=== PATIENT | male | born 1940 | race Caucasian/White ===

== ENCOUNTER 2017-07-12 11:49 | Emergency (ER) | payer MEDICARE, OTHER, MEDICAID ==
[2017-07-12 14:05] VITALS: BP 128/59
--- NOTE | 2017-07-23 09:37 | EDM.PDOC ---
ED HPI GENERAL MEDICAL PROBLEM - General Chief Complaint: Lower Extremity Injury/Pain Stated Complaint: INFECTED TOE Time Seen by Provider: 07/12/17 12:00 Source of Information: Reports: Patient, Prison Records History Limitations: Reports: No Limitations - History of Present Illness INITIAL COMMENTS - FREE TEXT/NARRATIVE: This is a 76yo M with right second toe ischemia and progression up the foot. Patient states he feels increased pain of the foot and toe. Staff have reported a worsening of symptoms since his revascularization in [place]. Onset: Today Duration: Hour(s):, Getting Worse Location: Reports: Lower Extremity, Right Severity: Moderate Improves with: Reports: None Worsens with: Reports: None Associated Symptoms: Reports: No Other Symptoms - Related Data Allergies Allergy/AdvReac Type Severity Reaction Status Date / Time No Known Allergies Allergy Verified 07/22/17 09:42 Home Meds: Home Meds Acetaminophen [Tylenol] 650 mg PO Q6H PRN 09/21/16 [History] Acetaminophen/HYDROcodone [[place] 325-5 MG] 1 - 2 tab PO Q6HR PRN 09/21/16 [ History] Alum Hydrox/Mag Hydrox/Simeth [Maalox Advanced] 1 ml PO BIDMEALS 09/21/16 [ History] Aspirin/Dipyridamole [Aggrenox 200-25 MG] 1 cap PO BID 09/21/16 [History] Ferrous Sulfate 325 mg PO BIDMEALS 09/21/16 [History] Finasteride [Proscar] 5 mg PO QPM 09/21/16 [History] Furosemide [Lasix] 20 mg PO DAILY 09/21/16 [History] Gabapentin [Neurontin] 300 mg PO DAILY 09/21/16 [History] Insulin Glarg,Human.Rec.Analog [Lantus Solostar] 24 unit SUBCUT QPM 09/21/16 [ History] L.acidoph,Paracasei, B.lactis [Probiotic] 1 each PO DAILY 09/21/16 [History] Loperamide HCl [Imodium A-D] 2 mg PO Q2H PRN 09/21/16 [History] Meclizine HCl 25 mg PO DAILY PRN 09/21/16 [History] Multivitamins [Childrens Chewable Vitamin] 1 tab PO DAILY 09/21/16 [History] Pantoprazole [ProTONIX] 40 mg PO ACBREAKFAST 09/21/16 [History] Sertraline [Zoloft] 50 mg PO DAILY 09/21/16 [History] Spironolactone [Aldactone] 12.5 mg PO Q48H 09/21/16 [History] atorvaSTATin [Lipitor] 20 mg PO BEDTIME 09/21/16 [History] diphenhydrAMINE [Benadryl] 50 mg PO Q6H PRN 09/21/16 [History] risperiDONE [RisperiDAL] 0.5 mg PO BID 09/21/16 [History] Acetaminophen/HYDROcodone [[place] 325-5 MG] 1 tab PO DAILY@1100 10/01/16 [History ] Meclizine HCl 25 mg PO DAILY 10/01/16 [History] Sulfamethoxazole/Trimethoprim [Bactrim Ds Tablet] 1 each PO BID #28 tablet 10/01 [Rx] Past Medical History HEENT History: Reports: Hard of Hearing, Sinusitis, Other (See Below) Other HEENT History: Wears glasses Cardiovascular History: Reports: High Cholesterol, Hypertension, Other (See Below) Other Cardiovascular History: CHF Gastrointestinal History: Reports: Other (See Below) Other Gastrointestinal History: Esophagitis Reflux Genitourinary History: Reports: Prostate Disorder Musculoskeletal History: Reports: Other (See Below) Other Musculoskeletal History: Contracture of toe, right foot, and 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 Neurological History: Reports: CVA Psychiatric History: Reports: Depression Endocrine/Metabolic History: Reports: Diabetes, Type II Hematologic History: Reports: Other (See Below) Other Hematologic History: 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 ED EXAM, GENERAL - Physical Exam Exam: See Below Exam Limited By: No Limitations General Appearance: Alert, WD/WN, Mild Distress Ears: Normal External Exam Head: Atraumatic, Normocephalic Neck: Normal Inspection Respiratory/Chest: No Respiratory Distress, Lungs Clear Cardiovascular: Other (decreased pulses of right lower ext, no pulses of right foot) Peripheral Pulses: 0: Dorsalis Pedis (R), 1+: Posterior Tibial (L), Posterior Tibial (R), Dorsalis Pedis (L) GI/Abdominal: Normal Bowel Sounds Neurological: Alert, Oriented, Sensory/Motor Deficit Psychiatric: Normal Affect, Normal Mood Skin Exam: Mottled (right foot) Course - Vital Signs Last Recorded V/S: Last Vital Signs Temp 36.3 C 07/12/17 12:03 Pulse 69 07/12/17 12:03 Resp 18 07/12/17 12:03 BP 128/59 L 07/12/17 12:03 Pulse Ox 99 07/12/17 12:03 Departure - Departure Time of Disposition: 13:00 Disposition: DC/Tfer to Acute Hospital 02 Reason for Transfer *Q: Other Condition: Serious Clinical Impression: Ischemic foot Referrals: PCP,None [Primary Care Provider] - Forms: ED Department Discharge Care Plan Goals: Patient transferred to [place] ER for further evaluation and management by Vascular.
== END 2017-07-12 13:48 ==
LOC: LB.ED 11:49
DX: I99.8 Other disorder of circulatory system (principal); M79.671 Pain in right foot
CPT/HCPCS: 99284; A0425; A0429

== ENCOUNTER 2017-07-22 08:53 | Emergency (ER) | payer MEDICARE, OTHER, MEDICAID ==
--- NOTE | 2017-07-22 09:34 | EDM.PDOC ---
ED HPI GENERAL MEDICAL PROBLEM - General Chief Complaint: Cardiovascular Problem Stated Complaint: RE-VASC R THIGH; ESCAR R TOE Time Seen by Provider: 07/22/17 09:24 Source of Information: Reports: Patient, Family, Correction Records, RN History Limitations: Reports: No Limitations - History of Present Illness INITIAL COMMENTS - FREE TEXT/NARRATIVE: 76 yr male presents with black right 2nd toe with pain to toe. Pt is alert and aware of this and is requesting consult for surgery. and daughters are present and in agreement to plan. Pt had been [facility] Jul 12 through July 17, [address] Gordillo for vascular procedure. Pt's toe changed color 07-19-17 to purple with no capillary refill. Discussed this with SANDIE Ibarra and states pt should be sent to [facility] on Saturday for possible below knee amputation. Pt has been alert and oriented this weekend and had increased amount of pain, controlled with [place]. He has been on Augmentin over the weekend. Pt does take Aggrenox daily. Hx of PAD, CAD, S/P AK, S/P CABG, S/P CVA with right HP, DM2, bipolar disorder and atherectomy of right tibial artery with [employer] 04/[address] Gordillo. [place] is [place] resident in the [facility]. P: CBC, lactic acid and BMP. Discussed pt status with Kevin Marx MD and states to transfer pt there today. - Related Data Allergies Allergy/AdvReac Type Severity Reaction Status Date / Time No Known Allergies Allergy Verified 07/22/17 09:42 Home Meds: Home Meds Acetaminophen [Tylenol] 650 mg PO Q6H PRN 09/21/16 [History] Acetaminophen/HYDROcodone [[place] 325-5 MG] 1 - 2 tab PO Q6HR PRN 09/21/16 [ History] Alum Hydrox/Mag Hydrox/Simeth [Maalox Advanced] 1 ml PO BIDMEALS 09/21/16 [ History] Aspirin/Dipyridamole [Aggrenox 200-25 MG] 1 cap PO BID 09/21/16 [History] Ferrous Sulfate 325 mg PO BIDMEALS 09/21/16 [History] Finasteride [Proscar] 5 mg PO QPM 09/21/16 [History] Furosemide [Lasix] 20 mg PO DAILY 09/21/16 [History] Gabapentin [Neurontin] 300 mg PO DAILY 09/21/16 [History] Insulin Glarg,Human.Rec.Analog [Lantus Solostar] 24 unit SUBCUT QPM 09/21/16 [ History] L.acidoph,Paracasei, B.lactis [Probiotic] 1 each PO DAILY 09/21/16 [History] Loperamide HCl [Imodium A-D] 2 mg PO Q2H PRN 09/21/16 [History] Meclizine HCl 25 mg PO DAILY PRN 09/21/16 [History] Multivitamins [Childrens Chewable Vitamin] 1 tab PO DAILY 09/21/16 [History] Pantoprazole [ProTONIX] 40 mg PO ACBREAKFAST 09/21/16 [History] Sertraline [Zoloft] 50 mg PO DAILY 09/21/16 [History] Spironolactone [Aldactone] 12.5 mg PO Q48H 09/21/16 [History] atorvaSTATin [Lipitor] 20 mg PO BEDTIME 09/21/16 [History] diphenhydrAMINE [Benadryl] 50 mg PO Q6H PRN 09/21/16 [History] risperiDONE [RisperiDAL] 0.5 mg PO BID 09/21/16 [History] Acetaminophen/HYDROcodone [[place] 325-5 MG] 1 tab PO DAILY@1100 10/01/16 [History ] Meclizine HCl 25 mg PO DAILY 10/01/16 [History] Sulfamethoxazole/Trimethoprim [Bactrim Ds Tablet] 1 each PO BID #28 tablet 10/01 [Rx] Past Medical History HEENT History: Reports: Hard of Hearing, Sinusitis, Other (See Below) Other HEENT History: Wears glasses Cardiovascular History: Reports: High Cholesterol, Hypertension, Other (See Below) Other Cardiovascular History: CHF Gastrointestinal History: Reports: Other (See Below) Other Gastrointestinal History: Esophagitis Reflux Genitourinary History: Reports: Prostate Disorder Musculoskeletal History: Reports: Other (See Below) Other Musculoskeletal History: Contracture of toe, right foot, and 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 Neurological History: Reports: CVA Psychiatric History: Reports: Depression Endocrine/Metabolic History: Reports: Diabetes, Type II Hematologic History: Reports: Other (See Below) Other Hematologic History: 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 Dermatologic History: Reports: Cellulitis - Past Surgical History Cardiovascular Surgical History: Reports: Other (See Below) Social & Family History - Family History Family Medical History: Noncontributory - Tobacco Use Smoking Status *Q: Never Smoker - Caffeine Use Caffeine Use: Reports: Soda - Recreational Drug Use Recreational Drug Use: No ED ROS GENERAL - Review of Systems Review Of Systems: See Below Constitutional: Reports: Weakness HEENT: Reports: Glasses Respiratory: Reports: No Symptoms Cardiovascular: Reports: Other (black right 2nd toe.) Endocrine: Reports: Other (diabetic) GI/Abdominal: Reports: No Symptoms Musculoskeletal: Reports: Other (pain right foot) Skin: Reports: Change in Color (right toe) Neurological: Reports: No Symptoms Psychiatric: Reports: No Symptoms ED EXAM, GENERAL - Physical Exam Exam: See Below Exam Limited By: No Limitations General Appearance: Alert, No Apparent Distress Ear Exam: Bilateral Ear: Auricle Normal Throat/Mouth: Normal Inspection, Normal Lips, Normal Teeth Head: Atraumatic, Normocephalic Neck: Supple, Non-Tender Respiratory/Chest: No Respiratory Distress, Lungs Clear, Decreased Breath Sounds Cardiovascular: Regular Rate, Rhythm, No Edema, Other (irregular heart rate noted.) GI/Abdominal: Soft, Non-Tender Extremities: No Pedal Edema, Other (pain right foot, medicated around 8am, wheelchair used for mobility) Neurological: Alert, Oriented Psychiatric: Normal Mood Skin Exam: Warm, Dry, Normal Color Course - Orders/Labs/Meds Orders: Active Orders 24 hr Category Date Time Status BASIC METABOLIC PANEL,BMP [CHEM] Stat Lab 07/22/17 09:24 Ordered LACTIC ACID [CHEM] Stat Lab 07/22/17 09:24 Ordered Labs: Laboratory Tests 07/22/17 Range/Units 09:46 WBC 8.6 (4.0-11.0) K/uL RBC 3.34 L (4.50-6.50) M/uL Hgb 9.9 L (13.0-18.0) g/dL Hct 31.6 L (40.0-54.0) % MCV 95 (76-96) fL MCH 29.6 (27.0-32.0) pg MCHC 31.3 (31.0-35.0) g/dL RDW 14.0 (11.0-16.0) % Plt Count 186 D (150-400) K/uL MPV 9.1 (6.0-10.0) fL Neut % (Auto) 67.4 (45.0-70.0) % Lymph % (Auto) 17.1 L (20.0-40.0) % [place] % (Auto) 12.0 H (3.0-10.0) % Eos % (Auto) 3.0 (1.0-5.0) % Baso % (Auto) 0.5 (0.0-0.5) % Neut # (Auto) 5.82 (2.00-7.50) K/uL Lymph # (Auto) 1.48 L (1.50-4.00) K/uL [place] # (Auto) 1.04 H (0.20-0.80) K/uL Eos # (Auto) 0.26 (0.04-0.40) K/uL Baso # (Auto) 0.04 (0.02-0.10) K/uL - Re-Assessments/Exams Free Text/Narrative Re-Assessment/Exam: 07/22/17 09:48 is Isabell, her daughter is with her and will meet the ambulance in [facility]. Departure - Departure Time of Disposition: 09:48 Disposition: DC/Tfer to Acute Hospital 02 Reason for Transfer *Q: Other (surgical consult, amputation probable) Condition: Good Clinical Impression: Ischemic necrosis of toe Referrals: PCP,None [Primary Care Provider] - Forms: ED Department Discharge - My Orders Last 24 Hours: My Active Orders 07/22/17 09:24 BASIC METABOLIC PANEL,BMP [CHEM] Stat LACTIC ACID [CHEM] Stat - Assessment/Plan Last 24 Hours: My Active Orders 07/22/17 09:24 BASIC METABOLIC PANEL,BMP [CHEM] Stat LACTIC ACID [CHEM] Stat
[2017-07-22 10:07] VITALS: BP 138/71
== END 2017-07-22 10:00 ==
LOC: LB.ED 08:53
DX: E11.52 Type 2 diabetes mellitus with diabetic peripheral angiopathy with gangrene (principal); I96 Gangrene, not elsewhere classified; I11.0 Hypertensive heart disease with heart failure; I25.10 Atherosclerotic heart disease of native coronary artery without angina pectoris; I50.9 Heart failure, unspecified; E78.00 Pure hypercholesterolemia, unspecified; F32.9 Major depressive disorder, single episode, unspecified; Z79.4 Long term (current) use of insulin; Z79.82 Long term (current) use of aspirin; Z79.899 Other long term (current) drug therapy
CPT/HCPCS: 36415; 80048; 83605; 85025; 99284; A0425; A0429

== ENCOUNTER 2017-07-26 09:40 | Inpatient (IN) | payer MEDICARE, OTHER, MEDICAID ==
[2017-07-26] MEDS ORDERED: Acetaminophen/HYDROcodone 325-10 MG Tab PO ONE (16:20)
[2017-07-26] MEDS ORDERED: Tuberculin, PPD 5 Units/0.1 ML 1 ML MDV IDERM ONE (16:39)
[2017-07-26] MEDS ORDERED: diphenhydrAMINE 50 MG Cap PO PRN (16:41)
--- NOTE | 2017-07-26 16:50 | PCM.HP ---
H&P History of Present Illness - General Date of Service: 07/26/17 Admit Problem/Dx: Admission Diagnosis/Problem Admission Diagnosis/Problem Amputation of lower limb Source of Information: Other (Hospital records) History Limitations: Reports: No Limitations - History of Present Illness Initial Comments - Free Text/Narative: Pt is a 76 ryan old male with old CVA with right sided hemiplegia with PVD, who has had right below knee amputation done at [facility]. He is here for rehab. Pt has had uneventful post op period. He has had some urinary retention, but has been passing urine on his own and does need 1-2 times straight catheterizing to empty the bladder. No fever or chills. Apparently during transfer pt did slide of the chair and has been c/o pain over hte righ shoulder and upper back. No skin tear or bruising. no other complaints. Severity: Moderate Improves with: Reports: None Worsens with: Reports: None Associated Symptoms: Denies: Confusion, Chest Pain, Cough, Fever/Chills, Nausea/ Vomiting, Rash, Seizure, Shortness of Breath, Weakness - Related Data Allergies/Adverse Reactions: Allergies Allergy/AdvReac Type Severity Reaction Status Date / Time No Known Allergies Allergy Verified 07/22/17 09:42 Home Medications: Home Meds Acetaminophen [Tylenol] 650 mg PO Q6H PRN 09/21/16 [History] Acetaminophen/HYDROcodone [[place] 325-5 MG] 1 - 2 tab PO Q6HR PRN 09/21/16 [ History] Alum Hydrox/Mag Hydrox/Simeth [Maalox Advanced] 1 ml PO BIDMEALS 09/21/16 [ History] Aspirin/Dipyridamole [Aggrenox 200-25 MG] 1 cap PO BID 09/21/16 [History] Ferrous Sulfate 325 mg PO BIDMEALS 09/21/16 [History] Finasteride [Proscar] 5 mg PO QPM 09/21/16 [History] Furosemide [Lasix] 20 mg PO DAILY 09/21/16 [History] Gabapentin [Neurontin] 300 mg PO DAILY 09/21/16 [History] Insulin Glarg,Human.Rec.Analog [Lantus Solostar] 24 unit SUBCUT QPM 09/21/16 [ History] L.acidoph,Paracasei, B.lactis [Probiotic] 1 each PO DAILY 09/21/16 [History] Loperamide HCl [Imodium A-D] 2 mg PO Q2H PRN 09/21/16 [History] Meclizine HCl 25 mg PO DAILY PRN 09/21/16 [History] Multivitamins [Childrens Chewable Vitamin] 1 tab PO DAILY 09/21/16 [History] Pantoprazole [ProTONIX] 40 mg PO ACBREAKFAST 09/21/16 [History] Sertraline [Zoloft] 50 mg PO DAILY 09/21/16 [History] Spironolactone [Aldactone] 12.5 mg PO Q48H 09/21/16 [History] atorvaSTATin [Lipitor] 20 mg PO BEDTIME 09/21/16 [History] diphenhydrAMINE [Benadryl] 50 mg PO Q6H PRN 09/21/16 [History] risperiDONE [RisperiDAL] 0.5 mg PO BID 09/21/16 [History] Acetaminophen/HYDROcodone [[place] 325-5 MG] 1 tab PO DAILY@1100 10/01/16 [History ] Meclizine HCl 25 mg PO DAILY 10/01/16 [History] Sulfamethoxazole/Trimethoprim [Bactrim Ds Tablet] 1 each PO BID #28 tablet 10/01 [Rx] Past Medical History HEENT History: Reports: Hard of Hearing, Sinusitis, Other (See Below) Other HEENT History: Wears glasses Cardiovascular History: Reports: High Cholesterol, Hypertension, Other (See Below) Other Cardiovascular History: CHF Gastrointestinal History: Reports: Other (See Below) Other Gastrointestinal History: Esophagitis Reflux Genitourinary History: Reports: Prostate Disorder Musculoskeletal History: Reports: Other (See Below) Other Musculoskeletal History: Contracture of toe, right foot, and 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 Neurological History: Reports: CVA Psychiatric History: Reports: Depression Endocrine/Metabolic History: Reports: Diabetes, Type II Hematologic History: Reports: Other (See Below) Other Hematologic History: 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 Dermatologic History: Reports: Cellulitis - Past Surgical History Cardiovascular Surgical History: Reports: Other (See Below) Social & Family History - Family History Family Medical History: Noncontributory - Tobacco Use Smoking Status *Q: Never Smoker - Caffeine Use Caffeine Use: Reports: Soda - Recreational Drug Use Recreational Drug Use: No H&P Review of Systems - Review of Systems: Review Of Systems: See Below General: Denies: Fever, Chills HEENT: Denies: Vertigo, Visual Changes Pulmonary: Denies: Shortness of Breath, Wheezing, Cough, Sputum Cardiovascular: Denies: Chest Pain, Lightheadedness, Syncope Gastrointestinal: Denies: Abdominal Pain, Nausea, Vomiting Musculoskeletal: Reports: Shoulder Pain, Leg Pain (right leg). Denies: Joint Pain, Joint Swelling Skin: Denies: Bruising, Pruritis, Erythema Psychiatric: Denies: Confusion, Depression Exam - Exam Exam: See Below - Vital Signs Weight: 94.488 kg - Exam General: Alert, Oriented, 4 HEENT: PERRLA, Hearing Intact, Mucosa Moist & [place], Nares Patent, Normal Nasal Septum, Posterior Pharynx Clear, Conjunctiva Clear, EOMI, EACs Clear, TMs Clear Neck: Supple, Trachea Midline, 2 Lungs: Clear to Auscultation, Normal Respiratory Effort Cardiovascular: Regular Rate, Regular Rhythm GI/Abdominal Exam: Normal Bowel Sounds, Soft, Non-Tender, No Organomegaly, No Distention, No Abnormal Bruit, No Mass Back Exam: Normal Inspection, Full Range of Motion, Other (pt is tender to pressure over the right suprascapular and scapular blade region. No crepitus felt. No skin bruising or swelling seen.) Extremities: Normal Inspection, Normal Range of Motion, No Pedal Edema, Normal Capillary Refill, Other (Right lower extremity: the BKA stump appear clean and healthy. There is minmal serous dischrge form the wound. [place] in palce. Minimal tenderness to touch. No signs of infection.) *Q Meaningful Use (ADM) - VTE *Q VTE Criteria *Q: - Stroke *Q Stroke Criteria *Q: - AMI *Q AMI Criteria *Q: - Problem List (1) Below knee amputation status SNOMED Code(s): 767371544 ICD Code: Z89.519 - ACQUIRED ABSENCE OF UNSPECIFIED LEG BELOW KNEE Status: Acute Current Visit: Yes Problem List Initiated/Reviewed/Updated: Yes Orders Last 24hrs: Active Orders 24 hr Category Date Time Status Admission Status [Patient Status] [ADT] Routine ADT 07/26/17 16:22 Active Patient Status [ADT] Routine ADT 07/26/17 16:39 Ordered OT Evaluation and Treatment [CONS] Routine Cons 07/26/17 16:39 Ordered PT Evaluation and Treatment [CONS] Routine Cons 07/26/17 16:39 Ordered Acetaminophen [Tylenol] Med 07/26/17 16:41 Ordered 650 mg PO Q6H PRN Acetaminophen/HYDROcodone [[place] 325-5 MG] Med 07/27/17 11:00 Ordered 1 tab PO DAILY@1100 Alum Hydrox/Mag Hydrox/Simeth [Maalox Advanced] Med 07/26/17 17:00 Ordered 1 ml PO BIDMEALS Aspirin/Dipyridamole [Aggrenox 200-25 MG] Med 07/26/17 20:00 Ordered 1 cap PO BID Ferrous Sulfate Med 07/26/17 17:00 Ordered 325 mg PO BIDMEALS Finasteride [Proscar] Med 07/26/17 20:00 Ordered 5 mg PO QPM Furosemide [Lasix] Med 07/27/17 08:00 Ordered 20 mg PO DAILY Gabapentin [Neurontin] Med 07/27/17 08:00 Ordered 300 mg PO DAILY Insulin Glarg,Human.Rec.Analog [LantUS Solostar] Med 07/26/17 20:00 Ordered 24 units SUBCUT QPM L.acidoph,Paracasei, B.lactis [Probiotic] Med 07/27/17 08:00 Ordered 1 each PO DAILY Loperamide HCl [Imodium A-D] Med 07/26/17 16:41 Ordered 2 mg PO Q2H PRN Meclizine HCl [Meclizine HCl] Med 07/27/17 08:00 Ordered 25 mg PO DAILY Meclizine HCl [Meclizine HCl] Med 07/26/17 16:41 Ordered 25 mg PO DAILY PRN Multivitamins [Childrens Chewable Vitamin] Med 07/27/17 08:00 Ordered 1 tab PO DAILY Pantoprazole [ProTONIX] Med 07/27/17 07:00 Ordered 40 mg PO ACBREAKFAST Sertraline [Zoloft] Med 07/27/17 08:00 Ordered 50 mg PO DAILY Spironolactone [Aldactone] Med 07/26/17 16:45 Ordered 12.5 mg PO Q48H Sulfamethoxazole/Trimethoprim [Septra DS] Med 07/26/17 20:00 Ordered 1 each PO BID Tuberculin, PPD [Aplisol] Med 07/26/17 16:39 Once 5 unit IDERM ONETIME ONE atorvaSTATin [Lipitor] Med 07/26/17 20:00 Ordered 20 mg PO BEDTIME diphenhydrAMINE [Benadryl] Med 07/26/17 16:41 Ordered 50 mg PO Q6H PRN risperiDONE [RisperiDAL] Med 07/26/17 20:00 Ordered 0.5 mg PO BID Resuscitation Status Routine Resus Stat 07/26/17 16:39 Ordered Medication Orders Acetaminophen (Tylenol) 650 mg PO Q6H PRN PRN Reason: Pain Hydrocodone Bitart/Acetaminophen ([place] 325-5 Mg) 1 tab PO DAILY@1100 [facility] Al Hydroxide/Mg Hydroxide (Maalox Advanced) 1 ml PO BIDMEALS [facility] Atorvastatin Calcium (Lipitor) 20 mg PO BEDTIME [facility] Diphenhydramine HCl (Benadryl) 50 mg PO Q6H PRN PRN Reason: Itching Dipyridamole/Aspirin (Aggrenox 200-25 Mg) 1 cap PO BID [facility] Ferrous Sulfate (Ferrous Sulfate) 325 mg PO BIDMEALS [facility] Finasteride (Proscar) 5 mg PO QPM [facility] Furosemide (Lasix) 20 mg PO DAILY [facility] Gabapentin (Neurontin) 300 mg PO DAILY [facility] Insulin Glargine (Lantus Solostar) 24 units SUBCUT QPM [facility] Multivitamins/Minerals/Vitamin C (Childrens Chewable Vitamin) 1 tab PO DAILY [facility] Non-Formulary Medication (Meclizine Hcl [Meclizine Hcl]) 25 mg PO DAILY PRN PRN Reason: Dizziness Non-Formulary Medication (Loperamide Hcl [Imodium A-D]) 2 mg PO Q2H PRN PRN Reason: Diarrhea Non-Formulary Medication (Risperidone [Risperidal]) 0.5 mg PO BID [facility] Non-Formulary Medication (Meclizine Hcl [Meclizine Hcl]) 25 mg PO DAILY [facility] Non-Formulary Medication (L.Acidoph,Paracasei, B.Lactis [Probiotic]) 1 each PO DAILY [facility] Pantoprazole Sodium (Protonix) 40 mg PO ACBREAKFAST [facility] Sertraline HCl (Zoloft) 50 mg PO DAILY [facility] Spironolactone (Aldactone) 12.5 mg PO Q48H [facility] Trimethoprim/Sulfamethoxazole (Septra Ds) tab PO BID [facility] Tuberculin PPD (Aplisol) 5 unit IDERM ONETIME ONE Stop: 07/26/17 16:40 Assessment/Plan Comment:: Assessment: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 The wound appears clean and healthy. He has soft tissue injury of the right shoulder. Will continue his present medication regime. Will have OT and pt evaluation and pain control. When patient is stable enough to be at care center will plan on transfer.
[2017-07-26] MEDS ORDERED: Loperamide 2 MG Cap PO PRN (19:15)
[2017-07-26] MEDS: Aspirin/Dipyridamole 200-25 MG Cap.ER PO SCH (21:34)
[2017-07-26] MEDS: risperiDONE 1 MG Tab PO SCH (21:35)
[2017-07-26] MEDS: Finasteride 5 MG Tab PO SCH (21:35)
[2017-07-26] MEDS: Sulfamethoxazole/Trimethoprim 800-160 MG Tab PO SCH (21:35)
[2017-07-26] MEDS: atorvaSTATin 20 MG Tab PO SCH (21:37)
[2017-07-26] MEDS: Insulin Detemir 100 Units/ML 3 ML Pen SUBCUT SCH (22:05)
[2017-07-26] MEDS: Spironolactone 25 MG Tab PO SCH (22:23)
[2017-07-26] MEDS: Ferrous Sulfate 325 MG Tab PO SCH (22:24)
[2017-07-27] MEDS ORDERED: Gabapentin 300 MG Cap PO SCH (08:00)
[2017-07-27] MEDS ORDERED: Acetaminophen/HYDROcodone 325-10 MG Tab ONE ×2 (08:13→13:09)
[2017-07-27] MEDS: risperiDONE 1 MG Tab PO SCH ×2 (08:18→19:37)
[2017-07-27] MEDS: Multivitamin, Childrens Tab.Chew PO SCH (08:18)
[2017-07-27] MEDS: Aluminum Hydroxide/Magnesium Hydroxide/Simethicone Susp 30 ML Cup PO SCH ×2 (08:18→17:44)
[2017-07-27] MEDS: Ferrous Sulfate 325 MG Tab PO SCH ×2 (08:18→17:45)
[2017-07-27] MEDS: Aspirin/Dipyridamole 200-25 MG Cap.ER PO SCH ×2 (08:18→19:35)
[2017-07-27] MEDS: Sulfamethoxazole/Trimethoprim 800-160 MG Tab PO SCH ×2 (08:19→19:36)
[2017-07-27] MEDS: Lactobacillus Acidophilus/Lactobacillus Sporogenes (Probiotic) Tab PO SCH (08:19)
[2017-07-27] MEDS: Sertraline 50 MG Tab PO SCH (08:19)
[2017-07-27] MEDS: Furosemide 20 MG Tab PO SCH (08:19)
[2017-07-27] MEDS: Pantoprazole 40 MG Tab.CR PO SCH (08:19)
[2017-07-27] MEDS: Acetaminophen/HYDROcodone 325-5 MG Tab PO SCH (12:04)
[2017-07-27] MEDS: Gabapentin 300 MG Cap PO SCH ×2 (13:11→19:36)
[2017-07-27] MEDS: Finasteride 5 MG Tab PO SCH (19:36)
[2017-07-27] MEDS: atorvaSTATin 20 MG Tab PO SCH (19:36)
[2017-07-27] MEDS: Insulin Detemir 100 Units/ML 3 ML Pen SUBCUT SCH (19:44)
[2017-07-27] MEDS: Acetaminophen/HYDROcodone 325-10 MG Tab PO PRN (21:59)
[2017-07-28] MEDS: Pantoprazole 40 MG Tab.CR PO SCH (07:40)
[2017-07-28] MEDS: Aluminum Hydroxide/Magnesium Hydroxide/Simethicone Susp 30 ML Cup PO SCH ×2 (07:47→16:29)
[2017-07-28] MEDS: Multivitamin, Childrens Tab.Chew PO SCH (07:47)
[2017-07-28] MEDS: Furosemide 20 MG Tab PO SCH (07:47)
[2017-07-28] MEDS: risperiDONE 1 MG Tab PO SCH ×2 (07:48→19:17)
[2017-07-28] MEDS: Sertraline 50 MG Tab PO SCH (07:48)
[2017-07-28] MEDS: Lactobacillus Acidophilus/Lactobacillus Sporogenes (Probiotic) Tab PO SCH (07:48)
[2017-07-28] MEDS: Sulfamethoxazole/Trimethoprim 800-160 MG Tab PO SCH ×2 (07:48→19:16)
[2017-07-28] MEDS: Gabapentin 300 MG Cap PO SCH ×3 (07:48→19:16)
[2017-07-28] MEDS: Ferrous Sulfate 325 MG Tab PO SCH ×2 (07:48→16:29)
[2017-07-28] MEDS: Aspirin/Dipyridamole 200-25 MG Cap.ER PO SCH ×2 (07:48→19:16)
[2017-07-28] MEDS: Acetaminophen/HYDROcodone 325-10 MG Tab PO PRN ×2 (09:11→19:30)
[2017-07-28] MEDS: Acetaminophen/HYDROcodone 325-5 MG Tab PO SCH (11:10)
[2017-07-28] MEDS ORDERED: Gabapentin 300 MG Cap ONE (16:27)
[2017-07-28] MEDS: Spironolactone 25 MG Tab PO SCH (16:33)
[2017-07-28] MEDS: Finasteride 5 MG Tab PO SCH (19:16)
[2017-07-28] MEDS: atorvaSTATin 20 MG Tab PO SCH (19:16)
[2017-07-28] MEDS: Insulin Detemir 100 Units/ML 3 ML Pen SUBCUT SCH (19:17)
[2017-07-29] MEDS: Acetaminophen 325 MG Tab PO PRN (00:10)
[2017-07-29] MEDS: Pantoprazole 40 MG Tab.CR PO SCH (06:19)
[2017-07-29] MEDS: Lactobacillus Acidophilus/Lactobacillus Sporogenes (Probiotic) Tab PO SCH (08:21)
[2017-07-29] MEDS: Aspirin/Dipyridamole 200-25 MG Cap.ER PO SCH ×2 (08:21→19:45)
[2017-07-29] MEDS: Furosemide 20 MG Tab PO SCH (08:21)
[2017-07-29] MEDS: Sulfamethoxazole/Trimethoprim 800-160 MG Tab PO SCH ×2 (08:21→19:46)
[2017-07-29] MEDS: Multivitamin, Childrens Tab.Chew PO SCH (08:21)
[2017-07-29] MEDS: Gabapentin 300 MG Cap PO SCH ×3 (08:22→19:46)
[2017-07-29] MEDS: Aluminum Hydroxide/Magnesium Hydroxide/Simethicone Susp 30 ML Cup PO SCH ×2 (08:22→17:15)
[2017-07-29] MEDS: risperiDONE 1 MG Tab PO SCH ×2 (08:22→19:46)
[2017-07-29] MEDS: Sertraline 50 MG Tab PO SCH (08:22)
[2017-07-29] MEDS: Ferrous Sulfate 325 MG Tab PO SCH ×2 (08:22→17:15)
[2017-07-29] MEDS: Acetaminophen/HYDROcodone 325-10 MG Tab PO PRN ×2 (09:16→13:59)
[2017-07-29] MEDS: Acetaminophen/HYDROcodone 325-5 MG Tab PO SCH (11:47)
[2017-07-29] MEDS: atorvaSTATin 20 MG Tab PO SCH (19:45)
[2017-07-29] MEDS: Finasteride 5 MG Tab PO SCH (19:45)
[2017-07-29] MEDS: Cyclobenzaprine 10 MG Tab PO PRN (19:46)
[2017-07-29] MEDS: Insulin Detemir 100 Units/ML 3 ML Pen SUBCUT SCH (19:47)
[2017-07-30] MEDS: Acetaminophen/HYDROcodone 325-10 MG Tab PO PRN ×3 (01:30→17:59)
[2017-07-30] MEDS: Gabapentin 300 MG Cap PO SCH ×3 (08:08→20:02)
[2017-07-30] MEDS: risperiDONE 1 MG Tab PO SCH ×2 (08:09→20:02)
[2017-07-30] MEDS: Cyclobenzaprine 10 MG Tab PO PRN ×2 (08:09→22:49)
[2017-07-30] MEDS: Pantoprazole 40 MG Tab.CR PO SCH (08:10)
[2017-07-30] MEDS: Multivitamin, Childrens Tab.Chew PO SCH (08:10)
[2017-07-30] MEDS: Aspirin/Dipyridamole 200-25 MG Cap.ER PO SCH ×2 (08:10→20:02)
[2017-07-30] MEDS: Sertraline 50 MG Tab PO SCH (08:10)
[2017-07-30] MEDS: Ferrous Sulfate 325 MG Tab PO SCH ×2 (08:10→17:59)
[2017-07-30] MEDS: Sulfamethoxazole/Trimethoprim 800-160 MG Tab PO SCH ×2 (08:10→20:02)
[2017-07-30] MEDS: Lactobacillus Acidophilus/Lactobacillus Sporogenes (Probiotic) Tab PO SCH (08:10)
[2017-07-30] MEDS: Furosemide 20 MG Tab PO SCH (08:12)
[2017-07-30] MEDS: Aluminum Hydroxide/Magnesium Hydroxide/Simethicone Susp 30 ML Cup PO SCH ×2 (08:12→17:59)
[2017-07-30] MEDS: Acetaminophen/HYDROcodone 325-5 MG Tab PO SCH (10:50)
--- NOTE | 2017-07-30 11:36 | CR ---
DATE OF SERVICE: 07/30/17 CLINICAL DATA: pain in arm RIGHT SHOULDER: No priors. Portable AP views were obtained. There is a questionable lucency through the distal clavicle suspicious for a fracture. I do not see any other definite abnormalities, however, the views submitted are not adequate to exclude other abnormalities. [id number] MTDD
--- NOTE | 2017-07-30 13:48 | PCM.PN ---
- General Info Date of Service: 07/30/17 Subjective Update: Pt has been doing well. He has been working with OT and PT, getting stronger. Has been feeding well. Apparently he has continued to complain of pain in his right shoulder, but he is hard to localize the pain. HE c/o pain with any movement of his right arm, which has contracture form the previous stroke. Functional Status: Reports: Pain Controlled, Tolerating Diet - Review of Systems General: Denies: Fever, Weakness HEENT: Denies: Headaches, Sinus Congestion Pulmonary: Denies: Sputum, Hemoptysis Cardiovascular: Denies: Chest Pain, Lightheadedness Gastrointestinal: Denies: Abdominal Pain, Nausea, Vomiting Musculoskeletal: Reports: Shoulder Pain. Denies: Joint Pain, Joint Swelling Skin: Reports: Bruising. Denies: Pruritis Neurological: Reports: Pre-Existing Deficit. Denies: Confusion, Dizziness, Headache - Patient Data Vitals - Most Recent: Last Vital Signs Temp 97.8 F 07/29/17 19:41 Pulse 78 07/30/17 08:00 Resp 16 07/30/17 08:00 BP 113/56 L 07/30/17 08:00 Pulse Ox 96 07/30/17 08:00 Weight - Most Recent: 94.347 kg I&O - Last 24 Hours: Intake & Output 07/29/17 07/30/17 07/30/17 22:59 06:59 14:59 Intake Total 600 175 Output Total 700 150 Balance -100 25 Lab Results Last 24 Hours: Laboratory Results - last 24 hr 07/29/17 07/30/17 Range/Units 18:40 06:17 POC Glucose 255 H 157 H (74-110) mg/dL Med Orders - Current: Current Medications Acetaminophen (Tylenol) 650 mg PO Q6H PRN PRN Reason: Pain Last Admin: 07/29/17 00:10 Dose: 650 mg Hydrocodone Bitart/Acetaminophen ([place] 325-5 Mg) 1 tab PO DAILY@1100 [facility] Last Admin: 07/30/17 10:50 Dose: 1 tab Hydrocodone Bitart/Acetaminophen ([place] 325-10 Mg) 1 tab PO Q6H PRN PRN Reason: Pain (moderate 4-6) Last Admin: 07/30/17 08:10 Dose: 1 tab Al Hydroxide/Mg Hydroxide (Mag-Al Plus) 30 ml PO BIDMEALS [facility] Last Admin: 07/30/17 08:12 Dose: 30 ml Atorvastatin Calcium (Lipitor) 20 mg PO BEDTIME [facility] Last Admin: 07/29/17 19:45 Dose: 20 mg Cyclobenzaprine HCl (Flexeril) 10 mg PO DAILY PRN PRN Reason: Muscle Spasm Last Admin: 07/30/17 08:09 Dose: 10 mg Diphenhydramine HCl (Benadryl) 50 mg PO Q6H PRN PRN Reason: Itching Dipyridamole/Aspirin (Aggrenox 200-25 Mg) 1 cap PO BID [facility] Last Admin: 07/30/17 08:10 Dose: 1 cap Ferrous Sulfate (Ferrous Sulfate) 325 mg PO BIDMEALS [facility] Last Admin: 07/30/17 08:10 Dose: 325 mg Finasteride (Proscar) 5 mg PO QPM [facility] Last Admin: 07/29/17 19:45 Dose: 5 mg Furosemide (Lasix) 20 mg PO DAILY [facility] Last Admin: 07/30/17 08:12 Dose: 20 mg Gabapentin (Neurontin) 300 mg PO TID [facility] Last Admin: 07/30/17 08:08 Dose: 300 mg Insulin Detemir (Levemir) 24 unit SUBCUT QPM [facility] Last Admin: 07/29/17 19:47 Dose: 24 units Lactobacillus Acidophilus (Acidolphilus Extra Strength) 1 tab PO DAILY [facility] Last Admin: 07/30/17 08:10 Dose: 1 tab Loperamide HCl (Imodium) 2 mg PO Q2H PRN PRN Reason: Diarrhea Meclizine HCl (Antivert) 25 mg PO DAILY PRN PRN Reason: Dizziness Meclizine HCl (Antivert) 25 mg PO DAILY [facility] Last Admin: 07/30/17 08:09 Dose: 25 mg Multivitamins/Minerals/Vitamin C (Childrens Chewable Vitamin) 1 tab PO DAILY [facility] Last Admin: 07/30/17 08:10 Dose: 1 tab Pantoprazole Sodium (Protonix) 40 mg PO ACBREAKFAST [facility] Last Admin: 07/30/17 08:10 Dose: 40 mg Risperidone (Risperidal) 0.5 mg PO BID [facility] Last Admin: 07/30/17 08:09 Dose: 0.5 mg Sertraline HCl (Zoloft) 50 mg PO DAILY [facility] Last Admin: 07/30/17 08:10 Dose: 50 mg Spironolactone (Aldactone) 12.5 mg PO Q48H [facility] Last Admin: 07/28/17 16:33 Dose: 12.5 mg Trimethoprim/Sulfamethoxazole (Septra Ds) 1 tab PO BID [facility] Stop: 08/02/17 20:30 Last Admin: 07/30/17 08:10 Dose: 1 tab Discontinued Medications Hydrocodone Bitart/Acetaminophen ([place] 325-10 Mg) 1 tab PO ONETIME ONE Stop: 07/26/17 16:21 Last Admin: 07/26/17 16:28 Dose: 1 tab Hydrocodone Bitart/Acetaminophen ([place] 325-10 Mg) Confirm Administered Dose 1 tab .ROUTE .STK-MED ONE Stop: 07/27/17 08:14 Last Admin: 07/27/17 08:17 Dose: 1 tab Hydrocodone Bitart/Acetaminophen ([place] 325-10 Mg) Confirm Administered Dose 1 tab .ROUTE .STK-MED ONE Stop: 07/27/17 13:10 Last Admin: 07/27/17 13:11 Dose: 1 tab Gabapentin (Neurontin) 300 mg PO DAILY [facility] Last Admin: 07/27/17 08:19 Dose: 300 mg Gabapentin (Neurontin) Confirm Administered Dose 300 mg .ROUTE .STK-MED ONE Stop: 07/28/17 16:28 Last Admin: 07/28/17 16:31 Dose: Not Given Tuberculin PPD (Aplisol) 5 unit IDERM ONETIME ONE Stop: 07/26/17 16:40 Last Admin: 07/30/17 09:21 Dose: 5 unit - Exam Quality Assessment: Urine Catheter (He does havecathere to help heal his sacral decubitus ulcer) General: Alert, Oriented HEENT: Pupils Equal, Pupils Reactive, EOMI, Mucous Membr. Moist/[place] Neck: Supple Lungs: Clear to Auscultation, Normal Respiratory Effort Cardiovascular: Regular Rate, Regular Rhythm Extremities: Normal Range of Motion, Other (Right BKA is healing well. Right shoulder: pt has pain with movement of the arm. He is not tender over the distal clavicle to pressure. There is bruise seen in the lower axilla.) Skin: Warm, Intact, Other (does have stage 1 decubitus ulcer over sacrum improving) Neurological: No New Focal Deficit - Problem List & Annotations (1) Below knee amputation status SNOMED Code(s): 430295405 Code(s): Z89.519 - ACQUIRED ABSENCE OF UNSPECIFIED LEG BELOW KNEE Status: Acute Current Visit: Yes (2) Clavicular fracture SNOMED Code(s): 62437711 Code(s): S42.009A - FRACTURE OF UNSP PART OF UNSP CLAVICLE, INIT FOR CLOS FX Status: Acute Current Visit: Yes - Problem List Review Problem List Initiated/Reviewed/Updated: Yes - My Orders Last 24 Hours: My Active Orders 07/30/17 Lunch Consistent Carbohydrate Diet [DIET] Heart Healthy Diet [DIET] - Plan Plan:: Assessment: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 The wound appears clean and healthy. He has soft tissue injury of the right shoulder. Will continue his present medication regime. Will have OT and pt evaluation and pain control. When patient is stable enough to be at care center will plan on transfer. 07/30/17 Pt's Xry does show faint lucency in the distal clavicle of right shoulder. He does have pain with ROM. But does not seem to have point tenderness over the Distal clavicle. I have advised OT not to do ROM involving right arm and shoulder. Will continue present medications. Will wait and let it heal by primary intention. He has contracture and very limited mobility of the right upper extremity any way from his previous stroke.
[2017-07-30] MEDS: Spironolactone 25 MG Tab PO SCH (19:21)
[2017-07-30] MEDS: atorvaSTATin 20 MG Tab PO SCH (19:50)
[2017-07-30] MEDS: Insulin Detemir 100 Units/ML 3 ML Pen SUBCUT SCH (19:57)
[2017-07-30] MEDS: Finasteride 5 MG Tab PO SCH (20:02)
[2017-07-31] MEDS: Acetaminophen/HYDROcodone 325-10 MG Tab PO PRN ×4 (01:43→20:07)
[2017-07-31] MEDS: Acetaminophen 325 MG Tab PO PRN (06:17)
[2017-07-31] MEDS: Ferrous Sulfate 325 MG Tab PO SCH ×2 (08:13→17:22)
[2017-07-31] MEDS: Gabapentin 300 MG Cap PO SCH ×3 (08:13→20:07)
[2017-07-31] MEDS: Multivitamin, Childrens Tab.Chew PO SCH (08:13)
[2017-07-31] MEDS: Lactobacillus Acidophilus/Lactobacillus Sporogenes (Probiotic) Tab PO SCH (08:13)
[2017-07-31] MEDS: Furosemide 20 MG Tab PO SCH (08:13)
[2017-07-31] MEDS: Aluminum Hydroxide/Magnesium Hydroxide/Simethicone Susp 30 ML Cup PO SCH ×2 (08:14→17:22)
[2017-07-31] MEDS: risperiDONE 1 MG Tab PO SCH ×2 (08:14→20:37)
[2017-07-31] MEDS: Sertraline 50 MG Tab PO SCH (08:14)
[2017-07-31] MEDS: Pantoprazole 40 MG Tab.CR PO SCH (08:14)
[2017-07-31] MEDS: Sulfamethoxazole/Trimethoprim 800-160 MG Tab PO SCH ×2 (08:14→20:09)
[2017-07-31] MEDS: Aspirin/Dipyridamole 200-25 MG Cap.ER PO SCH ×2 (08:14→20:09)
[2017-07-31] MEDS: Cyclobenzaprine 10 MG Tab PO PRN (11:41)
[2017-07-31] MEDS: Acetaminophen/HYDROcodone 325-5 MG Tab PO SCH (13:16)
[2017-07-31] MEDS ORDERED: fentaNYL 12 MCG/HR Transdermal Patch TRDERM SCH (13:30)
[2017-07-31] MEDS: atorvaSTATin 20 MG Tab PO SCH (20:07)
[2017-07-31] MEDS: Finasteride 5 MG Tab PO SCH (20:09)
[2017-07-31] MEDS: Insulin Detemir 100 Units/ML 3 ML Pen SUBCUT SCH (20:39)
[2017-08-01] MEDS: Pantoprazole 40 MG Tab.CR PO SCH (06:47)
[2017-08-01] MEDS: Lactobacillus Acidophilus/Lactobacillus Sporogenes (Probiotic) Tab PO SCH (08:04)
[2017-08-01] MEDS: Gabapentin 300 MG Cap PO SCH (08:04)
[2017-08-01] MEDS: Aluminum Hydroxide/Magnesium Hydroxide/Simethicone Susp 30 ML Cup PO SCH (08:04)
[2017-08-01] MEDS: Furosemide 20 MG Tab PO SCH (08:04)
[2017-08-01] MEDS: Aspirin/Dipyridamole 200-25 MG Cap.ER PO SCH (08:04)
[2017-08-01] MEDS: Ferrous Sulfate 325 MG Tab PO SCH (08:04)
[2017-08-01] MEDS: Multivitamin, Childrens Tab.Chew PO SCH (08:04)
[2017-08-01] MEDS: Sertraline 50 MG Tab PO SCH (08:05)
[2017-08-01] MEDS: Sulfamethoxazole/Trimethoprim 800-160 MG Tab PO SCH (08:05)
[2017-08-01] MEDS: risperiDONE 1 MG Tab PO SCH (08:05)
[2017-08-01] MEDS: Acetaminophen 325 MG Tab PO PRN (08:50)
[2017-08-01] MEDS: Acetaminophen/HYDROcodone 325-10 MG Tab PO PRN (08:53)
[2017-08-01] MEDS: Acetaminophen/HYDROcodone 325-5 MG Tab PO SCH (11:16)
[2017-08-01] MEDS: Cyclobenzaprine 10 MG Tab PO PRN (11:16)
[2017-08-01 13:09] VITALS: BP 123/57
--- NOTE | 2017-08-01 14:06 | PN ---
DATE OF VISIT: He was switched from swing bed status today to acute care because of becoming anemic. Hemoglobin today is 6.1. Arrangements are being made to transfuse 2 units of RBCs, and we will do a followup CBC tomorrow morning. I did consult with Dr. Hinson, hospitalist at [facility], who assisted with the details for the blood transfusion. The patient currently has no signs of infection. Intake of both food and liquids has been good today. He states that he feels tired, otherwise feels fine. He is not coughing. No problems with shortness of breath or wheezing. CRS/MODL /[id number]
[2017-08-01] MEDS ORDERED: Cyclobenzaprine 10 MG Tab PO SCH (17:00)
== END 2017-08-01 13:25 | disposition critical access hospital (66) | DRG 948 ==
LOC: UNDOADMIN 14:48 → LB.MS 14:48 → UNDOADMIN 16:22 → LB.MS 16:22
PROVIDERS: ADMIT Family Medicine; ATTEND Family Medicine
DX: R53.1 Weakness (principal); I69.951 Hemiplegia and hemiparesis following unspecified cerebrovascular disease affecting right dominant side; Z98.890 Other specified postprocedural states; Z89.519 Acquired absence of unspecified leg below knee; E11.51 Type 2 diabetes mellitus with diabetic peripheral angiopathy without gangrene; Z79.4 Long term (current) use of insulin; L89.151 Pressure ulcer of sacral region, stage 1; I69.998 Other sequelae following unspecified cerebrovascular disease; F32.9 Major depressive disorder, single episode, unspecified; S42.009A Fracture of unspecified part of unspecified clavicle, initial encounter for closed fracture; E78.00 Pure hypercholesterolemia, unspecified; H91.90 Unspecified hearing loss, unspecified ear; Z79.82 Long term (current) use of aspirin; D64.9 Anemia, unspecified
CPT/HCPCS: 36415; 51702; 73030-RT; 80048; 81001; 82962; 85025; 86580; 97110-GP; 97140-GO; 97140-GP; 97161-GP; 97162-GP; 97165-GO; 97530-GP; A9270-GY

== ENCOUNTER 2017-08-01 13:25 | Inpatient (IN) | payer MEDICARE, OTHER, MEDICAID ==
--- NOTE | 2017-08-01 14:29 | PN ---
DATE OF VISIT: 08/01/2017 HISTORY OF PRESENT ILLNESS: This patient has been feeling more weak and has been jumpy or having twitches that are sometimes quite strong. His expressed concern about these symptoms today. The patient is status post [id number] amputation of the right lower leg which I believe was about 9 days ago. The patient was running a low-grade temperature earlier today which seems to have resolved. Appetite and fluid intake have been good per Nursing statement. The patient is on pain medications. Upon entering the room today, he denies any significant pain, but the patient tells me he does not feel real well, he feels tired. Vital signs today most recently show a blood pressure of 123/57, O2 saturations are 99%, pulse is 90. PHYSICAL EXAMINATION: Examining the patient's right leg reveals a dressing is in place. It is dry. The skin above the dressing is intact without any redness or swelling. There is no tenderness with palpation of the distal end of the leg. I did not palpate his amputation site. LAB AND X-RAY: CBC today shows a hemoglobin of 6.1. Most recent hemoglobin was 7 on July 26, 2017. NEW DIAGNOSIS: Anemia, slowly worsening. TREATMENT PLAN: 1. At this point, I consulted with Dr. Dm Hinson, hospitalist at [facility]. 2. The patient will be transferred to inpatient status. 3. He will be given 2 units of RBCs, and we will recheck a CBC tomorrow morning. CRS/MODL /[id number]
[2017-08-01] MEDS ORDERED: Acetaminophen 325 MG Tab PO PRN (15:57)
[2017-08-01] MEDS ORDERED: fentaNYL 12 MCG/HR Transdermal Patch TRDERM SCH (16:00)
[2017-08-01] MEDS ORDERED: Acetaminophen/HYDROcodone 325-10 MG Tab PO PRN (16:05)
[2017-08-01] MEDS ORDERED: Sodium Chloride 0.9% 10 ML Syringe FLUSH PRN (16:18)
[2017-08-01] MEDS ORDERED: Sodium Chloride 0.9% 1,000 ML IV SCH (16:30)
[2017-08-01] MEDS: Cyclobenzaprine 10 MG Tab PO SCH (19:58)
[2017-08-01] MEDS: Sulfamethoxazole/Trimethoprim 800-160 MG Tab PO SCH (19:59)
[2017-08-01] MEDS: Aspirin/Dipyridamole 200-25 MG Cap.ER PO SCH (19:59)
[2017-08-01] MEDS ORDERED: Furosemide 20 MG/2 ML VIAL IVPUSH ONE (20:00)
[2017-08-01] MEDS ORDERED: atorvaSTATin 20 MG Tab PO SCH (20:00)
[2017-08-01] MEDS: Aluminum Hydroxide/Magnesium Hydroxide/Simethicone Susp 30 ML Cup PO SCH (20:02)
[2017-08-01] MEDS: diphenhydrAMINE 50 MG Cap PO PRN (20:02)
[2017-08-01] MEDS ORDERED: Furosemide 20 MG/2 ML VIAL ONE (20:04)
[2017-08-01] MEDS: Insulin Detemir 100 Units/ML 3 ML Pen SUBCUT SCH (20:42)
[2017-08-02] MEDS: diphenhydrAMINE 50 MG Cap PO PRN (02:13)
[2017-08-02] MEDS ORDERED: Lidocaine 2% Jelly 5 ML Urojet ONE (04:22)
[2017-08-02] MEDS ORDERED: Lidocaine 2% Jelly 10 ML Urojet MUCMEM ONE (04:23)
[2017-08-02] MEDS: Cyclobenzaprine 10 MG Tab PO SCH (07:44)
[2017-08-02] MEDS: Aspirin/Dipyridamole 200-25 MG Cap.ER PO SCH (07:44)
[2017-08-02] MEDS: Sulfamethoxazole/Trimethoprim 800-160 MG Tab PO SCH (07:45)
[2017-08-02] MEDS: Aluminum Hydroxide/Magnesium Hydroxide/Simethicone Susp 30 ML Cup PO SCH (07:45)
[2017-08-02] MEDS ORDERED: Furosemide 20 MG Tab PO SCH (08:00)
[2017-08-02] MEDS: Insulin Detemir 100 Units/ML 3 ML Pen SUBCUT SCH (08:14)
--- NOTE | 2017-08-02 09:05 | PN ---
DATE OF VISIT: SUBJECTIVE: The patient was switched from swing bed to acute care yesterday because he became anemic with a hemoglobin of 6, 2 units of RBCs were transfused yesterday afternoon and evening, we did give 20 mg of Lasix between units of blood. The patient tolerated this well. He is resting quietly this morning. Nursing staff reports that the twitching that he has been having and jerking movements have improved, but still seemed to be present part of the time. OBJECTIVE: VITAL SIGNS: Vital signs this morning are normal. He is afebrile, blood pressure 127/65, respirations 18, O2 sats 94%. GENERAL: Upon entering the room, the patient was sleeping quietly, he awoke easily with verbal stimuli. The patient has better color in his face today, he states that he feels good today. LUNGS: Clear. I examined the amputation site just above the dressing and skin is not swollen or red. There is no tenderness with palpation of this area. I did not notice any twitching or jerking movements while visiting the patient this morning. He will be monitored today. Hemoglobin has jumped nicely to 10.2 this morning. The patient remained stable. I will expect that he would return to swing bed status tomorrow. HAYDE/MODL /[id number]
[2017-08-02] MEDS ORDERED: Nystatin Topical Powder 15 GM Bottle ONE (10:50)
[2017-08-02] MEDS ORDERED: Acetaminophen/HYDROcodone 325-5 MG Tab PO SCH (11:00)
[2017-08-02 13:04] VITALS: BP 135/69
[2017-08-02] MEDS ORDERED: Nystatin Topical Powder 15 GM Bottle TOP SCH (14:00)
[2017-08-03] MEDS ORDERED: fentaNYL 12 MCG/HR Transdermal Patch TRDERM SCH ×2 (12:00→16:00)
--- NOTE | 2017-08-16 10:29 | DISCH ---
This gentleman receive 2 units of packed RBCs yesterday for hemoglobin just over 6, and it brought his hemoglobin up to just over 10. The patient is feeling fine today, not as fatigued, and vital signs were stable this morning. At this point, the patient will be discharged from acute care transferring back to swing bed status. HAYDE/ESTRELLA /[id number]
== END 2017-08-02 13:00 | disposition swing bed (61) | DRG 812 ==
LOC: LB.MS 13:25
PROVIDERS: ADMIT Physician Assistant; ATTEND Physician Assistant
PROC: 30233N1 Transfusion of Nonautologous Red Blood Cells into Peripheral Vein, Percutaneous Approach (ICD-10-PCS; principal; 2017-08-01)
DX: D64.9 Anemia, unspecified (principal); Z89.519 Acquired absence of unspecified leg below knee; Z98.890 Other specified postprocedural states
CPT/HCPCS: 36415; 36430; 82962; 85025; 86850; 86900; 86901; 86920; 86922; 87070; 87186; 87205; A9270-GY; J1940; P9016

== ENCOUNTER 2017-08-02 11:37 | Inpatient (IN) | payer MEDICARE, OTHER, MEDICAID ==
[2017-08-02] MEDS ORDERED: Tuberculin, PPD 5 Units/0.1 ML 1 ML MDV IDERM ONE (11:51)
[2017-08-02] MEDS ORDERED: Non-Formulary Medication 1 Each (Loperamide Hcl [Imodium A-D] 2 MG) PO PRN (11:51)
[2017-08-02] MEDS ORDERED: Non-Formulary Medication 1 Each (Meclizine Hcl [Meclizine Hcl] 25 MG) PO PRN (11:51)
[2017-08-02] MEDS: Cyclobenzaprine 10 MG Tab PO SCH ×2 (13:39→20:32)
[2017-08-02] MEDS: Acetaminophen 325 MG Tab PO PRN (13:39)
[2017-08-02] MEDS ORDERED: Loperamide 2 MG Cap PO PRN (14:00)
[2017-08-02] MEDS: fentaNYL 12 MCG/HR Transdermal Patch TRDERM SCH ×2 (14:25→14:26)
[2017-08-02] MEDS: Gabapentin 300 MG Cap PO SCH ×2 (14:42→20:32)
--- NOTE | 2017-08-02 15:58 | PCM.HP ---
H&P History of Present Illness - General Date of Service: 08/02/17 Admit Problem/Dx: Admission Diagnosis/Problem Admission Diagnosis/Problem Weakness Source of Information: Alf Records, Old Records History Limitations: Reports: No Limitations - History of Present Illness Initial Comments - Free Text/Narative: This is a 76yo M with history of prior CVA and hemiparesis admitted to swing bed for post right below knee amputation. Patient had a necrotic right second toe with non-healing ulceration and diagnosed peripheral arterial disease and Diabetic neuropathy. This has been an on going issue for the past year which resulted the amputation. He is here for post-op care and monitoring. Onset of Symptoms: Reports: Gradual Duration of Symptoms: Reports: Chronic Location: Reports: Lower Extremity, Right Right Clavicle Pain Score (Numeric/FACES): 5 Sacral Pain Score (Numeric/FACES): 10 - Related Data Allergies/Adverse Reactions: Allergies Allergy/AdvReac Type Severity Reaction Status Date / Time No Known Allergies Allergy Verified 08/02/17 19:15 Home Medications: Home Meds Acetaminophen [Tylenol] 650 mg PO Q6H PRN 09/21/16 [History] Acetaminophen/HYDROcodone [[place] 325-5 MG] 1 - 2 tab PO Q6HR PRN 09/21/16 [ History] Alum Hydrox/Mag Hydrox/Simeth [Maalox Advanced] 30 ml PO BIDMEALS 09/21/16 [ History] Aspirin/Dipyridamole [Aggrenox 200-25 MG] 1 cap PO BID 09/21/16 [History] Ferrous Sulfate 325 mg PO BIDMEALS 09/21/16 [History] Finasteride [Proscar] 5 mg PO QPM 09/21/16 [History] Furosemide [Lasix] 20 mg PO DAILY 09/21/16 [History] Gabapentin [Neurontin] 300 mg PO TID 09/21/16 [History] Insulin Glarg,Human.Rec.Analog [Lantus Solostar] 24 unit SUBCUT QPM 09/21/16 [ History] L.acidoph,Paracasei, B.lactis [Probiotic] 1 each PO DAILY 09/21/16 [History] Loperamide HCl [Imodium A-D] 2 mg PO Q2H PRN 09/21/16 [History] Meclizine HCl 25 mg PO DAILY PRN 09/21/16 [History] Multivitamins [Childrens Chewable Vitamin] 1 tab PO DAILY 09/21/16 [History] Pantoprazole [ProTONIX] 40 mg PO ACBREAKFAST 09/21/16 [History] Sertraline [Zoloft] 50 mg PO DAILY 09/21/16 [History] Spironolactone [Aldactone] 12.5 mg PO Q48H 09/21/16 [History] atorvaSTATin [Lipitor] 20 mg PO BEDTIME 09/21/16 [History] diphenhydrAMINE [Benadryl] 50 mg PO Q6H PRN 09/21/16 [History] risperiDONE [RisperiDAL] 0.5 mg PO BID 09/21/16 [History] Acetaminophen/HYDROcodone [[place] 325-5 MG] 1 tab PO DAILY@1100 10/01/16 [History ] Meclizine HCl 25 mg PO DAILY 10/01/16 [History] Cyclobenzaprine [Flexeril] 10 mg PO TID 08/01/17 [History] Sulfamethoxazole/Trimethoprim [Bactrim Ds Tablet] 1 each PO BID 08/01/17 [ History] fentaNYL [Duragesic] 12 mcg TD Q72H 08/01/17 [History] Past Medical History HEENT History: Reports: Hard of Hearing, Sinusitis, Other (See Below) Other HEENT History: Wears glasses Cardiovascular History: Reports: CAD, High Cholesterol, Hypertension, Other ( See Below) Other Cardiovascular History: CHF Gastrointestinal History: Reports: Fecal Incontinence, Other (See Below) Other Gastrointestinal History: Esophagitis Reflux Genitourinary History: Reports: Prostate Disorder Musculoskeletal History: Reports: Amputation, Back Pain, Chronic, Gout Other Musculoskeletal History: R BKA Neurological History: Reports: CVA Psychiatric History: Reports: Depression Endocrine/Metabolic History: Reports: Diabetes, Type II Hematologic History: Reports: Other (See Below) Other Hematologic History: 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 Dermatologic History: Reports: Cellulitis - Past Surgical History Cardiovascular Surgical History: Reports: Other (See Below) Other Cardiovascular Surgeries/Procedures: CABG Endocrine Surgical History: Reports: None Neurological Surgical History: Reports: None Musculoskeletal Surgical History: Reports: Amputation Social & Family History - Family History Family Medical History: Noncontributory - Tobacco Use Smoking Status *Q: Never Smoker - Caffeine Use Caffeine Use: Reports: Soda - Recreational Drug Use Recreational Drug Use: No H&P Review of Systems - Review of Systems: Review Of Systems: ROS reveals no pertinent complaints other than HPI. Exam - Exam Exam: See Below - Vital Signs Vital Signs: Last Vital Signs Temp 36.6 C 08/02/17 13:09 Pulse 81 08/02/17 13:09 Resp 18 08/02/17 13:09 BP 135/69 08/02/17 13:09 Pulse Ox 97 08/02/17 13:09 - Exam Quality Assessment: Supplemental Oxygen General: Alert, Oriented, Cooperative HEENT: PERRLA, Conjunctiva Clear Neck: Supple, Trachea Midline Lungs: Clear to Auscultation, Normal Respiratory Effort Cardiovascular: Regular Rate, Regular Rhythm GI/Abdominal Exam: Normal Bowel Sounds - Patient Data Result Diagrams: 08/11/17 09:00 08/11/17 09:00 *Q Meaningful Use (ADM) - VTE *Q VTE Criteria *Q: - Stroke *Q Stroke Criteria *Q: - AMI *Q AMI Criteria *Q: - Problem List (1) Below knee amputation status SNOMED Code(s): 740759271 ICD Code: Z89.519 - ACQUIRED ABSENCE OF UNSPECIFIED LEG BELOW KNEE Status: Acute Current Visit: No (2) Cellulitis of toe of right foot SNOMED Code(s): 10131534 ICD Code: L03.031 - CELLULITIS OF RIGHT TOE Status: Acute Priority: High Current Visit: No (3) Diabetes SNOMED Code(s): 83749450 ICD Code: E11.9 - TYPE 2 DIABETES MELLITUS WITHOUT COMPLICATIONS Status: Chronic Priority: High Current Visit: No (4) 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 SNOMED Code(s): 06282407 ICD Code: I69.359 - HEMIPLGA FOLLOWING CEREBRAL INFARCTION AFFECTING UNSP SIDE Status: Chronic Priority: Medium Current Visit: No (5) History of CVA (cerebrovascular accident) SNOMED Code(s): 537939328 ICD Code: Z86.73 - PRSNL HX OF TIA (TIA), AND CEREB INFRC W/O RESID DEFICITS Status: Chronic Priority: Medium Current Visit: No Problem List Initiated/Reviewed/Updated: Yes Orders Last 24hrs: Active Orders 24 hr Category Date Time Status Patient Status [ADT] Routine ADT 08/02/17 11:51 Active Consult to Lan/Wan Engineer [CONS] Routine Cons 08/02/17 11:51 Active Consult to Home Health [CONS] Routine Cons 08/02/17 11:51 Active Consult to Cloth Winder Machine Operator [CONS] Routine Cons 08/02/17 11:51 Active Consult to Wound Care Services [CONS] Routine Cons 08/02/17 11:51 Active OT Evaluation and Treatment [CONS] Routine Cons 08/02/17 11:51 Active PT Evaluation and Treatment [CONS] Routine Cons 08/02/17 11:51 Active Acetaminophen [Tylenol] Med 08/02/17 11:51 Active 650 mg PO Q6H PRN Acetaminophen/HYDROcodone [[place] 325-5 MG] Med 08/02/17 11:51 Active 1 - 2 tab PO Q6HR PRN Acetaminophen/HYDROcodone [[place] 325-5 MG] Med 08/03/17 11:00 Active 1 tab PO DAILY@1100 Acidophilus/Lactobac Spor [Acidolphilus Extra Strength] Med 08/03/17 12:00 Active 1 tab PO DAILY@1200 Alum Hydrox/Mag Hydrox/Simeth [Mag-Al Plus] Med 08/02/17 17:00 Active 30 ml PO BIDMEALS Aspirin/Dipyridamole [Aggrenox 200-25 MG] Med 08/02/17 20:00 Active 1 cap PO BID Cyclobenzaprine [Flexeril] Med 08/02/17 14:00 Active 10 mg PO TID Ferrous Sulfate Med 08/02/17 17:00 Active 325 mg PO BIDMEALS Finasteride [Proscar] Med 08/02/17 20:00 Active 5 mg PO QPM Furosemide [Lasix] Med 08/03/17 08:00 Active 20 mg PO DAILY Gabapentin [Neurontin] Med 08/02/17 14:00 Active 300 mg PO TID Insulin Detemir [Levemir] Med 08/02/17 20:00 Active 24 unit SUBCUT BEDTIME Loperamide [Imodium] Med 08/02/17 14:00 Active 2 mg PO Q2H PRN Meclizine [Antivert] Med 08/02/17 14:03 Active 25 mg PO DAILY PRN Meclizine [Antivert] Med 08/03/17 11:00 Active 25 mg PO DAILY@1100 Multivitamins [Childrens Chewable Vitamin] Med 08/03/17 08:00 Active 1 tab PO DAILY Pantoprazole [ProTONIX] Med 08/03/17 07:00 Active 40 mg PO ACBREAKFAST Sertraline [Zoloft] Med 08/03/17 08:00 Active 50 mg PO DAILY Spironolactone [Aldactone] Med 08/02/17 12:00 Active 12.5 mg PO Q48H Sulfamethoxazole/Trimethoprim [Septra DS] Med 08/02/17 20:00 Active 1 tab PO BID atorvaSTATin [Lipitor] Med 08/02/17 20:00 Active 20 mg PO BEDTIME diphenhydrAMINE [Benadryl] Med 08/02/17 11:51 Active 50 mg PO Q6H PRN fentaNYL [Duragesic] Med 08/02/17 12:00 Active 12 mcg TRDERM Q72H risperiDONE [RisperiDAL] Med 08/02/17 20:00 Active 0.5 mg PO BID Resuscitation Status Routine Resus Stat 08/02/17 11:51 Ordered Medication Orders Acetaminophen (Tylenol) 650 mg PO Q6H PRN PRN Reason: Pain Last Admin: 08/02/17 13:39 Dose: 650 mg Hydrocodone Bitart/Acetaminophen ([place] 325-5 Mg) 1 tab PO DAILY@1100 [facility] Hydrocodone Bitart/Acetaminophen ([place] 325-5 Mg) 1 - 2 tab PO Q6HR PRN PRN Reason: Pain Al Hydroxide/Mg Hydroxide (Mag-Al Plus) 30 ml PO BIDMEALS [facility] Atorvastatin Calcium (Lipitor) 20 mg PO BEDTIME [facility] Cyclobenzaprine HCl (Flexeril) 10 mg PO TID [facility] Last Admin: 08/02/17 13:39 Dose: 10 mg Diphenhydramine HCl (Benadryl) 50 mg PO Q6H PRN PRN Reason: Itching Dipyridamole/Aspirin (Aggrenox 200-25 Mg) 1 cap PO BID [facility] Fentanyl (Duragesic) 12 mcg TRDERM Q72H [facility] Last Admin: 08/02/17 14:26 Dose: Ferrous Sulfate (Ferrous Sulfate) 325 mg PO BIDMEALS [facility] Finasteride (Proscar) 5 mg PO QPM [facility] Furosemide (Lasix) 20 mg PO DAILY [facility] Gabapentin (Neurontin) 300 mg PO TID [facility] Last Admin: 08/02/17 14:42 Dose: 300 mg Insulin Detemir (Levemir) 24 unit SUBCUT BEDTIME [facility] Lactobacillus Acidophilus (Acidolphilus Extra Strength) 1 tab PO DAILY@1200 [facility] Stop: 08/03/17 18:00 Loperamide HCl (Imodium) 2 mg PO Q2H PRN PRN Reason: LOOSE STOOLS Meclizine HCl (Antivert) 25 mg PO DAILY@1100 [facility]RO Meclizine HCl (Antivert) 25 mg PO DAILY PRN PRN Reason: DIZZINESS Multivitamins/Minerals/Vitamin C (Childrens Chewable Vitamin) 1 tab PO DAILY [facility] Pantoprazole Sodium (Protonix) 40 mg PO ACBREAKFAST [facility] Risperidone (Risperidal) 0.5 mg PO BID [facility] Sertraline HCl (Zoloft) 50 mg PO DAILY [facility] Spironolactone (Aldactone) 12.5 mg PO Q48H [facility] Trimethoprim/Sulfamethoxazole (Septra Ds) 1 tab PO BID [facility] Stop: 08/02/17 23:59 Assessment/Plan Comment:: Patient to be admitted in Swing bed for psot-op care, and rehabilitation and wound management.
[2017-08-02] MEDS ORDERED: Aluminum Hydroxide/Magnesium Hydroxide/Simethicone 355 ML Bottle PO SCH (17:00)
[2017-08-02] MEDS: Spironolactone 25 MG Tab PO SCH (17:07)
[2017-08-02] MEDS: Aluminum Hydroxide/Magnesium Hydroxide/Simethicone Susp 30 ML Cup PO SCH (17:08)
[2017-08-02] MEDS: Ferrous Sulfate 325 MG Tab PO SCH (17:08)
[2017-08-02] MEDS ORDERED: Sulfamethoxazole/Trimethoprim 800-160 MG Tab PO SCH (20:00)
[2017-08-02] MEDS ORDERED: RISPERIDONE 0.5 MG PO SCH (20:00)
[2017-08-02] MEDS ORDERED: Insulin Glargine,Human Rec. Analog 100 Units/ML 3 ML Pen SUBCUT SCH (20:00)
[2017-08-02] MEDS: atorvaSTATin 20 MG Tab PO SCH (20:32)
[2017-08-02] MEDS: Finasteride 5 MG Tab PO SCH (20:32)
[2017-08-02] MEDS: Aspirin/Dipyridamole 200-25 MG Cap.ER PO SCH (20:32)
[2017-08-02] MEDS: risperiDONE 1 MG Tab PO SCH (20:33)
[2017-08-02] MEDS: Acetaminophen/HYDROcodone 325-5 MG Tab PO PRN (20:33)
[2017-08-02] MEDS: Nystatin Topical Powder 15 GM Bottle TOP SCH (20:34)
[2017-08-02] MEDS: Insulin Detemir 100 Units/ML 3 ML Pen SUBCUT SCH (20:38)
--- NOTE | 2017-08-03 02:37 | ADMIT ---
HISTORY OF PRESENT ILLNESS: A 76-year-old male who is being discharged from acute care back to swing bed status. The patient became severely anemic yesterday and was admitted to acute care for blood transfusions. He received 2 units of RBCs and his hemoglobin responded nicely. He started out at a hemoglobin of 6 and it ended up with a hemoglobin of 10 this morning. The patient tolerated the transfusions well. He has no complaints today when entering the room, the patient tells me that he feels fine. He is being admitted to swing bed status per Dr. Sandoval who will assume care for the patient at that time. HAYDE/ESTRELLA /[id number]
[2017-08-03] MEDS: Pantoprazole 40 MG Tab.CR PO SCH (06:58)
[2017-08-03] MEDS: Gabapentin 300 MG Cap PO SCH ×3 (07:50→20:41)
[2017-08-03] MEDS: Aspirin/Dipyridamole 200-25 MG Cap.ER PO SCH ×2 (07:50→20:41)
[2017-08-03] MEDS: Aluminum Hydroxide/Magnesium Hydroxide/Simethicone Susp 30 ML Cup PO SCH ×2 (07:51→16:46)
[2017-08-03] MEDS: Ferrous Sulfate 325 MG Tab PO SCH ×2 (07:51→16:46)
[2017-08-03] MEDS: Sertraline 50 MG Tab PO SCH (07:51)
[2017-08-03] MEDS: Cyclobenzaprine 10 MG Tab PO SCH ×3 (07:51→20:41)
[2017-08-03] MEDS: Furosemide 20 MG Tab PO SCH (07:51)
[2017-08-03] MEDS: Multivitamin, Childrens Tab.Chew PO SCH (07:51)
[2017-08-03] MEDS: risperiDONE 1 MG Tab PO SCH ×2 (07:51→20:30)
[2017-08-03] MEDS ORDERED: Non-Formulary Medication 1 Each (Meclizine Hcl [Meclizine Hcl] 25 MG) PO SCH (08:00)
[2017-08-03] MEDS ORDERED: Sertraline 50 MG Tab PO SCH (08:00)
[2017-08-03] MEDS ORDERED: Non-Formulary Medication 1 Each (L.Acidoph,Paracasei, B.Lactis [Probiotic] 1 EACH) PO SCH (08:00)
[2017-08-03] MEDS: Nystatin Topical Powder 15 GM Bottle TOP SCH ×3 (08:04→20:42)
[2017-08-03] MEDS ORDERED: Lactobacillus Acidophilus/Lactobacillus Sporogenes (Probiotic) Tab PO SCH (12:00)
[2017-08-03] MEDS: Acetaminophen/HYDROcodone 325-5 MG Tab PO SCH (12:35)
[2017-08-03] MEDS: Acetaminophen 325 MG Tab PO PRN (16:45)
[2017-08-03] MEDS: Insulin Detemir 100 Units/ML 3 ML Pen SUBCUT SCH (20:37)
[2017-08-03] MEDS: Acetaminophen/HYDROcodone 325-5 MG Tab PO PRN (20:41)
[2017-08-03] MEDS: atorvaSTATin 20 MG Tab PO SCH (20:42)
[2017-08-03] MEDS: Finasteride 5 MG Tab PO SCH (20:42)
[2017-08-04] MEDS: Acetaminophen/HYDROcodone 325-5 MG Tab PO PRN ×3 (06:06→19:38)
[2017-08-04] MEDS: Pantoprazole 40 MG Tab.CR PO SCH (06:06)
[2017-08-04] MEDS: Aluminum Hydroxide/Magnesium Hydroxide/Simethicone Susp 30 ML Cup PO SCH ×2 (08:32→17:46)
[2017-08-04] MEDS: Furosemide 20 MG Tab PO SCH (08:32)
[2017-08-04] MEDS: risperiDONE 1 MG Tab PO SCH ×2 (08:33→19:36)
[2017-08-04] MEDS: Gabapentin 300 MG Cap PO SCH ×3 (08:33→19:37)
[2017-08-04] MEDS: Sertraline 50 MG Tab PO SCH (08:34)
[2017-08-04] MEDS: Ferrous Sulfate 325 MG Tab PO SCH ×2 (08:34→17:46)
[2017-08-04] MEDS: Cyclobenzaprine 10 MG Tab PO SCH ×3 (08:34→19:37)
[2017-08-04] MEDS: Multivitamin, Childrens Tab.Chew PO SCH (08:35)
[2017-08-04] MEDS: Nystatin Topical Powder 15 GM Bottle TOP SCH ×3 (08:35→19:40)
[2017-08-04] MEDS: Aspirin/Dipyridamole 200-25 MG Cap.ER PO SCH ×2 (08:35→19:37)
[2017-08-04] MEDS: Acetaminophen/HYDROcodone 325-5 MG Tab PO SCH (10:53)
[2017-08-04] MEDS: Spironolactone 25 MG Tab PO SCH (14:41)
[2017-08-04] MEDS: atorvaSTATin 20 MG Tab PO SCH (19:37)
[2017-08-04] MEDS: Finasteride 5 MG Tab PO SCH (19:37)
[2017-08-04] MEDS: Insulin Detemir 100 Units/ML 3 ML Pen SUBCUT SCH (19:44)
[2017-08-05] MEDS: Acetaminophen/HYDROcodone 325-5 MG Tab PO PRN ×3 (05:02→19:33)
[2017-08-05] MEDS: Pantoprazole 40 MG Tab.CR PO SCH (06:39)
[2017-08-05] MEDS: risperiDONE 1 MG Tab PO SCH ×2 (07:29→19:34)
[2017-08-05] MEDS: Ferrous Sulfate 325 MG Tab PO SCH ×2 (07:29→18:32)
[2017-08-05] MEDS: Multivitamin, Childrens Tab.Chew PO SCH (07:29)
[2017-08-05] MEDS: Gabapentin 300 MG Cap PO SCH ×3 (07:29→19:32)
[2017-08-05] MEDS: Cyclobenzaprine 10 MG Tab PO SCH ×3 (07:29→19:32)
[2017-08-05] MEDS: Aluminum Hydroxide/Magnesium Hydroxide/Simethicone Susp 30 ML Cup PO SCH ×2 (07:30→18:32)
[2017-08-05] MEDS: Sertraline 50 MG Tab PO SCH (07:30)
[2017-08-05] MEDS: Aspirin/Dipyridamole 200-25 MG Cap.ER PO SCH ×2 (07:30→19:35)
[2017-08-05] MEDS: Furosemide 20 MG Tab PO SCH (07:30)
[2017-08-05] MEDS: Nystatin Topical Powder 15 GM Bottle TOP SCH ×3 (07:33→19:45)
[2017-08-05] MEDS: Acetaminophen/HYDROcodone 325-5 MG Tab PO SCH (10:28)
[2017-08-05] MEDS: fentaNYL 12 MCG/HR Transdermal Patch TRDERM SCH ×2 (10:29→18:27)
[2017-08-05] MEDS: Amoxicillin/Clavulanate K 875-125 MG Tab PO SCH ×2 (19:33→19:53)
[2017-08-05] MEDS: atorvaSTATin 20 MG Tab PO SCH (19:34)
[2017-08-05] MEDS: Finasteride 5 MG Tab PO SCH (19:34)
[2017-08-05] MEDS: Insulin Detemir 100 Units/ML 3 ML Pen SUBCUT SCH (19:37)
[2017-08-05] MEDS: diphenhydrAMINE 50 MG Cap PO PRN (21:55)
[2017-08-06] MEDS: Aluminum Hydroxide/Magnesium Hydroxide/Simethicone Susp 30 ML Cup PO SCH ×2 (07:56→17:12)
[2017-08-06] MEDS: risperiDONE 1 MG Tab PO SCH ×2 (07:57→19:45)
[2017-08-06] MEDS: Pantoprazole 40 MG Tab.CR PO SCH (07:58)
[2017-08-06] MEDS: Sertraline 50 MG Tab PO SCH (07:58)
[2017-08-06] MEDS: Gabapentin 300 MG Cap PO SCH ×3 (07:58→19:45)
[2017-08-06] MEDS: Cyclobenzaprine 10 MG Tab PO SCH ×3 (07:59→19:46)
[2017-08-06] MEDS: Multivitamin, Childrens Tab.Chew PO SCH (07:59)
[2017-08-06] MEDS: Aspirin/Dipyridamole 200-25 MG Cap.ER PO SCH ×2 (07:59→19:45)
[2017-08-06] MEDS: Amoxicillin/Clavulanate K 875-125 MG Tab PO SCH ×2 (08:00→19:45)
[2017-08-06] MEDS: Ferrous Sulfate 325 MG Tab PO SCH ×2 (08:00→17:12)
[2017-08-06] MEDS: Furosemide 20 MG Tab PO SCH (08:00)
[2017-08-06] MEDS: Bacitracin Oint 1 GM U/D Packet TOP SCH (08:02)
--- NOTE | 2017-08-06 10:02 | PCM.PN ---
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 He is resting comfortably with no pain or concerns. PT wound care has concerns of wound site concern. Functional Status: Reports: Pain Controlled - Review of Systems General: Reports: Weakness HEENT: Reports: No Symptoms Pulmonary: Reports: No Symptoms Cardiovascular: Reports: No Symptoms Genitourinary: Reports: Frequency Musculoskeletal: Reports: No Symptoms Skin: Reports: Other (wound healing right stump) Neurological: Reports: Pre-Existing Deficit - Patient Data Vitals - Most Recent: Last Vital Signs Temp 36.2 C 08/06/17 08:00 Pulse 86 08/06/17 08:00 Resp 16 08/06/17 08:00 BP 147/86 H 08/06/17 08:00 Pulse Ox 96 08/06/17 08:00 Weight - Most Recent: 96.417 kg I&O - Last 24 Hours: Intake & Output 08/05/17 08/06/17 08/06/17 22:59 06:59 14:59 Intake Total 800 Output Total 1200 1175 Balance -400 -1175 Lab Results Last 24 Hours: Laboratory Results - last 24 hr 08/05/17 08/05/17 08/06/17 Range/Units 10:16 18:30 06:48 POC Glucose 91 149 H 86 (74-110) mg/dL Med Orders - Current: Current Medications Acetaminophen (Tylenol) 650 mg PO Q6H PRN PRN Reason: Pain Last Admin: 08/03/17 16:45 Dose: 650 mg Hydrocodone Bitart/Acetaminophen ([place] 325-5 Mg) 1 tab PO DAILY@1100 [facility] Last Admin: 08/05/17 10:28 Dose: 1 tab Hydrocodone Bitart/Acetaminophen ([place] 325-5 Mg) 1 - 2 tab PO Q6HR PRN PRN Reason: Pain Last Admin: 08/05/17 19:33 Dose: 2 tab Al Hydroxide/Mg Hydroxide (Mag-Al Plus) 30 ml PO BIDMEALS [facility] Last Admin: 08/06/17 07:56 Dose: 30 ml Amoxicillin/Clavulanate Potassium (Augmentin 875 Mg/125 Mg) 1 tab PO Q12HR [facility] Last Admin: 08/06/17 08:00 Dose: 1 tab Atorvastatin Calcium (Lipitor) 20 mg PO BEDTIME [facility] Last Admin: 08/05/17 19:34 Dose: 20 mg Bacitracin (Bacitracin Oint 1 Gm) 1 dose TOP DAILY [facility] Last Admin: 08/06/17 08:02 Dose: 1 dose Cyclobenzaprine HCl (Flexeril) 10 mg PO TID [facility] Last Admin: 08/06/17 07:59 Dose: 10 mg Diphenhydramine HCl (Benadryl) 50 mg PO Q6H PRN PRN Reason: Itching Last Admin: 08/05/17 21:55 Dose: 50 mg Dipyridamole/Aspirin (Aggrenox 200-25 Mg) 1 cap PO BID [facility] Last Admin: 08/06/17 07:59 Dose: 1 cap Fentanyl (Duragesic) 12 mcg TRDERM Q72H [facility] Last Admin: 08/05/17 18:27 Dose: Not Given Ferrous Sulfate (Ferrous Sulfate) 325 mg PO BIDMEALS [facility] Last Admin: 08/06/17 08:00 Dose: 325 mg Finasteride (Proscar) 5 mg PO QPM [facility] Last Admin: 08/05/17 19:34 Dose: 5 mg Furosemide (Lasix) 20 mg PO DAILY [facility] Last Admin: 08/06/17 08:00 Dose: 20 mg Gabapentin (Neurontin) 300 mg PO TID [facility] Last Admin: 08/06/17 07:58 Dose: 300 mg Insulin Detemir (Levemir) 24 unit SUBCUT BEDTIME [facility] Last Admin: 08/05/17 19:37 Dose: 24 units Loperamide HCl (Imodium) 2 mg PO Q2H PRN PRN Reason: LOOSE STOOLS Meclizine HCl (Antivert) 25 mg PO DAILY@1100 [facility] Last Admin: 08/05/17 10:28 Dose: 25 mg Meclizine HCl (Antivert) 25 mg PO DAILY PRN PRN Reason: DIZZINESS Multivitamins/Minerals/Vitamin C (Childrens Chewable Vitamin) 1 tab PO DAILY [facility] Last Admin: 08/06/17 07:59 Dose: 1 tab Nystatin (Nystop) 0 gm TOP TID [facility] Last Admin: 08/06/17 08:01 Dose: 1 applic Pantoprazole Sodium (Protonix) 40 mg PO ACBREAKFAST [facility] Last Admin: 08/06/17 07:58 Dose: 40 mg Risperidone (Risperidal) 0.5 mg PO BID [facility] Last Admin: 08/06/17 07:57 Dose: 0.5 mg Sertraline HCl (Zoloft) 50 mg PO DAILY [facility] Last Admin: 08/06/17 07:58 Dose: 50 mg Spironolactone (Aldactone) 12.5 mg PO Q48H [facility] Last Admin: 08/04/17 14:41 Dose: 12.5 mg Tuberculin PPD (Aplisol) 5 unit IDERM ONETIME ONE Stop: 08/13/17 10:01 Discontinued Medications Lactobacillus Acidophilus (Acidolphilus Extra Strength) 1 tab PO DAILY@1200 [facility] Stop: 08/03/17 18:00 Last Admin: 08/03/17 12:35 Dose: 1 tab Trimethoprim/Sulfamethoxazole (Septra Ds) 1 tab PO BID [facility] Stop: 08/02/17 23:59 Last Admin: 08/02/17 20:32 Dose: 1 tab Tuberculin PPD (Aplisol) 5 unit IDERM ONETIME ONE Stop: 08/02/17 11:52 Last Admin: 08/02/17 14:36 Dose: Not Given - Exam General: Alert, Oriented, Cooperative HEENT: Pupils Equal, Pupils Reactive Neck: Supple Lungs: Clear to Auscultation, Normal Respiratory Effort Cardiovascular: Regular Rate, Regular Rhythm Extremities: Other (wound site slightly erythematous with central area minimal dehiscence at middle sergo x2 (but intact sergo), minimal serosanguinous discharge, redness of this area and erythema of 4x3cm and along suture line. 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 Daily dressing changes. Bacitracin on wound daily for 10 days. Oral antibiotics for 10 days. The wound has worsened from last Saturday with new erythema along staple line and central area close to midline minor dehiscence and spreading erythema and serosanguinous discharge.
[2017-08-06] MEDS: Acetaminophen/HYDROcodone 325-5 MG Tab PO SCH (10:04)
[2017-08-06] MEDS: Nystatin Topical Powder 15 GM Bottle TOP SCH ×3 (10:10→19:46)
[2017-08-06] MEDS: Spironolactone 25 MG Tab PO SCH (12:12)
[2017-08-06] MEDS: Acetaminophen 325 MG Tab PO PRN (12:12)
[2017-08-06] MEDS: Acetaminophen/HYDROcodone 325-5 MG Tab PO PRN (17:12)
[2017-08-06] MEDS: Finasteride 5 MG Tab PO SCH (19:46)
[2017-08-06] MEDS: diphenhydrAMINE 50 MG Cap PO PRN (19:46)
[2017-08-06] MEDS: atorvaSTATin 20 MG Tab PO SCH (19:46)
[2017-08-06] MEDS: Insulin Detemir 100 Units/ML 3 ML Pen SUBCUT SCH (19:47)
[2017-08-07] MEDS: Acetaminophen/HYDROcodone 325-5 MG Tab PO PRN ×3 (01:18→20:11)
[2017-08-07] MEDS: Pantoprazole 40 MG Tab.CR PO SCH (06:52)
[2017-08-07] MEDS ORDERED: Bisacodyl 10 MG Supp RECTAL PRN (08:00)
[2017-08-07] MEDS: Aluminum Hydroxide/Magnesium Hydroxide/Simethicone Susp 30 ML Cup PO SCH ×2 (08:02→17:11)
[2017-08-07] MEDS: Ferrous Sulfate 325 MG Tab PO SCH ×2 (08:03→17:11)
[2017-08-07] MEDS: Amoxicillin/Clavulanate K 875-125 MG Tab PO SCH ×2 (08:03→20:13)
[2017-08-07] MEDS: Cyclobenzaprine 10 MG Tab PO SCH ×3 (08:03→20:13)
[2017-08-07] MEDS: Sertraline 50 MG Tab PO SCH (08:03)
[2017-08-07] MEDS: Furosemide 20 MG Tab PO SCH (08:03)
[2017-08-07] MEDS: Aspirin/Dipyridamole 200-25 MG Cap.ER PO SCH ×2 (08:04→20:12)
[2017-08-07] MEDS: Docusate Sodium 100 MG Cap PO SCH ×2 (08:04→20:13)
[2017-08-07] MEDS: Multivitamin, Childrens Tab.Chew PO SCH (08:04)
[2017-08-07] MEDS: Gabapentin 300 MG Cap PO SCH ×3 (08:04→20:13)
[2017-08-07] MEDS: risperiDONE 1 MG Tab PO SCH ×2 (08:04→20:12)
[2017-08-07] MEDS: Nystatin Topical Powder 15 GM Bottle TOP SCH ×3 (09:56→20:13)
[2017-08-07] MEDS: Acetaminophen/HYDROcodone 325-5 MG Tab PO SCH (11:38)
[2017-08-07] MEDS: Bacitracin Oint 1 GM U/D Packet TOP SCH (11:39)
[2017-08-07] MEDS: atorvaSTATin 20 MG Tab PO SCH (20:12)
[2017-08-07] MEDS: Finasteride 5 MG Tab PO SCH (20:12)
[2017-08-07] MEDS: Insulin Detemir 100 Units/ML 3 ML Pen SUBCUT SCH (20:13)
[2017-08-08] MEDS: Pantoprazole 40 MG Tab.CR PO SCH (06:49)
[2017-08-08] MEDS: Sertraline 50 MG Tab PO SCH (08:14)
[2017-08-08] MEDS: Ferrous Sulfate 325 MG Tab PO SCH ×2 (08:14→17:05)
[2017-08-08] MEDS: Docusate Sodium 100 MG Cap PO SCH ×2 (08:14→20:43)
[2017-08-08] MEDS: Aluminum Hydroxide/Magnesium Hydroxide/Simethicone Susp 30 ML Cup PO SCH ×2 (08:14→17:05)
[2017-08-08] MEDS: Furosemide 20 MG Tab PO SCH (08:14)
[2017-08-08] MEDS: Aspirin/Dipyridamole 200-25 MG Cap.ER PO SCH ×2 (08:14→20:39)
[2017-08-08] MEDS: Amoxicillin/Clavulanate K 875-125 MG Tab PO SCH ×2 (08:14→20:41)
[2017-08-08] MEDS: Gabapentin 300 MG Cap PO SCH ×3 (08:14→20:31)
[2017-08-08] MEDS: Multivitamin, Childrens Tab.Chew PO SCH (08:14)
[2017-08-08] MEDS: risperiDONE 1 MG Tab PO SCH ×2 (08:14→20:32)
[2017-08-08] MEDS: Bacitracin Oint 1 GM U/D Packet TOP SCH (08:15)
[2017-08-08] MEDS: Nystatin Topical Powder 15 GM Bottle TOP SCH ×2 (08:15→15:01)
[2017-08-08] MEDS: Cyclobenzaprine 10 MG Tab PO SCH ×3 (08:15→20:38)
[2017-08-08] MEDS: Acetaminophen/HYDROcodone 325-5 MG Tab PO SCH ×2 (12:01→20:40)
[2017-08-08] MEDS: fentaNYL 12 MCG/HR Transdermal Patch TRDERM SCH (12:02)
[2017-08-08] MEDS: Spironolactone 25 MG Tab PO SCH (12:06)
[2017-08-08] MEDS: atorvaSTATin 20 MG Tab PO SCH (20:38)
[2017-08-08] MEDS: Finasteride 5 MG Tab PO SCH (20:39)
[2017-08-08] MEDS: Sennosides 8.6 MG Tab PO SCH (20:39)
[2017-08-08] MEDS: diphenhydrAMINE 50 MG Cap PO PRN (20:39)
[2017-08-08] MEDS: Insulin Detemir 100 Units/ML 3 ML Pen SUBCUT SCH (20:53)
[2017-08-09] MEDS: Acetaminophen/HYDROcodone 325-5 MG Tab PO SCH ×2 (02:00→11:48)
[2017-08-09] MEDS: Pantoprazole 40 MG Tab.CR PO SCH (06:49)
[2017-08-09] MEDS: Aluminum Hydroxide/Magnesium Hydroxide/Simethicone Susp 30 ML Cup PO SCH ×2 (08:16→17:11)
[2017-08-09] MEDS: Aspirin/Dipyridamole 200-25 MG Cap.ER PO SCH ×2 (08:23→19:49)
[2017-08-09] MEDS: risperiDONE 1 MG Tab PO SCH ×2 (08:23→19:48)
[2017-08-09] MEDS: Docusate Sodium 100 MG Cap PO SCH ×2 (08:23→19:49)
[2017-08-09] MEDS: Bacitracin Oint 1 GM U/D Packet TOP SCH (08:23)
[2017-08-09] MEDS: Cyclobenzaprine 10 MG Tab PO SCH ×3 (08:23→19:48)
[2017-08-09] MEDS: Sertraline 50 MG Tab PO SCH (08:23)
[2017-08-09] MEDS: Amoxicillin/Clavulanate K 875-125 MG Tab PO SCH ×2 (08:23→19:49)
[2017-08-09] MEDS: Furosemide 20 MG Tab PO SCH (08:23)
[2017-08-09] MEDS: Gabapentin 300 MG Cap PO SCH ×3 (08:23→19:49)
[2017-08-09] MEDS: Ferrous Sulfate 325 MG Tab PO SCH ×2 (08:23→17:12)
[2017-08-09] MEDS: Multivitamin, Childrens Tab.Chew PO SCH (08:23)
[2017-08-09] MEDS: Nystatin Topical Powder 15 GM Bottle TOP SCH ×4 (08:31→19:49)
[2017-08-09] MEDS ORDERED: Magnesium Hydroxide 400 MG/5 ML Susp 30 ML Cup PO PRN (11:57)
[2017-08-09] MEDS: Acetaminophen/HYDROcodone 325-5 MG Tab PO PRN (17:12)
[2017-08-09] MEDS: atorvaSTATin 20 MG Tab PO SCH (19:48)
[2017-08-09] MEDS: Sennosides 8.6 MG Tab PO SCH (19:51)
[2017-08-09] MEDS: diphenhydrAMINE 50 MG Cap PO PRN (19:54)
[2017-08-09] MEDS: Finasteride 5 MG Tab PO SCH (19:54)
[2017-08-09] MEDS: Insulin Detemir 100 Units/ML 3 ML Pen SUBCUT SCH (20:10)
[2017-08-10] MEDS: Pantoprazole 40 MG Tab.CR PO SCH (06:13)
[2017-08-10] MEDS: Docusate Sodium 100 MG Cap PO SCH ×2 (08:17→19:27)
[2017-08-10] MEDS: Aspirin/Dipyridamole 200-25 MG Cap.ER PO SCH ×2 (08:17→19:27)
[2017-08-10] MEDS: risperiDONE 1 MG Tab PO SCH ×2 (08:17→19:26)
[2017-08-10] MEDS: Ferrous Sulfate 325 MG Tab PO SCH ×2 (08:17→17:51)
[2017-08-10] MEDS: Amoxicillin/Clavulanate K 875-125 MG Tab PO SCH (08:17)
[2017-08-10] MEDS: Multivitamin, Childrens Tab.Chew PO SCH (08:17)
[2017-08-10] MEDS: Furosemide 20 MG Tab PO SCH (08:17)
[2017-08-10] MEDS: Gabapentin 300 MG Cap PO SCH ×3 (08:17→19:25)
[2017-08-10] MEDS: Cyclobenzaprine 10 MG Tab PO SCH ×3 (08:17→19:26)
[2017-08-10] MEDS: Sertraline 50 MG Tab PO SCH (08:17)
[2017-08-10] MEDS: Bacitracin Oint 1 GM U/D Packet TOP SCH (08:18)
[2017-08-10] MEDS: Nystatin Topical Powder 15 GM Bottle TOP SCH ×3 (08:18→19:27)
[2017-08-10] MEDS: Aluminum Hydroxide/Magnesium Hydroxide/Simethicone Susp 30 ML Cup PO SCH ×2 (08:18→17:51)
[2017-08-10] MEDS ORDERED: Levofloxacin 750 MG Tab PO SCH (09:00)
[2017-08-10] MEDS ORDERED: Levofloxacin/Dextrose 5%-Water 750 MG in Premix Bag 1 BAG IV SCH (09:30)
[2017-08-10] MEDS ORDERED: Levofloxacin/Dextrose 5%-Water 150 ML IV ONE (09:53)
[2017-08-10] MEDS ORDERED: Sodium Chloride 0.9% 1,000 ML IV ONE (10:28)
[2017-08-10] MEDS ORDERED: Sodium Chloride 0.9% 1,000 ML IV SCH (11:30)
[2017-08-10] MEDS: Acetaminophen/HYDROcodone 325-5 MG Tab PO SCH (13:23)
[2017-08-10] MEDS: Spironolactone 25 MG Tab PO SCH (13:23)
[2017-08-10] MEDS: Piperacillin/Tazobactam 3.375 GM in Sodium Chloride 0.9% 100 ML IV SCH ×2 (13:56→19:23)
[2017-08-10] MEDS: Acetaminophen/HYDROcodone 325-5 MG Tab PO PRN (18:46)
[2017-08-10] MEDS: Sennosides 8.6 MG Tab PO SCH (19:25)
[2017-08-10] MEDS: Finasteride 5 MG Tab PO SCH (19:25)
[2017-08-10] MEDS: atorvaSTATin 20 MG Tab PO SCH (19:26)
[2017-08-10] MEDS: diphenhydrAMINE 50 MG Cap PO PRN (19:27)
[2017-08-10] MEDS: Insulin Detemir 100 Units/ML 3 ML Pen SUBCUT SCH (19:53)
[2017-08-11] MEDS: Piperacillin/Tazobactam 3.375 GM in Sodium Chloride 0.9% 100 ML IV SCH ×2 (01:25→07:25)
[2017-08-11] MEDS: Pantoprazole 40 MG Tab.CR PO SCH (06:56)
[2017-08-11] MEDS: Gabapentin 300 MG Cap PO SCH ×3 (08:16→20:53)
[2017-08-11] MEDS: Cyclobenzaprine 10 MG Tab PO SCH ×3 (08:16→20:30)
[2017-08-11] MEDS: Docusate Sodium 100 MG Cap PO SCH ×2 (08:16→20:54)
[2017-08-11] MEDS: Furosemide 20 MG Tab PO SCH (08:16)
[2017-08-11] MEDS: Aspirin/Dipyridamole 200-25 MG Cap.ER PO SCH ×2 (08:16→20:53)
[2017-08-11] MEDS: Ferrous Sulfate 325 MG Tab PO SCH ×2 (08:16→17:23)
[2017-08-11] MEDS: Multivitamin, Childrens Tab.Chew PO SCH (08:16)
[2017-08-11] MEDS: Nystatin Topical Powder 15 GM Bottle TOP SCH ×3 (08:17→20:30)
[2017-08-11] MEDS: risperiDONE 1 MG Tab PO SCH ×2 (08:17→20:53)
[2017-08-11] MEDS: Sertraline 50 MG Tab PO SCH (08:17)
[2017-08-11] MEDS: Bacitracin Oint 1 GM U/D Packet TOP SCH (08:17)
[2017-08-11] MEDS: Aluminum Hydroxide/Magnesium Hydroxide/Simethicone Susp 30 ML Cup PO SCH ×2 (08:21→16:18)
[2017-08-11] MEDS: Acetaminophen/HYDROcodone 325-5 MG Tab PO PRN (09:59)
[2017-08-11] MEDS: Acetaminophen/HYDROcodone 325-5 MG Tab PO SCH ×2 (11:30→20:54)
[2017-08-11] MEDS: fentaNYL 12 MCG/HR Transdermal Patch TRDERM SCH (11:36)
--- NOTE | 2017-08-11 13:15 | PN ---
DATE OF VISIT: 08/11/2017 The patient was diagnosed with pneumonia yesterday afternoon. Prior to this, while the CT results were pending, I did consult with the hospitalist in [place] and it was determined that per family's request we would try the patient on aggressive antibiotics for 24 hours to see how he does. He had been given Levaquin 750 mg IV yesterday. We then started Zosyn as well as vancomycin. The patient's does not want to have anything more than antibiotics given to him. She is his guardian. I spoke with her yesterday afternoon. Today, the patient is doing much better. He is awake. He is eating and drinking good. He is taking his pills. He was not able to do this yesterday due to intermittent bouts of confusion and sleepiness. The patient tells me he feels much better today. Vital signs are reviewed. He is normotensive and afebrile today. At this point, we will stop the vancomycin and Zosyn and revert back to the Levaquin, giving him 750 mg p.o. daily for seven days. This will cover both pneumonia and Pseudomonas, which grew out on a recent culture from a decubitus ulcer on the coccyx area. Later today, the patient will be reverted to Dr. Gilbert who will be taking over. CRS/MODL /[id number]
[2017-08-11] MEDS: Levofloxacin 750 MG Tab PO SCH (16:17)
--- NOTE | 2017-08-11 19:05 | CT ---
DATE OF SERVICE: 08/10/2017 CLINICAL DATA: Abdomen distention. UNENHANCED ABDOMEN AND PELVIC CT: Multislice acquisition through the abdomen and pelvis without IV or oral contrast was performed. Comparison is made to a prior exam dated 03/29/2015. Breathing motion artifact degrades image quality. There is a moderately large left pleural effusion and there is atelectasis and consolidation of the left lower lung. Pneumonia cannot be excluded. The heart size is normal. There are extensive coronary artery calcifications. No pericardial effusion. The unenhanced liver appears normal. The gallbladder contains multiple gallstones. No pericholecystic fluid. The spleen appears normal. The pancreas is atrophic. Otherwise unremarkable. The right and left adrenals appear normal. There is atrophy at both kidneys. No nephrocalcinosis or nephrolithiasis. No hydronephrosis or hydroureter. There is a large amount of stool present throughout the colon and rectum. The stomach is gas and debris filled and moderately distended. No definite evidence for obstruction or ileus. No free air. No free fluid. There is a Gilmore catheter within the bladder. No adenopathy. No aortic aneurysm. No other significant findings. IMPRESSION: Multiple findings as discussed above. [id number] MTDD
[2017-08-11] MEDS: Finasteride 5 MG Tab PO SCH (20:53)
[2017-08-11] MEDS: Sennosides 8.6 MG Tab PO SCH (20:53)
[2017-08-11] MEDS: atorvaSTATin 20 MG Tab PO SCH (20:53)
[2017-08-11] MEDS: diphenhydrAMINE 50 MG Cap PO PRN (20:54)
[2017-08-11] MEDS: Insulin Detemir 100 Units/ML 3 ML Pen SUBCUT SCH (20:56)
[2017-08-12] MEDS: Pantoprazole 40 MG Tab.CR PO SCH (06:18)
[2017-08-12] MEDS: Aspirin/Dipyridamole 200-25 MG Cap.ER PO SCH ×2 (08:36→19:56)
[2017-08-12] MEDS: Multivitamin, Childrens Tab.Chew PO SCH (08:37)
[2017-08-12] MEDS: Docusate Sodium 100 MG Cap PO SCH ×2 (08:38→19:56)
[2017-08-12] MEDS: Ferrous Sulfate 325 MG Tab PO SCH ×2 (08:38→16:20)
[2017-08-12] MEDS: Cyclobenzaprine 10 MG Tab PO SCH ×3 (08:39→19:57)
[2017-08-12] MEDS: Gabapentin 300 MG Cap PO SCH ×3 (08:40→19:57)
[2017-08-12] MEDS: Aluminum Hydroxide/Magnesium Hydroxide/Simethicone Susp 30 ML Cup PO SCH ×2 (08:40→16:19)
[2017-08-12] MEDS: Furosemide 20 MG Tab PO SCH (08:40)
[2017-08-12] MEDS: risperiDONE 1 MG Tab PO SCH ×2 (08:41→19:58)
[2017-08-12] MEDS: Sertraline 50 MG Tab PO SCH (08:42)
--- NOTE | 2017-08-12 08:48 | PN ---
DATE OF VISIT: 08/10/2017 HISTORY OF PRESENT ILLNESS: A swing bed patient who nursing staff contacted me about because of changes in the patient's status. He is having some mild episodes of confusion that are intermittent. He has started to run a low-grade temp this morning. Initial pulse this morning taken by nursing staff was 113, blood pressure 119/59. The patient has been taking Augmentin for decubitus ulcer in the coccyx area, which has improved significantly I am told. He is also status post BKA right leg, date of surgery 07/23/2017. He has been in, but on swing bed status. Labs yesterday included a CBC, which had a slightly elevated white count of 11.7, neutrophils 74.2, otherwise unremarkable. Lactic acid was 0.99. I was asked to review this patient's vitals and evaluate him today. OBJECTIVE: Upon entering the room, the patient is sleeping quietly. He does respond to verbal stimuli. He tells us that he is not feeling well. LUNGS: Exam reveals reduced air exchange. I do not hear any rales, wheezes, or rhonchi today, the patient is not taking deep breaths. ABDOMEN: Soft, protuberant, it appears distended. Bowel sounds are decreased. SKIN: Warm and dry. EXTREMITIES: Examining the patient's stump on the right leg reveals it is unchanged, it is dry, there is some duskiness along both sides of it. The wound edges are intact, held in place by sergo. I did not examine the coccyx area, but I did review the pictures that nursing staff had, and this condition has significantly improved. LABORATORY DATA: Labs today include a CBC, which is 23,700 now, neutrophils have also increased to 91.9. Lactic acid increased to 1.65, which is still normal. TREATMENT PLAN: Levaquin 750 mg was given IV. A CT of the abdomen was also ordered, which is suspicious for pneumonia and possible empyema. Moderate amount of stool within the bowel. No sign of ileus or obstruction. At this point, I did consult with the hospitalist in [place], Dr. Villagran, who informed me to have a discussion with family members if the patient wants to be treated aggressively or not. He would be happy to see the patient, if needed. This was followed by a discussion with the patient's , who informed me that they do not want aggressive measures taken. They want more conservative measures taken, which, after further discussion, she agrees to trying the patient on Zosyn and vancomycin for 24 hours to see how he responds. Therefore, this will be started. Zosyn 3.375 mg IV q.6 hours and vancomycin 1 g b.i.d. Vital signs were taken more recently with improved results. The patient's pulse drop down to 102, he is afebrile. Blood pressure remained about the same at 118/61. CRS/MODL /[id number]
[2017-08-12] MEDS: Nystatin Topical Powder 15 GM Bottle TOP SCH ×3 (09:30→20:00)
[2017-08-12] MEDS: Acetaminophen/HYDROcodone 325-5 MG Tab PO SCH (13:18)
[2017-08-12] MEDS: Spironolactone 25 MG Tab PO SCH (13:25)
[2017-08-12] MEDS: Bacitracin Oint 1 GM U/D Packet TOP SCH (16:16)
[2017-08-12] MEDS: Levofloxacin 750 MG Tab PO SCH (16:20)
[2017-08-12] MEDS: atorvaSTATin 20 MG Tab PO SCH (19:57)
[2017-08-12] MEDS: Finasteride 5 MG Tab PO SCH (19:58)
[2017-08-12] MEDS: Sennosides 8.6 MG Tab PO SCH (19:59)
[2017-08-12] MEDS: Acetaminophen/HYDROcodone 325-5 MG Tab PO PRN (20:04)
[2017-08-12] MEDS: Insulin Detemir 100 Units/ML 3 ML Pen SUBCUT SCH (20:06)
[2017-08-13] MEDS: Multivitamin, Childrens Tab.Chew PO SCH (07:51)
[2017-08-13] MEDS: Sertraline 50 MG Tab PO SCH (07:51)
[2017-08-13] MEDS: Gabapentin 300 MG Cap PO SCH ×2 (07:51→14:10)
[2017-08-13] MEDS: Ferrous Sulfate 325 MG Tab PO SCH (07:51)
[2017-08-13] MEDS: Furosemide 20 MG Tab PO SCH (07:51)
[2017-08-13] MEDS: risperiDONE 1 MG Tab PO SCH (07:51)
[2017-08-13] MEDS: Docusate Sodium 100 MG Cap PO SCH (07:51)
[2017-08-13] MEDS: Pantoprazole 40 MG Tab.CR PO SCH (07:51)
[2017-08-13] MEDS: Aspirin/Dipyridamole 200-25 MG Cap.ER PO SCH (07:51)
[2017-08-13] MEDS: Cyclobenzaprine 10 MG Tab PO SCH ×2 (07:51→14:10)
[2017-08-13] MEDS: Nystatin Topical Powder 15 GM Bottle TOP SCH ×2 (07:52→14:10)
[2017-08-13] MEDS: Bacitracin Oint 1 GM U/D Packet TOP SCH (07:56)
[2017-08-13] MEDS: Aluminum Hydroxide/Magnesium Hydroxide/Simethicone Susp 30 ML Cup PO SCH (08:17)
[2017-08-13] MEDS ORDERED: Insulin Detemir 100 Units/ML 3 ML Pen SUBCUT SCH (09:31)
--- NOTE | 2017-08-13 09:50 | PCM.DCSUM1 ---
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 SNOMED Code(s): 57497661 ICD Code: I69.359 - HEMIPLGA FOLLOWING CEREBRAL INFARCTION AFFECTING UNSP SIDE Status: Chronic Priority: Medium Current Visit: No (4) Wound infection after surgery SNOMED Code(s): 01237986 ICD Code: T81.4XXA - INFECTION FOLLOWING A PROCEDURE, INITIAL ENCOUNTER Status: Acute Priority: High Current Visit: Yes (5) Pneumonia SNOMED Code(s): 902519981 ICD Code: J18.9 - PNEUMONIA, UNSPECIFIED ORGANISM Status: Acute Current Visit: Yes - Patient Summary/Data Consults: Consultations 08/02/17 11:51 Consult to Office Services Clerk [CONS] Routine Comment: Physician Instructions: Quantity: Consult to Home Health [CONS] Routine Comment: Physician Instructions: Consult to Pattern Cutter [CONS] Routine Comment: Physician Instructions: Consult to Wound Care Services [CONS] Routine Comment: Physician Instructions: OT Evaluation and Treatment [CONS] Routine Please Evaluate and Treat. OT Reason for Consult: ADL's This query below is only for informational purposes and is not editable. Admission Diagnosis/Problem: Weakness PT Evaluation and Treatment [CONS] Routine Please Evaluate and Treat. PT Reason for Consult: Strengthening This query below is only for informational purposes and is not editable. Admission Diagnosis/Problem: Weakness - Discharge Plan Home Medications: Home Meds Acetaminophen [Tylenol] 650 mg PO Q6H PRN 09/21/16 [History] Acetaminophen/HYDROcodone [[place] 325-5 MG] 1 - 2 tab PO Q6HR PRN 09/21/16 [ History] Alum Hydrox/Mag Hydrox/Simeth [Maalox Advanced] 30 ml PO BIDMEALS 09/21/16 [ History] Aspirin/Dipyridamole [Aggrenox 200-25 MG] 1 cap PO BID 09/21/16 [History] Ferrous Sulfate 325 mg PO BIDMEALS 09/21/16 [History] Finasteride [Proscar] 5 mg PO QPM 09/21/16 [History] Furosemide [Lasix] 20 mg PO DAILY 09/21/16 [History] Gabapentin [Neurontin] 300 mg PO TID 09/21/16 [History] Insulin Glarg,Human.Rec.Analog [Lantus Solostar] 24 unit SUBCUT QPM 09/21/16 [ History] L.acidoph,Paracasei, B.lactis [Probiotic] 1 each PO DAILY 09/21/16 [History] Loperamide HCl [Imodium A-D] 2 mg PO Q2H PRN 09/21/16 [History] Meclizine HCl 25 mg PO DAILY PRN 09/21/16 [History] Multivitamins [Childrens Chewable Vitamin] 1 tab PO DAILY 09/21/16 [History] Pantoprazole [ProTONIX] 40 mg PO ACBREAKFAST 09/21/16 [History] Sertraline [Zoloft] 50 mg PO DAILY 09/21/16 [History] Spironolactone [Aldactone] 12.5 mg PO Q48H 09/21/16 [History] atorvaSTATin [Lipitor] 20 mg PO BEDTIME 09/21/16 [History] diphenhydrAMINE [Benadryl] 50 mg PO Q6H PRN 09/21/16 [History] risperiDONE [RisperiDAL] 0.5 mg PO BID 09/21/16 [History] Acetaminophen/HYDROcodone [[place] 325-5 MG] 1 tab PO DAILY@1100 10/01/16 [History ] Meclizine HCl 25 mg PO DAILY 10/01/16 [History] Cyclobenzaprine [Flexeril] 10 mg PO TID 08/01/17 [History] Sulfamethoxazole/Trimethoprim [Bactrim Ds Tablet] 1 each PO BID 08/01/17 [ History] fentaNYL [Duragesic] 12 mcg TD Q72H 08/01/17 [History] - Discharge Summary/Plan Comment Discharge Summary/Plan Comment: Admitted to [facility] for management of pneumonia and wound infection of the right lower leg amputation. - Patient Data Vitals - Most Recent: Last Vital Signs Temp 37.2 C 08/12/17 08:44 Pulse 113 H 08/12/17 08:44 Resp 15 08/12/17 08:44 BP 123/63 08/12/17 08:44 Pulse Ox 98 08/12/17 08:44 Weight - Most Recent: 96.6 kg I&O - Last 24 hours: Intake & Output 08/12/17 08/13/17 08/13/17 22:59 06:59 14:59 Intake Total 600 240 Output Total 550 450 Balance 50 -210 Lab Results - Last 24 hrs: Laboratory Results - last 24 hr 08/12/17 08/12/17 08/13/17 Range/Units 07:15 18:53 06:44 POC Glucose 57 L 139 H 49 L* (74-110) mg/dL 08/13/17 08/13/17 Range/Units 07:16 07:43 POC Glucose 56 L 64 L (74-110) mg/dL Med Orders - Current: Current Medications Acetaminophen (Tylenol) 650 mg PO Q6H PRN PRN Reason: Pain Last Admin: 08/06/17 12:12 Dose: 650 mg Hydrocodone Bitart/Acetaminophen ([place] 325-5 Mg) 1 tab PO DAILY@1100 [facility] Last Admin: 08/12/17 13:18 Dose: 1 tab Hydrocodone Bitart/Acetaminophen ([place] 325-5 Mg) 1 - 2 tab PO Q6HR PRN PRN Reason: Pain Last Admin: 08/12/17 20:04 Dose: 2 tab Al Hydroxide/Mg Hydroxide (Mag-Al Plus) 30 ml PO BIDMEALS [facility] Last Admin: 08/13/17 08:17 Dose: 30 ml Atorvastatin Calcium (Lipitor) 20 mg PO BEDTIME [facility] Last Admin: 08/12/17 19:57 Dose: 20 mg Bacitracin (Bacitracin Oint 1 Gm) 1 dose TOP DAILY [facility] Last Admin: 08/13/17 07:56 Dose: Not Given Bisacodyl (Dulcolax) 10 mg RECTAL DAILY PRN PRN Reason: Constipation Cyclobenzaprine HCl (Flexeril) 10 mg PO TID [facility] Last Admin: 08/13/17 07:51 Dose: 10 mg Diphenhydramine HCl (Benadryl) 50 mg PO Q6H PRN PRN Reason: Itching Last Admin: 08/11/17 20:54 Dose: 50 mg Dipyridamole/Aspirin (Aggrenox 200-25 Mg) 1 cap PO BID [facility] Last Admin: 08/13/17 07:51 Dose: 1 cap Docusate Sodium (Colace) 100 mg PO BID [facility] Last Admin: 08/13/17 07:51 Dose: 100 mg Fentanyl (Duragesic) 12 mcg TRDERM Q72H [facility] Last Admin: 08/11/17 11:36 Dose: 12 mcg Ferrous Sulfate (Ferrous Sulfate) 325 mg PO BIDMEALS [facility] Last Admin: 08/13/17 07:51 Dose: 325 mg Finasteride (Proscar) 5 mg PO QPM [facility] Last Admin: 08/12/17 19:58 Dose: 5 mg Furosemide (Lasix) 20 mg PO DAILY [facility] Last Admin: 08/13/17 07:51 Dose: 20 mg Gabapentin (Neurontin) 300 mg PO TID [facility] Last Admin: 08/13/17 07:51 Dose: 300 mg Insulin Detemir (Levemir) 20 unit SUBCUT BEDTIME [facility] Levofloxacin (Levaquin) 750 mg PO Q24H [facility] Stop: 08/18/17 16:01 Last Admin: 08/12/17 16:20 Dose: 750 mg Loperamide HCl (Imodium) 2 mg PO Q2H PRN PRN Reason: LOOSE STOOLS Magnesium Hydroxide (Milk Of Magnesia) 30 ml PO DAILY PRN PRN Reason: Constipation Meclizine HCl (Antivert) 25 mg PO DAILY@1100 [facility] Last Admin: 08/12/17 13:19 Dose: 25 mg Meclizine HCl (Antivert) 25 mg PO DAILY PRN PRN Reason: DIZZINESS Multivitamins/Minerals/Vitamin C (Childrens Chewable Vitamin) 1 tab PO DAILY [facility] Last Admin: 08/13/17 07:51 Dose: 1 tab Nystatin (Nystop) 0 gm TOP TID [facility] Last Admin: 08/13/17 07:52 Dose: 1 applic Pantoprazole Sodium (Protonix) 40 mg PO ACBREAKFAST [facility] Last Admin: 08/13/17 07:51 Dose: 40 mg Risperidone (Risperidal) 0.5 mg PO BID [facility] Last Admin: 08/13/17 07:51 Dose: 0.5 mg Senna (Senna) 17.2 mg PO BEDTIME [facility] Last Admin: 08/12/17 19:59 Dose: 17.2 mg Sertraline HCl (Zoloft) 50 mg PO DAILY [facility] Last Admin: 08/13/17 07:51 Dose: 50 mg Spironolactone (Aldactone) 12.5 mg PO Q48H [facility] Last Admin: 08/12/17 13:25 Dose: 12.5 mg Tuberculin PPD (Aplisol) 5 unit IDERM ONETIME ONE Stop: 08/13/17 10:01 Discontinued Medications Amoxicillin/Clavulanate Potassium (Augmentin 875 Mg/125 Mg) 1 tab PO Q12HR [facility] Last Admin: 08/10/17 08:17 Dose: 1 tab Levofloxacin/Dextrose 750 mg/ (Premix) 150 mls @ 100 mls/hr IV Q24H [facility] Last Admin: 08/10/17 09:59 Dose: 100 mls/hr Levofloxacin/Dextrose (Levaquin In D5w 750 Mg/150 Ml) Confirm Administered Dose 150 mls @ as directed IV .STK-MED ONE Stop: 08/10/17 09:54 Last Admin: 08/10/17 10:04 Dose: Not Given Sodium Chloride (Normal Saline) 1,000 mls @ 999 mls/hr IV .BOLUS ONE Stop: 08/10/17 11:28 Last Admin: 08/10/17 10:34 Dose: 999 mls/hr Vancomycin HCl 1 gm/ Sodium (Chloride) 250 mls @ 167 mls/hr IV Q12H [facility] Last Admin: 08/11/17 02:58 Dose: 167 mls/hr Piperacillin Sod/Tazobactam (Sod 3.375 gm/ Sodium Chloride) 100 mls @ 100 mls/ hr IV Q6H [facility] Last Admin: 08/11/17 07:25 Dose: 100 mls/hr Sodium Chloride (Normal Saline) 1,000 mls @ 50 mls/hr IV ASDIRECTED [facility] Last Admin: 08/10/17 11:35 Dose: 50 mls/hr Insulin Detemir (Levemir) 24 unit SUBCUT BEDTIME [facility] Last Admin: 08/12/17 20:06 Dose: 24 units Lactobacillus Acidophilus (Acidolphilus Extra Strength) 1 tab PO DAILY@1200 [facility] Stop: 08/03/17 18:00 Last Admin: 08/03/17 12:35 Dose: 1 tab Levofloxacin (Levaquin) 750 mg PO Q24H [facility] Last Admin: 08/10/17 10:33 Dose: Not Given Trimethoprim/Sulfamethoxazole (Septra Ds) 1 tab PO BID [facility] Stop: 08/02/17 23:59 Last Admin: 08/02/17 20:32 Dose: 1 tab Tuberculin PPD (Aplisol) 5 unit IDERM ONETIME ONE Stop: 08/02/17 11:52 Last Admin: 08/02/17 14:36 Dose: Not Given *Q Meaningful Use (DIS) - VTE *Q VTE Criteria *Q: - Stroke *Q Stroke Criteria *Q: - AMI *Q AMI Criteria *Q:
[2017-08-13] MEDS ORDERED: Tuberculin, PPD 5 Units/0.1 ML 1 ML MDV IDERM ONE (10:00)
[2017-08-13 11:16] VITALS: BP 129/63
[2017-08-13] MEDS: Acetaminophen/HYDROcodone 325-5 MG Tab PO SCH (11:22)
== END 2017-08-13 14:20 | disposition critical access hospital (66) | DRG 947 ==
LOC: UNDOADMIN 11:51 → LB.MS 11:51
PROVIDERS: ADMIT Family Medicine; ATTEND Family Medicine
DX: R53.1 Weakness (principal); J18.9 Pneumonia, unspecified organism; I69.359 Hemiplegia and hemiparesis following cerebral infarction affecting unspecified side; T87.81 Dehiscence of amputation stump; Z98.890 Other specified postprocedural states; Z89.511 Acquired absence of right leg below knee; L03.031 Cellulitis of right toe; E11.40 Type 2 diabetes mellitus with diabetic neuropathy, unspecified; Z79.4 Long term (current) use of insulin; E11.51 Type 2 diabetes mellitus with diabetic peripheral angiopathy without gangrene; I11.0 Hypertensive heart disease with heart failure; E78.00 Pure hypercholesterolemia, unspecified; I50.9 Heart failure, unspecified; I25.10 Atherosclerotic heart disease of native coronary artery without angina pectoris; K21.9 Gastro-esophageal reflux disease without esophagitis; M54.9 Dorsalgia, unspecified; G89.29 Other chronic pain; E61.1 Iron deficiency; Z66 Do not resuscitate; Z95.1 Presence of aortocoronary bypass graft; H91.90 Unspecified hearing loss, unspecified ear; Z79.82 Long term (current) use of aspirin; L89.159 Pressure ulcer of sacral region, unspecified stage
CPT/HCPCS: 36415; 74150; 74176; 80048; 80053; 82962; 83605; 85025; 97110-GP; 97140-GO; 97597-GP; A9270-GY; J1956; J2543; J3370; J7030; J7040; J7050

== ENCOUNTER 2017-08-13 09:48 | Inpatient (IN) | payer MEDICARE, OTHER, MEDICAID ==
--- NOTE | 2017-08-13 09:55 | PCM.HP ---
H&P History of Present Illness - General Date of Service: 08/13/17 Admit Problem/Dx: Cellulitis, Pneumonia with empyema Source of Information: Patient, Old Records History Limitations: Reports: No Limitations - History of Present Illness Initial Comments - Free Text/Narative: This is a 76yo M admitted for cellulitis of his right amputation wound and pneumonia with Empyema. He was initially placed in swing bed for rehabilitation and management of his pain and wound. He gradually developed discharge and redness of the wound with some increasing necrotic tissue of the right dogear. Patient states he does not feel sob and no right leg pain at this time. Denies any fever or chills. No chest pain. Onset of Symptoms: Reports: Gradual Duration of Symptoms: Reports: Day(s): Location: Reports: Chest, Lower Extremity, Right Generalized Pain Score (Numeric/FACES): 0 - Related Data Allergies/Adverse Reactions: Allergies Allergy/AdvReac Type Severity Reaction Status Date / Time No Known Allergies Allergy Verified 08/13/17 13:02 Home Medications: Home Meds Acetaminophen [Tylenol] 650 mg PO Q6H PRN 09/21/16 [History] Acetaminophen/HYDROcodone [[place] 325-5 MG] 1 - 2 tab PO Q6HR PRN 09/21/16 [ History] Alum Hydrox/Mag Hydrox/Simeth [Maalox Advanced] 30 ml PO BIDMEALS 09/21/16 [ History] Aspirin/Dipyridamole [Aggrenox 200-25 MG] 1 cap PO BID 09/21/16 [History] Ferrous Sulfate 325 mg PO BIDMEALS 09/21/16 [History] Finasteride [Proscar] 5 mg PO QPM 09/21/16 [History] Furosemide [Lasix] 20 mg PO DAILY 09/21/16 [History] Gabapentin [Neurontin] 300 mg PO TID 09/21/16 [History] L.acidoph,Paracasei, B.lactis [Probiotic] 1 each PO DAILY 09/21/16 [History] Loperamide HCl [Imodium A-D] 2 mg PO Q2H PRN 09/21/16 [History] Meclizine HCl 25 mg PO DAILY PRN 09/21/16 [History] Multivitamins [Childrens Chewable Vitamin] 1 tab PO DAILY 09/21/16 [History] Pantoprazole [ProTONIX] 40 mg PO ACBREAKFAST 09/21/16 [History] Sertraline [Zoloft] 50 mg PO DAILY 09/21/16 [History] Spironolactone [Aldactone] 12.5 mg PO Q48H 09/21/16 [History] atorvaSTATin [Lipitor] 20 mg PO BEDTIME 09/21/16 [History] diphenhydrAMINE [Benadryl] 50 mg PO Q6H PRN 09/21/16 [History] risperiDONE [RisperiDAL] 0.5 mg PO BID 09/21/16 [History] Acetaminophen/HYDROcodone [[place] 325-5 MG] 1 tab PO DAILY@1100 10/01/16 [History ] Meclizine HCl 25 mg PO DAILY 10/01/16 [History] Cyclobenzaprine [Flexeril] 10 mg PO TID 08/01/17 [History] fentaNYL [Duragesic] 12 mcg TD Q72H 08/01/17 [History] Docusate Sodium [Colace] 100 mg PO BID 08/13/17 [History] Insulin Detemir [Levemir] 20 unit SUBCUT BEDTIME 08/13/17 [History] Magnesium Hydroxide [Milk of Magnesia] 30 ml PO DAILY PRN 08/13/17 [History] Nystatin [Nystop] 15 gm TOP TID 08/13/17 [History] Past Medical History HEENT History: Reports: Hard of Hearing, Sinusitis, Other (See Below) Other HEENT History: Wears glasses Cardiovascular History: Reports: CAD, High Cholesterol, Hypertension, Other ( See Below) Other Cardiovascular History: CHF Gastrointestinal History: Reports: Fecal Incontinence, Other (See Below) Other Gastrointestinal History: Esophagitis Reflux Genitourinary History: Reports: Prostate Disorder Musculoskeletal History: Reports: Amputation, Back Pain, Chronic, Gout Other Musculoskeletal History: R BKA Neurological History: Reports: CVA Psychiatric History: Reports: Depression Endocrine/Metabolic History: Reports: Diabetes, Type II Hematologic History: Reports: Other (See Below) Other Hematologic History: 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 Dermatologic History: Reports: Cellulitis - Past Surgical History Cardiovascular Surgical History: Reports: Other (See Below) Other Cardiovascular Surgeries/Procedures: CABG Endocrine Surgical History: Reports: None Neurological Surgical History: Reports: None Musculoskeletal Surgical History: Reports: Amputation Social & Family History - Family History Family Medical History: Noncontributory - Tobacco Use Smoking Status *Q: Never Smoker Second Hand Smoke Exposure: No - Caffeine Use Caffeine Use: Reports: Soda - Recreational Drug Use Recreational Drug Use: No H&P Review of Systems - Review of Systems: Review Of Systems: ROS reveals no pertinent complaints other than HPI. Exam - Exam Exam: See Below - Exam General: Alert, Oriented, Cooperative HEENT: PERRLA, Conjunctiva Clear Neck: Supple, Trachea Midline Lungs: Normal Respiratory Effort, Rales, Rhonchi Cardiovascular: Regular Rate, Regular Rhythm GI/Abdominal Exam: Normal Bowel Sounds Extremities: Redness, Other (Right lower below knee amputation) Skin: Wound, Incision, Other (irritation around incision site) - Patient Data Result Diagrams: 08/15/17 07:25 08/15/17 07:25 *Q Meaningful Use (ADM) - VTE *Q VTE Criteria *Q: - Stroke *Q Stroke Criteria *Q: - AMI *Q AMI Criteria *Q: Problem List Initiated/Reviewed/Updated: Yes Assessment/Plan Comment:: Discussion with and patient and we will admit for IV antibiotics and wound care. Discussed pneumonia and the possibility of transfer as needed. At this time patient and would like to try IV antibiotics and measure here at the hospital and monitor for further eval prior to consideration of transfer. We will start Zosyn and continue oral levaquin and wound care daily. F/u labs and CXR in AM.
[2017-08-13] MEDS ORDERED: Magnesium Hydroxide 400 MG/5 ML Susp 30 ML Cup PO PRN (14:35)
[2017-08-13] MEDS ORDERED: Non-Formulary Medication 1 Each (Loperamide Hcl [Imodium A-D] 2 MG) PO PRN (14:35)
[2017-08-13] MEDS ORDERED: diphenhydrAMINE 50 MG Cap PO PRN (14:35)
[2017-08-13] MEDS ORDERED: Acetaminophen 325 MG Tab PO PRN (14:35)
[2017-08-13] MEDS ORDERED: Non-Formulary Medication 1 Each (Meclizine Hcl [Meclizine Hcl] 25 MG) PO PRN (14:35)
[2017-08-13] MEDS ORDERED: Sodium Chloride 0.9% 10 ML Syringe FLUSH PRN (14:38)
[2017-08-13] MEDS ORDERED: Piperacillin/Tazobactam 4.5 GM Vial IV SCH (14:45)
[2017-08-13] MEDS ORDERED: Levofloxacin 250 MG/10 ML Soln ML PO SCH (15:00)
[2017-08-13] MEDS ORDERED: Loperamide 2 MG Cap PO PRN (15:11)
[2017-08-13] MEDS: Piperacillin/Tazobactam 4.5 GM in Sodium Chloride 0.9% 100 ML IV SCH ×2 (15:48→21:57)
[2017-08-13] MEDS: Levofloxacin 750 MG Tab PO SCH (15:49)
[2017-08-13] MEDS ORDERED: Aluminum Hydroxide/Magnesium Hydroxide/Simethicone 355 ML Bottle PO SCH (17:00)
[2017-08-13] MEDS: Ferrous Sulfate 325 MG Tab PO SCH (17:23)
[2017-08-13] MEDS: Aluminum Hydroxide/Magnesium Hydroxide/Simethicone Susp 30 ML Cup PO SCH (17:23)
[2017-08-13] MEDS: Docusate Sodium 100 MG Cap PO SCH (19:53)
[2017-08-13] MEDS: atorvaSTATin 20 MG Tab PO SCH (19:54)
[2017-08-13] MEDS: Gabapentin 300 MG Cap PO SCH (19:54)
[2017-08-13] MEDS: risperiDONE 1 MG Tab PO SCH (19:54)
[2017-08-13] MEDS: Sennosides 8.6 MG Tab PO SCH (19:54)
[2017-08-13] MEDS: Cyclobenzaprine 10 MG Tab PO SCH (19:54)
[2017-08-13] MEDS: Finasteride 5 MG Tab PO SCH (19:54)
[2017-08-13] MEDS: Aspirin/Dipyridamole 200-25 MG Cap.ER PO SCH (19:54)
[2017-08-13] MEDS: Nystatin Topical Powder 15 GM Bottle TOP SCH (19:55)
[2017-08-13] MEDS: Insulin Detemir 100 Units/ML 3 ML Pen SUBCUT SCH (20:00)
[2017-08-13] MEDS ORDERED: RISPERIDONE 0.5 MG PO SCH (20:00)
[2017-08-13] MEDS: Sodium Chloride 0.9% 500 ML IV SCH (22:00)
[2017-08-14] MEDS: Piperacillin/Tazobactam 4.5 GM in Sodium Chloride 0.9% 100 ML IV SCH ×4 (05:11→21:53)
[2017-08-14] MEDS: Pantoprazole 40 MG Tab.CR PO SCH (08:00)
[2017-08-14] MEDS ORDERED: Non-Formulary Medication 1 Each (Meclizine Hcl [Meclizine Hcl] 25 MG) PO SCH (08:00)
[2017-08-14] MEDS ORDERED: Non-Formulary Medication 1 Each (L.Acidoph,Paracasei, B.Lactis [Probiotic] 1 EACH) PO SCH (08:00)
[2017-08-14] MEDS: Aluminum Hydroxide/Magnesium Hydroxide/Simethicone Susp 30 ML Cup PO SCH ×2 (08:31→16:52)
[2017-08-14] MEDS: Acetaminophen/HYDROcodone 325-5 MG Tab PO PRN ×3 (08:32→21:55)
[2017-08-14] MEDS: Multivitamin, Childrens Tab.Chew PO SCH (08:34)
[2017-08-14] MEDS: Gabapentin 300 MG Cap PO SCH ×3 (08:34→19:19)
[2017-08-14] MEDS: Aspirin/Dipyridamole 200-25 MG Cap.ER PO SCH ×2 (08:34→19:19)
[2017-08-14] MEDS: Furosemide 20 MG Tab PO SCH (08:34)
[2017-08-14] MEDS: Sertraline 50 MG Tab PO SCH (08:35)
[2017-08-14] MEDS: Cyclobenzaprine 10 MG Tab PO SCH ×3 (08:35→19:19)
[2017-08-14] MEDS: risperiDONE 1 MG Tab PO SCH ×2 (08:35→19:20)
[2017-08-14] MEDS: Ferrous Sulfate 325 MG Tab PO SCH ×2 (08:35→16:52)
[2017-08-14] MEDS: Nystatin Topical Powder 15 GM Bottle TOP SCH ×3 (08:37→19:19)
[2017-08-14] MEDS: Docusate Sodium 100 MG Cap PO SCH ×2 (08:39→19:19)
[2017-08-14] MEDS: Acetaminophen/HYDROcodone 325-5 MG Tab PO SCH (11:06)
[2017-08-14] MEDS: Lactobacillus Acidophilus/Lactobacillus Sporogenes (Probiotic) Tab PO SCH (11:08)
[2017-08-14] MEDS: Spironolactone 25 MG Tab PO SCH (12:29)
[2017-08-14] MEDS: fentaNYL 12 MCG/HR Transdermal Patch TRDERM SCH (12:30)
[2017-08-14] MEDS: Levofloxacin 750 MG Tab PO SCH (15:33)
--- NOTE | 2017-08-14 16:46 | PCM.PN ---
- General Info Date of Service: 08/14/17 Subjective Update: Patient states he does feel a little short of breath today with some chest discomfort or pressure. Patient states the pressure is constant and he has had this feeling all morning. Denies any leg pain. No further concerns today. Functional Status: Reports: Pain Controlled, Tolerating Diet - Review of Systems HEENT: Reports: No Symptoms Pulmonary: Reports: No Symptoms Cardiovascular: Reports: No Symptoms Gastrointestinal: Reports: No Symptoms Musculoskeletal: Reports: No Symptoms Skin: Reports: Other (redness and irritation of wound of right stump improved from yesterday. ) Neurological: Reports: Pre-Existing Deficit - Patient Data Vitals - Most Recent: Last Vital Signs Temp 36.6 C 08/14/17 12:00 Pulse 89 08/14/17 12:00 Resp 16 08/14/17 12:00 BP 152/69 H 08/14/17 12:00 Pulse Ox 85 L 08/14/17 08:00 Weight - Most Recent: 96.6 kg I&O - Last 24 Hours: Intake & Output 08/14/17 08/14/17 08/14/17 06:59 14:59 22:59 Intake Total 411 Output Total 1050 Balance -639 Lab Results Last 24 Hours: Laboratory Results - last 24 hr 08/13/17 08/14/17 08/14/17 Range/Units 19:02 08:20 10:35 Sodium (136-145) mmol/L Potassium (3.5-5.1) mmol/L Chloride (98-107) mmol/L Carbon Dioxide (21.0-32.0) mmol/L Anion Gap (5.0-15.0) mmol/L BUN (8-26) mg/dL Creatinine (0.70-1.30) mg/dL Est Cr Clr Drug Dosing mL/min Estimated GFR (MDRD) (>60) MLS/MIN BUN/Creatinine Ratio (6-25) Glucose (74-100) mg/dL POC Glucose 150 H 95 (74-110) mg/dL Lactic Acid 1.33 (0.90-1.70) mmol/L Calcium (8.5-10.1) mg/dL Total Bilirubin (0.0-1.0) mg/dL AST (15-37) U/L ALT (12-78) U/L Alkaline Phosphatase (46-116) U/L Troponin I (0.000-0.060) ng/mL Total Protein (6.4-8.2) g/dL Albumin (3.4-5.0) g/dL Globulin (2.2-4.2) g/dL Albumin/Globulin Ratio (0.8-2.0) 08/14/17 08/14/17 Range/Units 11:35 11:35 Sodium 136 (136-145) mmol/L Potassium 4.5 (3.5-5.1) mmol/L Chloride 100 (98-107) mmol/L Carbon Dioxide 23.0 D (21.0-32.0) mmol/L Anion Gap 17.5 H (5.0-15.0) mmol/L BUN 9 D (8-26) mg/dL Creatinine 0.33 L D (0.70-1.30) mg/dL Est Cr Clr Drug Dosing 209.02 mL/min Estimated GFR (MDRD) > 60 (>60) MLS/MIN BUN/Creatinine Ratio 27.3 H (6-25) Glucose 106 H (74-100) mg/dL POC Glucose (74-110) mg/dL Lactic Acid (0.90-1.70) mmol/L Calcium 8.2 L (8.5-10.1) mg/dL Total Bilirubin 0.3 D (0.0-1.0) mg/dL AST 15 (15-37) U/L ALT 22 (12-78) U/L Alkaline Phosphatase 101 (46-116) U/L Troponin I < 0.017 (0.000-0.060) ng/mL Total Protein 6.0 L (6.4-8.2) g/dL Albumin 2.0 L (3.4-5.0) g/dL Globulin 4.0 (2.2-4.2) g/dL Albumin/Globulin Ratio 0.5 L (0.8-2.0) Nicolas Results Last 24 Hours: Microbiology 08/13/17 15:58 Aerobic Blood Culture - Preliminary Blood - Arm, Right NO GROWTH AFTER 1 DAY Anaerobic Blood Culture - Preliminary NO GROWTH AFTER 1 DAY 08/13/17 15:30 Aerobic Blood Culture - Preliminary Blood - Arm, Left NO GROWTH AFTER 1 DAY Anaerobic Blood Culture - Preliminary NO GROWTH AFTER 1 DAY Med Orders - Current: Current Medications Acetaminophen (Tylenol) 650 mg PO Q6H PRN PRN Reason: Pain Hydrocodone Bitart/Acetaminophen ([place] 325-5 Mg) 1 tab PO DAILY@1100 [facility] Last Admin: 08/14/17 11:06 Dose: Not Given Hydrocodone Bitart/Acetaminophen ([place] 325-5 Mg) 1 - 2 tab PO Q6HR PRN PRN Reason: Pain Last Admin: 08/14/17 15:33 Dose: 1 tab Al Hydroxide/Mg Hydroxide (Mag-Al Plus) 30 ml PO BIDMEALS [facility] Last Admin: 08/14/17 08:31 Dose: 30 ml Atorvastatin Calcium (Lipitor) 20 mg PO BEDTIME [facility] Last Admin: 08/13/17 19:54 Dose: 20 mg Cyclobenzaprine HCl (Flexeril) 10 mg PO TID [facility] Last Admin: 08/14/17 15:34 Dose: 10 mg Diphenhydramine HCl (Benadryl) 50 mg PO Q6H PRN PRN Reason: Itching Dipyridamole/Aspirin (Aggrenox 200-25 Mg) 1 cap PO BID [facility] Last Admin: 08/14/17 08:34 Dose: 1 cap Docusate Sodium (Colace) 100 mg PO BID [facility] Last Admin: 08/14/17 08:39 Dose: Not Given Fentanyl (Duragesic) 12 mcg TRDERM Q72H [facility] Last Admin: 08/14/17 12:30 Dose: 12 mcg Ferrous Sulfate (Ferrous Sulfate) 325 mg PO BIDMEALS [facility] Last Admin: 08/14/17 08:35 Dose: 325 mg Finasteride (Proscar) 5 mg PO QPM [facility] Last Admin: 08/13/17 19:54 Dose: 5 mg Furosemide (Lasix) 20 mg PO DAILY [facility] Last Admin: 08/14/17 08:34 Dose: 20 mg Gabapentin (Neurontin) 300 mg PO TID [facility] Last Admin: 08/14/17 15:34 Dose: 300 mg Piperacillin Sod/Tazobactam (Sod 4.5 gm/ Sodium Chloride) 100 mls @ 200 mls/hr IV Q6H [facility] Last Admin: 08/14/17 11:05 Dose: 200 mls/hr Sodium Chloride (Normal Saline) 500 mls @ 30 mls/hr IV ASDIRECTED [facility] Last Admin: 08/13/17 22:00 Dose: 30 mls/hr Insulin Detemir (Levemir) 20 unit SUBCUT BEDTIME [facility] Last Admin: 08/13/17 20:00 Dose: 20 unit Lactobacillus Acidophilus (Acidolphilus Extra Strength) 1 tab PO DAILY@1200 [facility] Last Admin: 08/14/17 11:08 Dose: 1 tab Levofloxacin (Levaquin) 750 mg PO DAILY@1600 [facility] Last Admin: 08/14/17 15:33 Dose: 750 mg Loperamide HCl (Imodium) 2 mg PO Q2H PRN PRN Reason: DIARRHEA Magnesium Hydroxide (Milk Of Magnesia) 30 ml PO DAILY PRN PRN Reason: Constipation Meclizine HCl (Antivert) 25 mg PO DAILY@1100 [facility] Last Admin: 08/14/17 11:08 Dose: 25 mg Meclizine HCl (Antivert) 25 mg PO DAILY PRN PRN Reason: DIZZINESS Miscellaneous Information (Remove Patch) 1 ea TRDERM Q72H [facility] Last Admin: 08/14/17 12:33 Dose: 1 ea Multivitamins/Minerals/Vitamin C (Childrens Chewable Vitamin) 1 tab PO DAILY [facility] Last Admin: 08/14/17 08:34 Dose: 1 tab Nystatin (Nystop) 15 gm TOP TID [facility] Last Admin: 08/14/17 15:34 Dose: 1 applic Pantoprazole Sodium (Protonix) 40 mg PO ACBREAKFAST [facility] Last Admin: 08/14/17 08:00 Dose: 40 mg Risperidone (Risperidal) 0.5 mg PO BID [facility] Last Admin: 08/14/17 08:35 Dose: 0.5 mg Senna (Senna) 17.2 mg PO BEDTIME [facility] Last Admin: 08/13/17 19:54 Dose: 8.6 mg Sertraline HCl (Zoloft) 50 mg PO DAILY [facility] Last Admin: 08/14/17 08:35 Dose: 50 mg Sodium Chloride (Saline Flush) 10 ml FLUSH ASDIRECTED PRN PRN Reason: Keep Vein Open Spironolactone (Aldactone) 12.5 mg PO Q48H [facility] Last Admin: 08/14/17 12:29 Dose: 12.5 mg - Exam General: Alert, Oriented, Cooperative HEENT: Pupils Equal, Pupils Reactive, EOMI Neck: Supple Lungs: Normal Respiratory Effort, Rales, Rhonchi Cardiovascular: Regular Rate, Regular Rhythm Extremities: Redness (of stump wound line but improved) Skin: Other (redness at staple line but improved) Psy/Mental Status: Alert, Normal Affect, Normal Mood - Problem List & Annotations (1) Empyema lung SNOMED Code(s): 605951892 Code(s): J86.9 - PYOTHORAX WITHOUT FISTULA Status: Acute Priority: High Current Visit: Yes (2) Below knee amputation status SNOMED Code(s): 958047726 Code(s): Z89.519 - ACQUIRED ABSENCE OF UNSPECIFIED LEG BELOW KNEE Status: Acute Priority: High Current Visit: Yes Qualifiers: Laterality: right Qualified Code(s): Z89.511 - Acquired absence of right leg below knee (3) Pneumonia SNOMED Code(s): 328792167 Code(s): J18.9 - PNEUMONIA, UNSPECIFIED ORGANISM Status: Acute Priority: High Current Visit: Yes Qualifiers: Pneumonia type: due to unspecified organism (4) Diabetes SNOMED Code(s): 40473977 Code(s): E11.9 - TYPE 2 DIABETES MELLITUS WITHOUT COMPLICATIONS Status: Chronic Priority: High Current Visit: Yes (5) 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 SNOMED Code(s): 24100916 Code(s): I69.359 - HEMIPLGA FOLLOWING CEREBRAL INFARCTION AFFECTING UNSP SIDE Status: Chronic Priority: Medium Current Visit: Yes (6) History of CVA (cerebrovascular accident) SNOMED Code(s): 317104959 Code(s): Z86.73 - PRSNL HX OF TIA (TIA), AND CEREB INFRC W/O RESID DEFICITS Status: Chronic Priority: Medium Current Visit: Yes - Problem List Review Problem List Initiated/Reviewed/Updated: Yes - My Orders Last 24 Hours: My Active Orders 08/13/17 15:58 CULTURE BLOOD [BC] Routine 08/13/17 16:00 Levofloxacin [Levaquin] 750 mg PO DAILY@1600 Piperacillin/Tazobactam [Zosyn] 4.5 gm Sodium Chloride 0.9% [Normal Saline] 100 ml IV Q6H 08/13/17 17:00 Alum Hydrox/Mag Hydrox/Simeth [Mag-Al Plus] 30 ml PO BIDMEALS Ferrous Sulfate 325 mg PO BIDMEALS 08/13/17 20:00 Aspirin/Dipyridamole [Aggrenox 200-25 MG] 1 cap PO BID Cyclobenzaprine [Flexeril] 10 mg PO TID Docusate Sodium [Colace] 100 mg PO BID Finasteride [Proscar] 5 mg PO QPM Gabapentin [Neurontin] 300 mg PO TID Insulin Detemir [Levemir] 20 unit SUBCUT BEDTIME Nystatin [Nystop] 15 gm TOP TID Sennosides [Senna] 17.2 mg PO BEDTIME atorvaSTATin [Lipitor] 20 mg PO BEDTIME risperiDONE [RisperiDAL] 0.5 mg PO BID 08/13/17 22:00 Sodium Chloride 0.9% [Normal Saline] 500 ml IV ASDIRECTED 08/13/17 Dinner Regular Diet [DIET] 08/14/17 07:00 Pantoprazole [ProTONIX] 40 mg PO ACBREAKFAST 08/14/17 08:00 Furosemide [Lasix] 20 mg PO DAILY Multivitamins [Childrens Chewable Vitamin] 1 tab PO DAILY Sertraline [Zoloft] 50 mg PO DAILY 08/14/17 11:00 Acetaminophen/HYDROcodone [[place] 325-5 MG] 1 tab PO DAILY@1100 Meclizine [Antivert] 25 mg PO DAILY@1100 08/14/17 11:13 CBC WITH AUTO DIFF [HEME] Routine 08/14/17 11:29 Chest 1V Frontal [CR] Routine 08/14/17 12:00 Acidophilus/Lactobac Spor [Acidolphilus Extra Strength] 1 tab PO DAILY@1200 Remove Patch 1 ea TRDERM Q72H Spironolactone [Aldactone] 12.5 mg PO Q48H fentaNYL [Duragesic] 12 mcg TRDERM Q72H 08/14/17 14:09 OT Evaluation and Treatment [CONS] Routine PT Evaluation and Treatment [CONS] Routine 08/15/17 05:11 CBC WITH AUTO DIFF [HEME] AM COMPREHENSIVE METABOLIC PN,CMP [CHEM] AM - Plan Plan:: Patient to continue on Zosyn for wound infection, as well as pneumonia with empyema. Discussed plan of care and transfer options but patient and would like to remain on conservative care with IV antibiotics for the next few days for improvement and if any worsening changes then they will agree to transfer. Discussed risk of empyema and management and patient and would like conservative management here and if worsening changes or status then for transfer. PT for wound care to continue. OT for ADLs. We will continue with current medications and IV Zosyn and oral Levofloxacin. Recheck wound in AM and labs in AM. Consider follow up CXR in a few days. CXR to be done today.
[2017-08-14] MEDS: Sodium Chloride 0.9% 500 ML IV SCH (16:50)
[2017-08-14] MEDS ORDERED: Furosemide 40 MG/4 ML VIAL IVPUSH ONE (18:57)
[2017-08-14] MEDS ORDERED: Albuterol/Ipratropium 3.0-0.5 MG/3 ML Neb Soln NEB SCH (19:00)
[2017-08-14] MEDS: atorvaSTATin 20 MG Tab PO SCH (19:19)
[2017-08-14] MEDS: Finasteride 5 MG Tab PO SCH (19:19)
[2017-08-14] MEDS: Sennosides 8.6 MG Tab PO SCH (19:20)
[2017-08-14] MEDS: Insulin Detemir 100 Units/ML 3 ML Pen SUBCUT SCH (19:37)
--- NOTE | 2017-08-14 19:47 | CR ---
DATE OF SERVICE: 08/14/2017 CLINICAL DATA: Pneumonia, empyema. AP PORTABLE CHEST: Left costophrenic angle is cut off. Comparison is made to a prior exam dated 02/19/2013. The patient is status post median sternotomy. The heart appears enlarged, but the left heart border is obscured. The patient has taken a very poor inspiration. The pulmonary vasculature does appear prominent suggesting pulmonary venous congestion. There is a large left pleural effusion. There is atelectasis and dense consolidation in the left mid and lower lung. Pneumonia should be considered. There is also a patchy infiltrate in the left upper lobe adjacent to the aortic arch. The exam is otherwise unchanged from the prior. Followup imaging is recommended. [id number] [facility]
[2017-08-14] MEDS ORDERED: Albuterol/Ipratropium 3.0-0.5 MG/3 ML Neb Soln NEB PRN (20:39)
[2017-08-15] MEDS: Piperacillin/Tazobactam 4.5 GM in Sodium Chloride 0.9% 100 ML IV SCH ×4 (04:06→20:45)
[2017-08-15] MEDS: Pantoprazole 40 MG Tab.CR PO SCH (06:56)
[2017-08-15] MEDS: Aluminum Hydroxide/Magnesium Hydroxide/Simethicone Susp 30 ML Cup PO SCH ×2 (07:57→18:00)
[2017-08-15] MEDS: Sertraline 50 MG Tab PO SCH (07:59)
[2017-08-15] MEDS: Gabapentin 300 MG Cap PO SCH ×3 (07:59→19:38)
[2017-08-15] MEDS: risperiDONE 1 MG Tab PO SCH ×2 (08:00→19:38)
[2017-08-15] MEDS: Aspirin/Dipyridamole 200-25 MG Cap.ER PO SCH ×2 (08:00→19:39)
[2017-08-15] MEDS: Docusate Sodium 100 MG Cap PO SCH ×2 (08:01→19:38)
[2017-08-15] MEDS: Cyclobenzaprine 10 MG Tab PO SCH ×3 (08:01→19:39)
[2017-08-15] MEDS: Acetaminophen/HYDROcodone 325-5 MG Tab PO PRN (08:01)
[2017-08-15] MEDS: Furosemide 20 MG Tab PO SCH (08:01)
[2017-08-15] MEDS: Ferrous Sulfate 325 MG Tab PO SCH ×2 (08:02→18:00)
[2017-08-15] MEDS: Multivitamin, Childrens Tab.Chew PO SCH (08:03)
[2017-08-15] MEDS: Nystatin Topical Powder 15 GM Bottle TOP SCH ×3 (09:00→20:15)
[2017-08-15] MEDS: Acetaminophen/HYDROcodone 325-5 MG Tab PO SCH ×2 (10:37→19:41)
[2017-08-15] MEDS: Lactobacillus Acidophilus/Lactobacillus Sporogenes (Probiotic) Tab PO SCH (12:00)
--- NOTE | 2017-08-15 12:55 | PCM.PN ---
- General Info Date of Service: 08/15/17 Subjective Update: Patient states he feels fine, not much better and not worse. Denies any chest pain or sob. No stump pain. - Review of Systems General: Reports: Weakness HEENT: Reports: No Symptoms Pulmonary: Reports: No Symptoms Cardiovascular: Reports: No Symptoms Gastrointestinal: Reports: No Symptoms Musculoskeletal: Reports: No Symptoms Skin: Reports: Other (irritation at wound improving. ) - Patient Data Vitals - Most Recent: Last Vital Signs Temp 36.5 C 08/15/17 10:43 Pulse 87 08/15/17 10:43 Resp 15 08/15/17 10:43 BP 136/59 L 08/15/17 10:43 Pulse Ox 95 08/15/17 07:04 Weight - Most Recent: 96.6 kg I&O - Last 24 Hours: Intake & Output 08/14/17 08/15/17 08/15/17 22:59 06:59 14:59 Intake Total 1040 530 Output Total 3650 525 Balance -2610 5 Lab Results Last 24 Hours: Laboratory Results - last 24 hr 08/14/17 08/15/17 08/15/17 Range/Units 18:25 07:25 07:25 WBC 8.1 (4.0-11.0) K/uL RBC 2.91 L (4.50-6.50) M/uL Hgb 8.6 L (13.0-18.0) g/dL Hct 27.1 L (40.0-54.0) % MCV 93 (76-96) fL MCH 29.6 (27.0-32.0) pg MCHC 31.7 (31.0-35.0) g/dL RDW 13.8 (11.0-16.0) % Plt Count 191 (150-400) K/uL MPV 9.1 (6.0-10.0) fL Neut % (Auto) 69.8 (45.0-70.0) % Lymph % (Auto) 13.4 L (20.0-40.0) % [place] % (Auto) 12.4 H (3.0-10.0) % Eos % (Auto) 4.2 (1.0-5.0) % Baso % (Auto) 0.2 (0.0-0.5) % Neut # (Auto) 5.61 (2.00-7.50) K/uL Lymph # (Auto) 1.08 L (1.50-4.00) K/uL [place] # (Auto) 1.00 H (0.20-0.80) K/uL Eos # (Auto) 0.34 (0.04-0.40) K/uL Baso # (Auto) 0.02 (0.02-0.10) K/uL Sodium 137 (136-145) mmol/L Potassium 3.7 (3.5-5.1) mmol/L Chloride 100 (98-107) mmol/L Carbon Dioxide 34.0 H D (21.0-32.0) mmol/L Anion Gap 6.7 (5.0-15.0) mmol/L BUN 8 (8-26) mg/dL Creatinine 0.80 D (0.70-1.30) mg/dL Est Cr Clr Drug Dosing 86.22 mL/min Estimated GFR (MDRD) > 60 (>60) MLS/MIN BUN/Creatinine Ratio 10.0 (6-25) Glucose 67 L D (74-100) mg/dL POC Glucose 176 H (74-110) mg/dL Calcium 7.9 L (8.5-10.1) mg/dL Total Bilirubin 0.3 (0.0-1.0) mg/dL AST 17 (15-37) U/L ALT 18 (12-78) U/L Alkaline Phosphatase 93 (46-116) U/L B-Natriuretic Peptide (0-450) pg/mL Total Protein 5.6 L (6.4-8.2) g/dL Albumin 1.9 L (3.4-5.0) g/dL Globulin 3.7 (2.2-4.2) g/dL Albumin/Globulin Ratio 0.5 L (0.8-2.0) 08/15/17 Range/Units 07:25 WBC (4.0-11.0) K/uL RBC (4.50-6.50) M/uL Hgb (13.0-18.0) g/dL Hct (40.0-54.0) % MCV (76-96) fL MCH (27.0-32.0) pg MCHC (31.0-35.0) g/dL RDW (11.0-16.0) % Plt Count (150-400) K/uL MPV (6.0-10.0) fL Neut % (Auto) (45.0-70.0) % Lymph % (Auto) (20.0-40.0) % [place] % (Auto) (3.0-10.0) % Eos % (Auto) (1.0-5.0) % Baso % (Auto) (0.0-0.5) % Neut # (Auto) (2.00-7.50) K/uL Lymph # (Auto) (1.50-4.00) K/uL [place] # (Auto) (0.20-0.80) K/uL Eos # (Auto) (0.04-0.40) K/uL Baso # (Auto) (0.02-0.10) K/uL Sodium (136-145) mmol/L Potassium (3.5-5.1) mmol/L Chloride (98-107) mmol/L Carbon Dioxide (21.0-32.0) mmol/L Anion Gap (5.0-15.0) mmol/L BUN (8-26) mg/dL Creatinine (0.70-1.30) mg/dL Est Cr Clr Drug Dosing mL/min Estimated GFR (MDRD) (>60) MLS/MIN BUN/Creatinine Ratio (6-25) Glucose (74-100) mg/dL POC Glucose (74-110) mg/dL Calcium (8.5-10.1) mg/dL Total Bilirubin (0.0-1.0) mg/dL AST (15-37) U/L ALT (12-78) U/L Alkaline Phosphatase (46-116) U/L B-Natriuretic Peptide 2911 H (0-450) pg/mL Total Protein (6.4-8.2) g/dL Albumin (3.4-5.0) g/dL Globulin (2.2-4.2) g/dL Albumin/Globulin Ratio (0.8-2.0) Nicolas Results Last 24 Hours: Microbiology 08/13/17 15:58 Aerobic Blood Culture - Preliminary Blood - Arm, Right NO GROWTH AFTER 1 DAY Anaerobic Blood Culture - Preliminary NO GROWTH AFTER 1 DAY 08/13/17 15:30 Aerobic Blood Culture - Preliminary Blood - Arm, Left NO GROWTH AFTER 1 DAY Anaerobic Blood Culture - Preliminary NO GROWTH AFTER 1 DAY Med Orders - Current: Current Medications Acetaminophen (Tylenol) 650 mg PO Q6H PRN PRN Reason: Pain Hydrocodone Bitart/Acetaminophen ([place] 325-5 Mg) 1 tab PO DAILY@1100 [facility] Last Admin: 08/15/17 10:37 Dose: 1 tab Hydrocodone Bitart/Acetaminophen ([place] 325-5 Mg) 1 - 2 tab PO Q6HR PRN PRN Reason: Pain Last Admin: 08/15/17 08:01 Dose: 1 tab Al Hydroxide/Mg Hydroxide (Mag-Al Plus) 30 ml PO BIDMEALS [facility] Last Admin: 08/15/17 07:57 Dose: 30 ml Albuterol/Ipratropium (Duoneb 3.0-0.5 Mg/3 Ml) 3 ml NEB Q4H PRN PRN Reason: Wheezing Atorvastatin Calcium (Lipitor) 20 mg PO BEDTIME [facility] Last Admin: 08/14/17 19:19 Dose: 20 mg Cyclobenzaprine HCl (Flexeril) 10 mg PO TID [facility] Last Admin: 08/15/17 08:01 Dose: 10 mg Diphenhydramine HCl (Benadryl) 50 mg PO Q6H PRN PRN Reason: Itching Dipyridamole/Aspirin (Aggrenox 200-25 Mg) 1 cap PO BID [facility] Last Admin: 08/15/17 08:00 Dose: 1 cap Docusate Sodium (Colace) 100 mg PO BID [facility] Last Admin: 08/15/17 08:01 Dose: 100 mg Fentanyl (Duragesic) 12 mcg TRDERM Q72H [facility] Last Admin: 08/14/17 12:30 Dose: 12 mcg Ferrous Sulfate (Ferrous Sulfate) 325 mg PO BIDMEALS [facility] Last Admin: 08/15/17 08:02 Dose: 325 mg Finasteride (Proscar) 5 mg PO QPM [facility] Last Admin: 08/14/17 19:19 Dose: 5 mg Furosemide (Lasix) 20 mg PO DAILY [facility] Last Admin: 08/15/17 08:01 Dose: 20 mg Gabapentin (Neurontin) 300 mg PO TID [facility] Last Admin: 08/15/17 07:59 Dose: 300 mg Piperacillin Sod/Tazobactam (Sod 4.5 gm/ Sodium Chloride) 100 mls @ 200 mls/hr IV Q6H [facility] Last Admin: 08/15/17 10:40 Dose: 200 mls/hr Sodium Chloride (Normal Saline) 500 mls @ 30 mls/hr IV ASDIRECTED [facility] Last Admin: 08/14/17 16:50 Dose: 30 mls/hr Insulin Detemir (Levemir) 20 unit SUBCUT BEDTIME [facility] Last Admin: 08/14/17 19:37 Dose: 20 unit Lactobacillus Acidophilus (Acidolphilus Extra Strength) 1 tab PO DAILY@1200 [facility] Last Admin: 08/15/17 12:00 Dose: 1 tab Levofloxacin (Levaquin) 750 mg PO DAILY@1600 [facility] Last Admin: 08/14/17 15:33 Dose: 750 mg Loperamide HCl (Imodium) 2 mg PO Q2H PRN PRN Reason: DIARRHEA Magnesium Hydroxide (Milk Of Magnesia) 30 ml PO DAILY PRN PRN Reason: Constipation Meclizine HCl (Antivert) 25 mg PO DAILY@1100 [facility] Last Admin: 08/15/17 10:37 Dose: 25 mg Meclizine HCl (Antivert) 25 mg PO DAILY PRN PRN Reason: DIZZINESS Miscellaneous Information (Remove Patch) 1 ea TRDERM Q72H [facility] Last Admin: 08/14/17 12:33 Dose: 1 ea Multivitamins/Minerals/Vitamin C (Childrens Chewable Vitamin) 1 tab PO DAILY [facility] Last Admin: 08/15/17 08:03 Dose: 1 tab Nystatin (Nystop) 15 gm TOP TID [facility] Last Admin: 08/14/17 19:19 Dose: 1 applic Pantoprazole Sodium (Protonix) 40 mg PO ACBREAKFAST [facility] Last Admin: 08/15/17 06:56 Dose: 40 mg Risperidone (Risperidal) 0.5 mg PO BID [facility] Last Admin: 08/15/17 08:00 Dose: 0.5 mg Senna (Senna) 17.2 mg PO BEDTIME [facility] Last Admin: 08/14/17 19:20 Dose: Not Given Sertraline HCl (Zoloft) 50 mg PO DAILY [facility] Last Admin: 08/15/17 07:59 Dose: 50 mg Sodium Chloride (Saline Flush) 10 ml FLUSH ASDIRECTED PRN PRN Reason: Keep Vein Open Spironolactone (Aldactone) 12.5 mg PO Q48H [facility] Last Admin: 08/14/17 12:29 Dose: 12.5 mg Discontinued Medications Albuterol/Ipratropium (Duoneb 3.0-0.5 Mg/3 Ml) 3 ml NEB Q4H [facility] Last Admin: 08/14/17 19:18 Dose: 3 ml Furosemide (Lasix) 40 mg IVPUSH NOW ONE Stop: 08/14/17 18:58 Last Admin: 08/14/17 19:19 Dose: 40 mg - Exam General: Alert, Oriented, Cooperative HEENT: Pupils Equal, Pupils Reactive Neck: Supple Lungs: Clear to Auscultation, Normal Respiratory Effort Cardiovascular: Regular Rate, Regular Rhythm GI/Abdominal Exam: Normal Bowel Sounds Extremities: Other (improved wound site and improving erythema) - Problem List & Annotations (1) Empyema lung SNOMED Code(s): 586243819 Code(s): J86.9 - PYOTHORAX WITHOUT FISTULA Status: Acute Priority: High Current Visit: Yes (2) Below knee amputation status SNOMED Code(s): 887562677 Code(s): Z89.519 - ACQUIRED ABSENCE OF UNSPECIFIED LEG BELOW KNEE Status: Acute Priority: High Current Visit: Yes Qualifiers: Laterality: right Qualified Code(s): Z89.511 - Acquired absence of right leg below knee (3) Pneumonia SNOMED Code(s): 439984014 Code(s): J18.9 - PNEUMONIA, UNSPECIFIED ORGANISM Status: Acute Priority: High Current Visit: Yes Qualifiers: Pneumonia type: due to unspecified organism (4) Diabetes SNOMED Code(s): 80748715 Code(s): E11.9 - TYPE 2 DIABETES MELLITUS WITHOUT COMPLICATIONS Status: Chronic Priority: High Current Visit: Yes (5) 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 SNOMED Code(s): 38504783 Code(s): I69.359 - HEMIPLGA FOLLOWING CEREBRAL INFARCTION AFFECTING UNSP SIDE Status: Chronic Priority: Medium Current Visit: Yes (6) History of CVA (cerebrovascular accident) SNOMED Code(s): 870029684 Code(s): Z86.73 - PRSNL HX OF TIA (TIA), AND CEREB INFRC W/O RESID DEFICITS Status: Chronic Priority: Medium Current Visit: Yes - Problem List Review Problem List Initiated/Reviewed/Updated: Yes - My Orders Last 24 Hours: My Active Orders 08/14/17 12:00 Acidophilus/Lactobac Spor [Acidolphilus Extra Strength] 1 tab PO DAILY@1200 Remove Patch 1 ea TRDERM Q72H Spironolactone [Aldactone] 12.5 mg PO Q48H fentaNYL [Duragesic] 12 mcg TRDERM Q72H 08/14/17 14:09 OT Evaluation and Treatment [CONS] Routine PT Evaluation and Treatment [CONS] Routine 08/14/17 18:21 CLOSTRIDIUM DIFFICILE BY PCR [RM] Routine 08/14/17 20:39 Albuterol/Ipratropium [DuoNeb 3.0-0.5 MG/3 ML] 3 ml NEB Q4H PRN 08/16/17 08:00 Chest 1V Frontal [CR] DAILY - Plan Plan:: Patient to continue on Zosyn for wound infection, as well as pneumonia with empyema. Discussed plan of care and transfer options but patient and would like to remain on conservative care with IV antibiotics for the next few days for improvement and if any worsening changes then they will agree to transfer. Discussed risk of empyema and management and patient and would like conservative management here and if worsening changes or status then for transfer. PT for wound care to continue. OT for ADLs. We will continue with current medications and IV Zosyn and oral Levofloxacin. Recheck wound in AM and labs in AM. Consider follow up CXR in a few days. CXR to be done today. 08/15/17 Patient to continue on IV antibiotics and oral levaquin. Discussed improved signs of infection and resolving erythema and drainage. Continue current management and repeat CXR in am with labs.
[2017-08-15] MEDS: Levofloxacin 750 MG Tab PO SCH (18:00)
[2017-08-15] MEDS: Finasteride 5 MG Tab PO SCH (19:39)
[2017-08-15] MEDS: Sennosides 8.6 MG Tab PO SCH (19:39)
[2017-08-15] MEDS: atorvaSTATin 20 MG Tab PO SCH (19:39)
[2017-08-15] MEDS: Insulin Detemir 100 Units/ML 3 ML Pen SUBCUT SCH (19:59)
[2017-08-16] MEDS: Piperacillin/Tazobactam 4.5 GM in Sodium Chloride 0.9% 100 ML IV SCH ×3 (04:00→19:07)
[2017-08-16] MEDS: risperiDONE 1 MG Tab PO SCH ×2 (08:02→20:05)
[2017-08-16] MEDS: Docusate Sodium 100 MG Cap PO SCH ×2 (08:02→20:06)
[2017-08-16] MEDS: Multivitamin, Childrens Tab.Chew PO SCH (08:05)
[2017-08-16] MEDS: Furosemide 20 MG Tab PO SCH (08:06)
[2017-08-16] MEDS: Aspirin/Dipyridamole 200-25 MG Cap.ER PO SCH ×2 (08:06→20:06)
[2017-08-16] MEDS: Ferrous Sulfate 325 MG Tab PO SCH ×2 (08:07→18:15)
[2017-08-16] MEDS: Sertraline 50 MG Tab PO SCH (08:07)
[2017-08-16] MEDS: Cyclobenzaprine 10 MG Tab PO SCH ×3 (08:07→20:07)
[2017-08-16] MEDS: Gabapentin 300 MG Cap PO SCH ×3 (08:07→20:07)
[2017-08-16] MEDS: Aluminum Hydroxide/Magnesium Hydroxide/Simethicone Susp 30 ML Cup PO SCH ×2 (08:08→18:15)
[2017-08-16] MEDS: Pantoprazole 40 MG Tab.CR PO SCH (08:08)
[2017-08-16] MEDS: Nystatin Topical Powder 15 GM Bottle TOP SCH ×3 (08:09→20:09)
--- NOTE | 2017-08-16 08:26 | PCM.PN ---
- General Info Date of Service: 08/16/17 Subjective Update: Patient eating well and denies any concerns today. Per nurse Matt states he had some right foot pain but states it was momentary. It should be noted that his amputation is right below knee. Patient denies any fever or chills or sob or chest pain. Functional Status: Reports: Pain Controlled, Tolerating Diet - Review of Systems General: Reports: Weakness HEENT: Reports: No Symptoms Pulmonary: Reports: No Symptoms Cardiovascular: Reports: No Symptoms Gastrointestinal: Reports: No Symptoms Genitourinary: Reports: Incontinence Skin: Reports: Other (wound of right stump ) Neurological: Reports: Pre-Existing Deficit - Patient Data Vitals - Most Recent: Last Vital Signs Temp 36.6 C 08/15/17 20:00 Pulse 89 08/15/17 20:00 Resp 16 08/16/17 04:00 BP 142/84 H 08/15/17 20:00 Pulse Ox 95 08/15/17 07:04 Weight - Most Recent: 96.6 kg I&O - Last 24 Hours: Intake & Output 08/15/17 08/16/17 08/16/17 22:59 06:59 14:59 Intake Total 1180 350 Output Total 1200 700 Balance -20 -350 Lab Results Last 24 Hours: Laboratory Results - last 24 hr 08/15/17 08/15/17 08/15/17 Range/Units 05:52 07:25 07:25 Sodium 137 (136-145) mmol/L Potassium 3.7 (3.5-5.1) mmol/L Chloride 100 (98-107) mmol/L Carbon Dioxide 34.0 H D (21.0-32.0) mmol/L Anion Gap 6.7 (5.0-15.0) mmol/L BUN 8 (8-26) mg/dL Creatinine 0.80 D (0.70-1.30) mg/dL Est Cr Clr Drug Dosing 86.22 mL/min Estimated GFR (MDRD) > 60 (>60) MLS/MIN BUN/Creatinine Ratio 10.0 (6-25) Glucose 67 L D (74-100) mg/dL POC Glucose 61 L (74-110) mg/dL Calcium 7.9 L (8.5-10.1) mg/dL Total Bilirubin 0.3 (0.0-1.0) mg/dL AST 17 (15-37) U/L ALT 18 (12-78) U/L Alkaline Phosphatase 93 (46-116) U/L B-Natriuretic Peptide 2911 H (0-450) pg/mL Total Protein 5.6 L (6.4-8.2) g/dL Albumin 1.9 L (3.4-5.0) g/dL Globulin 3.7 (2.2-4.2) g/dL Albumin/Globulin Ratio 0.5 L (0.8-2.0) 08/15/17 Range/Units 18:56 Sodium (136-145) mmol/L Potassium (3.5-5.1) mmol/L Chloride (98-107) mmol/L Carbon Dioxide (21.0-32.0) mmol/L Anion Gap (5.0-15.0) mmol/L BUN (8-26) mg/dL Creatinine (0.70-1.30) mg/dL Est Cr Clr Drug Dosing mL/min Estimated GFR (MDRD) (>60) MLS/MIN BUN/Creatinine Ratio (6-25) Glucose (74-100) mg/dL POC Glucose 161 H (74-110) mg/dL Calcium (8.5-10.1) mg/dL Total Bilirubin (0.0-1.0) mg/dL AST (15-37) U/L ALT (12-78) U/L Alkaline Phosphatase (46-116) U/L B-Natriuretic Peptide (0-450) pg/mL Total Protein (6.4-8.2) g/dL Albumin (3.4-5.0) g/dL Globulin (2.2-4.2) g/dL Albumin/Globulin Ratio (0.8-2.0) Nicolas Results Last 24 Hours: Microbiology 08/13/17 15:58 Aerobic Blood Culture - Preliminary Blood - Arm, Right NO GROWTH AFTER 2 DAYS Anaerobic Blood Culture - Preliminary NO GROWTH AFTER 2 DAYS 08/13/17 15:30 Aerobic Blood Culture - Preliminary Blood - Arm, Left NO GROWTH AFTER 2 DAYS Anaerobic Blood Culture - Preliminary NO GROWTH AFTER 2 DAYS Med Orders - Current: Current Medications Acetaminophen (Tylenol) 650 mg PO Q6H PRN PRN Reason: Pain Hydrocodone Bitart/Acetaminophen ([place] 325-5 Mg) 1 tab PO DAILY@1100 [facility] Last Admin: 08/15/17 19:41 Dose: 1 tab Hydrocodone Bitart/Acetaminophen ([place] 325-5 Mg) 1 - 2 tab PO Q6HR PRN PRN Reason: Pain Last Admin: 08/15/17 08:01 Dose: 1 tab Al Hydroxide/Mg Hydroxide (Mag-Al Plus) 30 ml PO BIDMEALS [facility] Last Admin: 08/16/17 08:08 Dose: 30 ml Albuterol/Ipratropium (Duoneb 3.0-0.5 Mg/3 Ml) 3 ml NEB Q4H PRN PRN Reason: Wheezing Atorvastatin Calcium (Lipitor) 20 mg PO BEDTIME [facility] Last Admin: 08/15/17 19:39 Dose: 20 mg Cyclobenzaprine HCl (Flexeril) 10 mg PO TID [facility] Last Admin: 08/16/17 08:07 Dose: 10 mg Diphenhydramine HCl (Benadryl) 50 mg PO Q6H PRN PRN Reason: Itching Dipyridamole/Aspirin (Aggrenox 200-25 Mg) 1 cap PO BID [facility] Last Admin: 08/16/17 08:06 Dose: 1 cap Docusate Sodium (Colace) 100 mg PO BID [facility] Last Admin: 08/16/17 08:02 Dose: 100 mg Fentanyl (Duragesic) 12 mcg TRDERM Q72H [facility] Last Admin: 08/14/17 12:30 Dose: 12 mcg Ferrous Sulfate (Ferrous Sulfate) 325 mg PO BIDMEALS [facility] Last Admin: 08/16/17 08:07 Dose: 325 mg Finasteride (Proscar) 5 mg PO QPM [facility] Last Admin: 08/15/17 19:39 Dose: 5 mg Furosemide (Lasix) 20 mg PO DAILY [facility] Last Admin: 08/16/17 08:06 Dose: 20 mg Gabapentin (Neurontin) 300 mg PO TID [facility] Last Admin: 08/16/17 08:07 Dose: 300 mg Piperacillin Sod/Tazobactam (Sod 4.5 gm/ Sodium Chloride) 100 mls @ 200 mls/hr IV Q6H [facility] Last Admin: 08/16/17 04:00 Dose: 200 mls/hr Sodium Chloride (Normal Saline) 500 mls @ 30 mls/hr IV ASDIRECTED [facility] Last Admin: 08/14/17 16:50 Dose: 30 mls/hr Insulin Detemir (Levemir) 20 unit SUBCUT BEDTIME [facility] Last Admin: 08/15/17 19:59 Dose: 20 unit Lactobacillus Acidophilus (Acidolphilus Extra Strength) 1 tab PO DAILY@1200 [facility] Last Admin: 08/15/17 12:00 Dose: 1 tab Levofloxacin (Levaquin) 750 mg PO DAILY@1600 [facility] Last Admin: 08/15/17 18:00 Dose: 750 mg Loperamide HCl (Imodium) 2 mg PO Q2H PRN PRN Reason: DIARRHEA Magnesium Hydroxide (Milk Of Magnesia) 30 ml PO DAILY PRN PRN Reason: Constipation Meclizine HCl (Antivert) 25 mg PO DAILY@1100 [facility] Last Admin: 08/15/17 10:37 Dose: 25 mg Meclizine HCl (Antivert) 25 mg PO DAILY PRN PRN Reason: DIZZINESS Miscellaneous Information (Remove Patch) 1 ea TRDERM Q72H [facility] Last Admin: 08/14/17 12:33 Dose: 1 ea Multivitamins/Minerals/Vitamin C (Childrens Chewable Vitamin) 1 tab PO DAILY [facility] Last Admin: 08/16/17 08:05 Dose: 1 tab Nystatin (Nystop) 15 gm TOP TID [facility] Last Admin: 08/16/17 08:09 Dose: Not Given Pantoprazole Sodium (Protonix) 40 mg PO ACBREAKFAST [facility] Last Admin: 08/16/17 08:08 Dose: 40 mg Risperidone (Risperidal) 0.5 mg PO BID [facility] Last Admin: 08/16/17 08:02 Dose: 0.5 mg Senna (Senna) 17.2 mg PO BEDTIME [facility] Last Admin: 08/15/17 19:39 Dose: 17.2 mg Sertraline HCl (Zoloft) 50 mg PO DAILY [facility] Last Admin: 08/16/17 08:07 Dose: 50 mg Sodium Chloride (Saline Flush) 10 ml FLUSH ASDIRECTED PRN PRN Reason: Keep Vein Open Spironolactone (Aldactone) 12.5 mg PO Q48H [facility] Last Admin: 08/14/17 12:29 Dose: 12.5 mg Discontinued Medications Albuterol/Ipratropium (Duoneb 3.0-0.5 Mg/3 Ml) 3 ml NEB Q4H [facility] Last Admin: 08/14/17 19:18 Dose: 3 ml Furosemide (Lasix) 40 mg IVPUSH NOW ONE Stop: 08/14/17 18:58 Last Admin: 08/14/17 19:19 Dose: 40 mg - Exam General: Alert, Oriented, Cooperative HEENT: Pupils Equal, Pupils Reactive Neck: Supple Lungs: Normal Respiratory Effort, Rales, Rhonchi (left lower) Cardiovascular: Regular Rate, Regular Rhythm GI/Abdominal Exam: Normal Bowel Sounds Extremities: Other (slight erythema of right leg wound, but stable and improving , 1.2cm escar of the right dog ear of necrotic tissue, stable today) - Problem List & Annotations (1) Empyema lung SNOMED Code(s): 216725777 Code(s): J86.9 - PYOTHORAX WITHOUT FISTULA Status: Acute Priority: High Current Visit: Yes (2) Below knee amputation status SNOMED Code(s): 003539043 Code(s): Z89.519 - ACQUIRED ABSENCE OF UNSPECIFIED LEG BELOW KNEE Status: Acute Priority: High Current Visit: Yes Qualifiers: Laterality: right Qualified Code(s): Z89.511 - Acquired absence of right leg below knee (3) Pneumonia SNOMED Code(s): 492192470 Code(s): J18.9 - PNEUMONIA, UNSPECIFIED ORGANISM Status: Acute Priority: High Current Visit: Yes Qualifiers: Pneumonia type: due to unspecified organism (4) Diabetes SNOMED Code(s): 76437642 Code(s): E11.9 - TYPE 2 DIABETES MELLITUS WITHOUT COMPLICATIONS Status: Chronic Priority: High Current Visit: Yes (5) 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 SNOMED Code(s): 66497832 Code(s): I69.359 - HEMIPLGA FOLLOWING CEREBRAL INFARCTION AFFECTING UNSP SIDE Status: Chronic Priority: Medium Current Visit: Yes (6) History of CVA (cerebrovascular accident) SNOMED Code(s): 870063413 Code(s): Z86.73 - PRSNL HX OF TIA (TIA), AND CEREB INFRC W/O RESID DEFICITS Status: Chronic Priority: Medium Current Visit: Yes - Problem List Review Problem List Initiated/Reviewed/Updated: Yes - My Orders Last 24 Hours: My Active Orders 08/16/17 07:30 BASIC METABOLIC PANEL,BMP [CHEM] AM CBC WITH AUTO DIFF [HEME] AM 08/16/17 08:00 Chest 1V Frontal [CR] DAILY - Plan Plan:: Patient to continue on Zosyn for wound infection, as well as pneumonia with empyema. Discussed plan of care and transfer options but patient and would like to remain on conservative care with IV antibiotics for the next few days for improvement and if any worsening changes then they will agree to transfer. Discussed risk of empyema and management and patient and would like conservative management here and if worsening changes or status then for transfer. PT for wound care to continue. OT for ADLs. We will continue with current medications and IV Zosyn and oral Levofloxacin. Recheck wound in AM and labs in AM. Consider follow up CXR in a few days. CXR to be done today. 08/15/17 Patient to continue on IV antibiotics and oral levaquin. Discussed improved signs of infection and resolving erythema and drainage. Continue current management and repeat CXR in am with labs. 08/16/17 We will continue antibiotics throughout the weekend. Continue wound care and dressing changes. We will change to swing bed today pending labs and CXR but clinically patient has improved.
--- NOTE | 2017-08-16 10:13 | CR ---
DATE OF SERVICE: 08/16/17 CLINICAL DATA: Empyema AP CHEST: Comparison is made to a prior exam dated 08/14/17. The heart remains enlarged, unchanged. The patient has taken a better inspiration on today's exam. The pulmonary venous congestion on the prior exam has improved. There is a persistent large left pleural effusion, unchanged. The atelectasis and consolidation in the left mid and lower lung has not changed. The left upper lobe infiltrate on the prior exam has partially resolved. The right lung appears clear on today's study. No other interval changes. Continued followup is recommended. [id number] [facility]
[2017-08-16] MEDS: Lactobacillus Acidophilus/Lactobacillus Sporogenes (Probiotic) Tab PO SCH (12:32)
[2017-08-16] MEDS: Acetaminophen/HYDROcodone 325-5 MG Tab PO SCH (12:32)
[2017-08-16] MEDS: Spironolactone 25 MG Tab PO SCH (15:08)
[2017-08-16] MEDS: Sodium Chloride 0.9% 10 ML Syringe FLUSH PRN (15:12)
[2017-08-16] MEDS: Insulin Detemir 100 Units/ML 3 ML Pen SUBCUT SCH (20:03)
[2017-08-16] MEDS: Finasteride 5 MG Tab PO SCH (20:07)
[2017-08-16] MEDS: atorvaSTATin 20 MG Tab PO SCH (20:07)
[2017-08-16] MEDS: Sennosides 8.6 MG Tab PO SCH (20:08)
[2017-08-16] MEDS: Sodium Chloride 0.9% 500 ML IV SCH (23:03)
[2017-08-16] MEDS: Sodium Chloride 0.9% 250 ML IV SCH (23:04)
[2017-08-17] MEDS: Piperacillin/Tazobactam 4.5 GM in Sodium Chloride 0.9% 100 ML IV SCH ×4 (00:13→17:59)
[2017-08-17] MEDS: Acetaminophen/HYDROcodone 325-5 MG Tab PO PRN (00:22)
[2017-08-17] MEDS ORDERED: Vancomycin 1 GM SDV ONE (00:31)
[2017-08-17] MEDS: Pantoprazole 40 MG Tab.CR PO SCH (06:23)
[2017-08-17] MEDS: Aluminum Hydroxide/Magnesium Hydroxide/Simethicone Susp 30 ML Cup PO SCH ×2 (08:11→16:28)
[2017-08-17] MEDS: risperiDONE 1 MG Tab PO SCH ×2 (08:14→19:46)
[2017-08-17] MEDS: Docusate Sodium 100 MG Cap PO SCH ×2 (08:15→19:47)
[2017-08-17] MEDS: Ferrous Sulfate 325 MG Tab PO SCH ×2 (08:15→16:28)
[2017-08-17] MEDS: Furosemide 20 MG Tab PO SCH (08:15)
[2017-08-17] MEDS: Gabapentin 300 MG Cap PO SCH ×3 (08:15→19:46)
[2017-08-17] MEDS: Cyclobenzaprine 10 MG Tab PO SCH ×3 (08:16→19:47)
[2017-08-17] MEDS: Multivitamin, Childrens Tab.Chew PO SCH (08:16)
[2017-08-17] MEDS: Sertraline 50 MG Tab PO SCH (08:16)
[2017-08-17] MEDS: Aspirin/Dipyridamole 200-25 MG Cap.ER PO SCH ×2 (08:16→19:47)
[2017-08-17] MEDS: Nystatin Topical Powder 15 GM Bottle TOP SCH ×3 (08:16→19:48)
--- NOTE | 2017-08-17 10:33 | PCM.PN ---
- General Info Date of Service: 08/17/17 Subjective Update: Pt is not in any discomfort, he claims he feels fine. No chest pain or shortness of breath. Maintaining his Sats on Room Air. No fever in the past 24 hrs. The right BKA wound draining discharge and there is a small new area of skin breakdown. Functional Status: Reports: Tolerating Diet, Urinating, Incentive Spirometry - Review of Systems General: Denies: Fever, Weakness, Fatigue HEENT: Denies: Sinus Congestion, Sore Throat Pulmonary: Reports: Cough. Denies: Shortness of Breath, Pleuritic Chest Pain, Sputum, Hemoptysis Cardiovascular: Denies: Chest Pain, Lightheadedness Gastrointestinal: Denies: Abdominal Pain, Constipation, Nausea, Vomiting Musculoskeletal: Denies: Joint Pain, Joint Swelling Skin: Denies: Bruising, Pruritis, Rash Neurological: Reports: Pre-Existing Deficit. Denies: Dizziness, Headache - Patient Data Vitals - Most Recent: Last Vital Signs Temp 97.8 F 08/17/17 08:00 Pulse 89 08/17/17 08:00 Resp 16 08/17/17 08:00 BP 132/71 08/17/17 08:00 Pulse Ox 98 08/17/17 08:00 Weight - Most Recent: 96.6 kg I&O - Last 24 Hours: Intake & Output 08/16/17 08/17/17 08/17/17 22:59 06:59 14:59 Intake Total 1450 1420 Output Total 1450 1475 Balance 0 -55 Lab Results Last 24 Hours: Laboratory Results - last 24 hr 08/16/17 08/16/17 Range/Units 07:24 18:17 POC Glucose 56 L 147 H (74-110) mg/dL Nicolas Results Last 24 Hours: Microbiology 08/13/17 15:58 Aerobic Blood Culture - Preliminary Blood - Arm, Right NO GROWTH AFTER 3 DAYS Anaerobic Blood Culture - Preliminary NO GROWTH AFTER 3 DAYS 08/13/17 15:30 Aerobic Blood Culture - Preliminary Blood - Arm, Left NO GROWTH AFTER 3 DAYS Anaerobic Blood Culture - Preliminary NO GROWTH AFTER 3 DAYS Med Orders - Current: Current Medications Acetaminophen (Tylenol) 650 mg PO Q6H PRN PRN Reason: Pain Hydrocodone Bitart/Acetaminophen ([place] 325-5 Mg) 1 tab PO DAILY@1100 [facility] Last Admin: 08/16/17 12:32 Dose: 1 tab Hydrocodone Bitart/Acetaminophen ([place] 325-5 Mg) 1 - 2 tab PO Q6HR PRN PRN Reason: Pain Last Admin: 08/17/17 00:22 Dose: 1 tab Al Hydroxide/Mg Hydroxide (Mag-Al Plus) 30 ml PO BIDMEALS [facility] Last Admin: 08/17/17 08:11 Dose: 30 ml Albuterol/Ipratropium (Duoneb 3.0-0.5 Mg/3 Ml) 3 ml NEB Q4H PRN PRN Reason: Wheezing Atorvastatin Calcium (Lipitor) 20 mg PO BEDTIME [facility] Last Admin: 08/16/17 20:07 Dose: 20 mg Cyclobenzaprine HCl (Flexeril) 10 mg PO TID [facility] Last Admin: 08/17/17 08:16 Dose: 10 mg Diphenhydramine HCl (Benadryl) 50 mg PO Q6H PRN PRN Reason: Itching Dipyridamole/Aspirin (Aggrenox 200-25 Mg) 1 cap PO BID [facility] Last Admin: 08/17/17 08:16 Dose: 1 cap Docusate Sodium (Colace) 100 mg PO BID [facility] Last Admin: 08/17/17 08:15 Dose: 100 mg Fentanyl (Duragesic) 12 mcg TRDERM Q72H [facility] Last Admin: 08/14/17 12:30 Dose: 12 mcg Ferrous Sulfate (Ferrous Sulfate) 325 mg PO BIDMEALS [facility] Last Admin: 08/17/17 08:15 Dose: 325 mg Finasteride (Proscar) 5 mg PO QPM [facility] Last Admin: 08/16/17 20:07 Dose: 5 mg Furosemide (Lasix) 20 mg PO DAILY [facility] Last Admin: 08/17/17 08:15 Dose: 20 mg Gabapentin (Neurontin) 300 mg PO TID [facility] Last Admin: 08/17/17 08:15 Dose: 300 mg Vancomycin HCl 1 gm/ Sodium (Chloride) 250 mls @ 200 mls/hr IV DAILY@1000,2200 [facility] Last Admin: 08/17/17 01:13 Dose: 200 mls/hr Piperacillin Sod/Tazobactam (Sod 4.5 gm/ Sodium Chloride) 100 mls @ 200 mls/hr IV Q6H [facility] Last Admin: 08/17/17 06:22 Dose: 200 mls/hr Sodium Chloride (Normal Saline) 250 mls @ 30 mls/hr IV ASDIRECTED [facility] Last Admin: 08/16/17 23:04 Dose: 30 mls/hr Insulin Detemir (Levemir) 20 unit SUBCUT BEDTIME [facility] Last Admin: 08/16/17 20:03 Dose: 20 unit Lactobacillus Acidophilus (Acidolphilus Extra Strength) 1 tab PO DAILY@1200 [facility] Last Admin: 08/16/17 12:32 Dose: 1 tab Levofloxacin (Levaquin) 750 mg PO DAILY@1600 [facility] Last Admin: 08/15/17 18:00 Dose: 750 mg Loperamide HCl (Imodium) 2 mg PO Q2H PRN PRN Reason: DIARRHEA Magnesium Hydroxide (Milk Of Magnesia) 30 ml PO DAILY PRN PRN Reason: Constipation Meclizine HCl (Antivert) 25 mg PO DAILY@1100 [facility] Last Admin: 08/16/17 12:32 Dose: 25 mg Meclizine HCl (Antivert) 25 mg PO DAILY PRN PRN Reason: DIZZINESS Miscellaneous Information (Remove Patch) 1 ea TRDERM Q72H [facility] Last Admin: 08/14/17 12:33 Dose: 1 ea Multivitamins/Minerals/Vitamin C (Childrens Chewable Vitamin) 1 tab PO DAILY [facility] Last Admin: 08/17/17 08:16 Dose: 1 tab Nystatin (Nystop) 15 gm TOP TID [facility] Last Admin: 08/17/17 08:16 Dose: 1 applic Pantoprazole Sodium (Protonix) 40 mg PO ACBREAKFAST [facility] Last Admin: 08/17/17 06:23 Dose: 40 mg Risperidone (Risperidal) 0.5 mg PO BID [facility] Last Admin: 08/17/17 08:14 Dose: 0.5 mg Senna (Senna) 17.2 mg PO BEDTIME [facility] Last Admin: 08/16/17 20:08 Dose: 17.2 mg Sertraline HCl (Zoloft) 50 mg PO DAILY [facility] Last Admin: 08/17/17 08:16 Dose: 50 mg Sodium Chloride (Saline Flush) 10 ml FLUSH ASDIRECTED PRN PRN Reason: Keep Vein Open Last Admin: 08/16/17 15:12 Dose: 10 ml Spironolactone (Aldactone) 12.5 mg PO Q48H [facility] Last Admin: 08/16/17 15:08 Dose: 12.5 mg Discontinued Medications Albuterol/Ipratropium (Duoneb 3.0-0.5 Mg/3 Ml) 3 ml NEB Q4H [facility] Last Admin: 08/14/17 19:18 Dose: 3 ml Furosemide (Lasix) 40 mg IVPUSH NOW ONE Stop: 08/14/17 18:58 Last Admin: 08/14/17 19:19 Dose: 40 mg Piperacillin Sod/Tazobactam (Sod 4.5 gm/ Sodium Chloride) 100 mls @ 200 mls/hr IV Q6H [facility] Last Admin: 08/16/17 11:45 Dose: 200 mls/hr Sodium Chloride (Normal Saline) 500 mls @ 30 mls/hr IV ASDIRECTED [facility] Last Admin: 08/16/17 23:03 Dose: 30 mls/hr Vancomycin HCl 1 gm/ Sodium (Chloride) 250 mls @ 200 mls/hr IV ASDIRECTED [facility] Stop: 08/16/17 14:30 Vancomycin HCl 1 gm/ Sodium (Chloride) 250 mls @ 200 mls/hr IV ASDIRECTED [facility] Stop: 08/16/17 16:00 Vancomycin HCl 1 gm/ Sodium (Chloride) 250 mls @ 200 mls/hr IV ASDIRECTED [facility] Stop: 08/16/17 16:00 Last Admin: 08/16/17 15:11 Dose: 200 mls/hr Vancomycin HCl (Vancomycin) Confirm Administered Dose 1 gm .ROUTE .K-MED ONE Stop: 08/17/17 00:32 Last Admin: 08/17/17 01:26 Dose: Not Given - Exam General: Alert, Oriented HEENT: Pupils Equal, Pupils Reactive, EOMI, Mucous Membr. Moist/[place] Neck: Supple Lungs: Normal Respiratory Effort, Decreased Breath Sounds (absent breath sound left lower lobe.). No: Crackles, Rhonchi Cardiovascular: Regular Rate, Regular Rhythm GI/Abdominal Exam: Normal Bowel Sounds, Soft, Non-Tender, No Organomegaly, No Distention, No Abnormal Bruit, No Mass, Pelvis Stable Extremities: Normal Capillary Refill, Other (Right BKA: the stump wound has and area over perea latral aspect whichhas a 2cm by 2cm larrge black scab with marginal erythema. There is 8mm area in prema mid incision where the skim is macerated and mild erythema sero sanginous discharge seen. No pus pockets along the suture line.) Skin: Warm Wound/Incisions: Drainage, Erythema (as described above) - Problem List & Annotations (1) Below knee amputation status SNOMED Code(s): 028662434 Code(s): Z89.519 - ACQUIRED ABSENCE OF UNSPECIFIED LEG BELOW KNEE Status: Acute Priority: High Current Visit: Yes Qualifiers: Laterality: right Qualified Code(s): Z89.511 - Acquired absence of right leg below knee (2) Empyema lung SNOMED Code(s): 676035718 Code(s): J86.9 - PYOTHORAX WITHOUT FISTULA Status: Acute Priority: High Current Visit: Yes (3) Wound infection after surgery SNOMED Code(s): 81803322 Code(s): T81.4XXA - INFECTION FOLLOWING A PROCEDURE, INITIAL ENCOUNTER Status: Acute Priority: High Current Visit: No - Problem List Review Problem List Initiated/Reviewed/Updated: Yes - Assessment Assessment:: left lower extremity empyema 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 Discussed pneumonia and the possibility of transfer as needed. At this time patient and would like to try IV antibiotics and measure here at the hospital and monitor for further eval prior to consideration of transfer. We will start Zosyn and continue oral levaquin and wound care daily. F/u labs and CXR in AM. 08/17/17 Afebrile. Status unchanged. the wound is the right BKA slowly healing. No new symptoms over the past 24 hrs.Will continue IV antibiotics . Will repeat CBC in Am and reassess.
[2017-08-17] MEDS: Acetaminophen/HYDROcodone 325-5 MG Tab PO SCH (10:52)
[2017-08-17] MEDS: fentaNYL 12 MCG/HR Transdermal Patch TRDERM SCH (11:01)
[2017-08-17] MEDS: Lactobacillus Acidophilus/Lactobacillus Sporogenes (Probiotic) Tab PO SCH (11:01)
[2017-08-17] MEDS: Insulin Detemir 100 Units/ML 3 ML Pen SUBCUT SCH (19:42)
[2017-08-17] MEDS: Finasteride 5 MG Tab PO SCH (19:47)
[2017-08-17] MEDS: Sennosides 8.6 MG Tab PO SCH (19:47)
[2017-08-17] MEDS: atorvaSTATin 20 MG Tab PO SCH (19:47)
[2017-08-18] MEDS: Piperacillin/Tazobactam 4.5 GM in Sodium Chloride 0.9% 100 ML IV SCH ×5 (01:51→16:31)
[2017-08-18] MEDS: Docusate Sodium 100 MG Cap PO SCH ×2 (07:34→20:31)
[2017-08-18] MEDS: Aluminum Hydroxide/Magnesium Hydroxide/Simethicone Susp 30 ML Cup PO SCH ×2 (07:34→18:02)
[2017-08-18] MEDS: Ferrous Sulfate 325 MG Tab PO SCH ×2 (07:34→18:02)
[2017-08-18] MEDS: Aspirin/Dipyridamole 200-25 MG Cap.ER PO SCH ×2 (07:35→20:30)
[2017-08-18] MEDS: risperiDONE 1 MG Tab PO SCH ×2 (07:35→20:30)
[2017-08-18] MEDS: Gabapentin 300 MG Cap PO SCH ×3 (07:35→20:30)
[2017-08-18] MEDS: Cyclobenzaprine 10 MG Tab PO SCH ×3 (07:36→20:31)
[2017-08-18] MEDS: Pantoprazole 40 MG Tab.CR PO SCH (07:36)
[2017-08-18] MEDS: Multivitamin, Childrens Tab.Chew PO SCH (07:36)
[2017-08-18] MEDS: Sertraline 50 MG Tab PO SCH (07:37)
[2017-08-18] MEDS: Furosemide 20 MG Tab PO SCH (07:37)
[2017-08-18] MEDS ORDERED: Menthol/Zinc Oxide Ointment 113 GM Tube TOP ONE (08:43)
[2017-08-18] MEDS: Nystatin Topical Powder 15 GM Bottle TOP SCH ×3 (10:03→21:53)
--- NOTE | 2017-08-18 11:32 | PCM.PN ---
- General Info Date of Service: 08/18/17 Subjective Update: Pt claims he feels fine. he has no complaints other than his bottom hurting from sleeping. No fever or chills. Afebrile overnight. Has had very minimal coughing. According to staff, he was awake on and off at night and had some confusion.Presently is is very oriented to place,person and time.Also patient has had 2 semi-formed loose stools today morning. No blood or mucus in the stool.No complaints. Functional Status: Reports: Pain Controlled, Tolerating Diet, Urinating, Incentive Spirometry - Review of Systems General: Denies: Fever, Weakness, Fatigue HEENT: Denies: Sinus Congestion, Sore Throat Pulmonary: Denies: Shortness of Breath, Cough, Sputum, Hemoptysis Cardiovascular: Denies: Chest Pain, Lightheadedness Gastrointestinal: Denies: Nausea, Vomiting Musculoskeletal: Denies: Joint Pain, Joint Swelling Skin: Denies: Bruising, Pruritis - Patient Data Vitals - Most Recent: Last Vital Signs Temp 97.6 F 08/18/17 05:12 Pulse 99 08/18/17 05:12 Resp 16 08/18/17 05:12 BP 154/96 H 08/18/17 05:12 Pulse Ox 96 08/18/17 05:12 Weight - Most Recent: 96.6 kg I&O - Last 24 Hours: Intake & Output 08/17/17 08/18/17 08/18/17 22:59 06:59 14:59 Intake Total 1700 890 Output Total 2300 500 Balance -600 390 Lab Results Last 24 Hours: Laboratory Results - last 24 hr 08/17/17 08/17/17 08/18/17 Range/Units 07:08 18:39 10:00 WBC (4.0-11.0) K/uL RBC (4.50-6.50) M/uL Hgb (13.0-18.0) g/dL Hct (40.0-54.0) % MCV (76-96) fL MCH (27.0-32.0) pg MCHC (31.0-35.0) g/dL RDW (11.0-16.0) % Plt Count (150-400) K/uL MPV (6.0-10.0) fL Neut % (Auto) (45.0-70.0) % Lymph % (Auto) (20.0-40.0) % [place] % (Auto) (3.0-10.0) % Eos % (Auto) (1.0-5.0) % Baso % (Auto) (0.0-0.5) % Neut # (Auto) (2.00-7.50) K/uL Lymph # (Auto) (1.50-4.00) K/uL [place] # (Auto) (0.20-0.80) K/uL Eos # (Auto) (0.04-0.40) K/uL Baso # (Auto) (0.02-0.10) K/uL POC Glucose 56 L 195 H (74-110) mg/dL Vancomycin Trough 12.3 H (5.0-10.0) ug/mL 08/18/17 Range/Units 10:00 WBC 9.2 (4.0-11.0) K/uL RBC 3.54 L (4.50-6.50) M/uL Hgb 10.3 L (13.0-18.0) g/dL Hct 32.8 L (40.0-54.0) % MCV 93 (76-96) fL MCH 29.1 (27.0-32.0) pg MCHC 31.4 (31.0-35.0) g/dL RDW 14.1 (11.0-16.0) % Plt Count 213 D (150-400) K/uL MPV 8.9 (6.0-10.0) fL Neut % (Auto) 77.7 H (45.0-70.0) % Lymph % (Auto) 9.3 L (20.0-40.0) % [place] % (Auto) 10.1 H (3.0-10.0) % Eos % (Auto) 2.6 (1.0-5.0) % Baso % (Auto) 0.3 (0.0-0.5) % Neut # (Auto) 7.15 (2.00-7.50) K/uL Lymph # (Auto) 0.86 L (1.50-4.00) K/uL [place] # (Auto) 0.93 H (0.20-0.80) K/uL Eos # (Auto) 0.24 (0.04-0.40) K/uL Baso # (Auto) 0.03 (0.02-0.10) K/uL POC Glucose (74-110) mg/dL Vancomycin Trough (5.0-10.0) ug/mL Nicolas Results Last 24 Hours: Microbiology 08/13/17 15:58 Aerobic Blood Culture - Preliminary Blood - Arm, Right NO GROWTH AFTER 4 DAYS Anaerobic Blood Culture - Preliminary NO GROWTH AFTER 4 DAYS 08/13/17 15:30 Aerobic Blood Culture - Preliminary Blood - Arm, Left NO GROWTH AFTER 4 DAYS Anaerobic Blood Culture - Preliminary NO GROWTH AFTER 4 DAYS Med Orders - Current: Current Medications Acetaminophen (Tylenol) 650 mg PO Q6H PRN PRN Reason: Pain Hydrocodone Bitart/Acetaminophen ([place] 325-5 Mg) 1 tab PO DAILY@1100 [facility] Last Admin: 08/17/17 10:52 Dose: 1 tab Hydrocodone Bitart/Acetaminophen ([place] 325-5 Mg) 1 - 2 tab PO Q6HR PRN PRN Reason: Pain Last Admin: 08/17/17 00:22 Dose: 1 tab Al Hydroxide/Mg Hydroxide (Mag-Al Plus) 30 ml PO BIDMEALS [facility] Last Admin: 08/18/17 07:34 Dose: 30 ml Albuterol/Ipratropium (Duoneb 3.0-0.5 Mg/3 Ml) 3 ml NEB Q4H PRN PRN Reason: Wheezing Atorvastatin Calcium (Lipitor) 20 mg PO BEDTIME [facility] Last Admin: 08/17/17 19:47 Dose: 20 mg Cyclobenzaprine HCl (Flexeril) 10 mg PO TID [facility] Last Admin: 08/18/17 07:36 Dose: 10 mg Diphenhydramine HCl (Benadryl) 50 mg PO Q6H PRN PRN Reason: Itching Dipyridamole/Aspirin (Aggrenox 200-25 Mg) 1 cap PO BID [facility] Last Admin: 08/18/17 07:35 Dose: 1 cap Docusate Sodium (Colace) 100 mg PO BID [facility] Last Admin: 08/18/17 07:34 Dose: 100 mg Fentanyl (Duragesic) 12 mcg TRDERM Q72H [facility] Last Admin: 08/17/17 11:01 Dose: 12 mcg Ferrous Sulfate (Ferrous Sulfate) 325 mg PO BIDMEALS [facility] Last Admin: 12/10/17 07:34 Dose: 325 mg Finasteride (Proscar) 5 mg PO QPM [facility] Last Admin: 08/17/17 19:47 Dose: 5 mg Furosemide (Lasix) 20 mg PO DAILY [facility] Last Admin: 08/18/17 07:37 Dose: 20 mg Gabapentin (Neurontin) 300 mg PO TID [facility] Last Admin: 08/18/17 07:35 Dose: 300 mg Sodium Chloride (Normal Saline) 250 mls @ 30 mls/hr IV ASDIRECTED [facility] Last Admin: 08/16/17 23:04 Dose: 30 mls/hr Piperacillin Sod/Tazobactam (Sod 4.5 gm/ Sodium Chloride) 100 mls @ 200 mls/hr IV Q6H [facility] Vancomycin HCl 1 gm/ Sodium (Chloride) 250 mls @ 200 mls/hr IV Q8H [facility] Insulin Detemir (Levemir) 20 unit SUBCUT BEDTIME [facility] Last Admin: 08/17/17 19:42 Dose: 20 unit Lactobacillus Acidophilus (Acidolphilus Extra Strength) 1 tab PO DAILY@1200 [facility] Last Admin: 08/17/17 11:01 Dose: 1 tab Levofloxacin (Levaquin) 750 mg PO DAILY@1600 [facility] Last Admin: 08/15/17 18:00 Dose: 750 mg Loperamide HCl (Imodium) 2 mg PO Q2H PRN PRN Reason: DIARRHEA Magnesium Hydroxide (Milk Of Magnesia) 30 ml PO DAILY PRN PRN Reason: Constipation Meclizine HCl (Antivert) 25 mg PO DAILY@1100 [facility] Last Admin: 08/17/17 10:52 Dose: 25 mg Meclizine HCl (Antivert) 25 mg PO DAILY PRN PRN Reason: DIZZINESS Miscellaneous Information (Remove Patch) 1 ea TRDERM Q72H [facility] Last Admin: 08/17/17 11:01 Dose: 1 ea Multivitamins/Minerals/Vitamin C (Childrens Chewable Vitamin) 1 tab PO DAILY [facility] Last Admin: 08/18/17 07:36 Dose: 1 tab Nystatin (Nystop) 15 gm TOP TID [facility] Last Admin: 08/18/17 10:03 Dose: Not Given Pantoprazole Sodium (Protonix) 40 mg PO ACBREAKFAST [facility] Last Admin: 08/18/17 07:36 Dose: 40 mg Risperidone (Risperidal) 0.5 mg PO BID [facility] Last Admin: 08/18/17 07:35 Dose: 0.5 mg Senna (Senna) 17.2 mg PO BEDTIME [facility] Last Admin: 08/17/17 19:47 Dose: Not Given Sertraline HCl (Zoloft) 50 mg PO DAILY [facility] Last Admin: 08/18/17 07:37 Dose: 50 mg Sodium Chloride (Saline Flush) 10 ml FLUSH ASDIRECTED PRN PRN Reason: Keep Vein Open Last Admin: 08/16/17 15:12 Dose: 10 ml Spironolactone (Aldactone) 12.5 mg PO Q48H [facility] Last Admin: 08/16/17 15:08 Dose: 12.5 mg Discontinued Medications Albuterol/Ipratropium (Duoneb 3.0-0.5 Mg/3 Ml) 3 ml NEB Q4H [facility] Last Admin: 08/14/17 19:18 Dose: 3 ml Calamine/Phenol (Calmoseptine) Confirm Administered Dose 113 gm TOP .STK-MED ONE Stop: 08/18/17 08:44 Last Admin: 08/18/17 09:58 Dose: 1 applic Furosemide (Lasix) 40 mg IVPUSH NOW ONE Stop: 08/14/17 18:58 Last Admin: 08/14/17 19:19 Dose: 40 mg Piperacillin Sod/Tazobactam (Sod 4.5 gm/ Sodium Chloride) 100 mls @ 200 mls/hr IV Q6H [facility] Last Admin: 08/16/17 11:45 Dose: 200 mls/hr Sodium Chloride (Normal Saline) 500 mls @ 30 mls/hr IV ASDIRECTED [facility] Last Admin: 08/16/17 23:03 Dose: 30 mls/hr Vancomycin HCl 1 gm/ Sodium (Chloride) 250 mls @ 200 mls/hr IV DAILY@1000,2200 [facility] Last Admin: 08/17/17 22:14 Dose: 200 mls/hr Vancomycin HCl 1 gm/ Sodium (Chloride) 250 mls @ 200 mls/hr IV ASDIRECTED [facility] Stop: 08/16/17 14:30 Vancomycin HCl 1 gm/ Sodium (Chloride) 250 mls @ 200 mls/hr IV ASDIRECTED [facility] Stop: 08/16/17 16:00 Vancomycin HCl 1 gm/ Sodium (Chloride) 250 mls @ 200 mls/hr IV ASDIRECTED [facility] Stop: 08/16/17 16:00 Last Admin: 08/16/17 15:11 Dose: 200 mls/hr Piperacillin Sod/Tazobactam (Sod 4.5 gm/ Sodium Chloride) 100 mls @ 200 mls/hr IV Q6H [facility] Last Admin: 08/18/17 01:51 Dose: 200 mls/hr Vancomycin HCl (Vancomycin) Confirm Administered Dose 1 gm .ROUTE .STK-MED ONE Stop: 08/17/17 00:32 Last Admin: 08/17/17 01:26 Dose: Not Given - Exam Quality Assessment: Urine Catheter General: Alert, Oriented HEENT: Pupils Equal, Pupils Reactive, EOMI, Mucous Membr. Moist/[place] Neck: Supple Lungs: Normal Respiratory Effort, Decreased Breath Sounds (left lower lobe) Cardiovascular: Regular Rate, Regular Rhythm GI/Abdominal Exam: Normal Bowel Sounds, Soft Extremities: Normal Range of Motion, Non-Tender, No Pedal Edema, Other (Right BKA stump,the surgical wound does have some kin breakdown and new escar formation with erythema, There has been some serosnginous discharge form the suture line.erythema around he suture margin has increased compred to yesterday. ) Skin: Warm - Problem List & Annotations (1) Below knee amputation status SNOMED Code(s): 361768577 Code(s): Z89.519 - ACQUIRED ABSENCE OF UNSPECIFIED LEG BELOW KNEE Status: Acute Priority: High Current Visit: Yes Qualifiers: Laterality: right Qualified Code(s): Z89.511 - Acquired absence of right leg below knee (2) Empyema lung SNOMED Code(s): 099606800 Code(s): J86.9 - PYOTHORAX WITHOUT FISTULA Status: Acute Priority: High Current Visit: Yes (3) Wound infection after surgery SNOMED Code(s): 69124913 Code(s): T81.4XXA - INFECTION FOLLOWING A PROCEDURE, INITIAL ENCOUNTER Status: Acute Priority: High Current Visit: No - Problem List Review Problem List Initiated/Reviewed/Updated: Yes - My Orders Last 24 Hours: My Active Orders 08/18/17 11:15 CULTURE WOUND + SMEAR [RM] Routine - Assessment Assessment:: left lower extremity empyema 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 Discussed pneumonia and the possibility of transfer as needed. At this time patient and would like to try IV antibiotics and measure here at the hospital and monitor for further eval prior to consideration of transfer. We will start Zosyn and continue oral levaquin and wound care daily. F/u labs and CXR in AM. 08/17/17 Afebrile. Status unchanged. the wound is the right BKA slowly healing. No new symptoms over the past 24 hrs.Will continue IV antibiotics . Will repeat CBC in Am and reassess. 08/18/17 Pt is doing better. He has been afebrile and asymptomatic.His short episode of confusion is nonspecific. I dont think he is having stroke or TIA. HE is very alert and at his baseline mental function today. Pt does have decreased air entry to left lower lobe, which could be from his on going pneumonia with possible empyema.He has been on vancomycin and zosyn for it. He does not have any clinical worsening of his symptoms. Will continue present regime and incentive spirometry exercise to expand the lungs. He has developed diarrhea. His white count is stable. This could be antibiotic induced diarrhea. His C-diff is negative. Will continue probiotics and encourage hydration. If he does have frequent and large volume loose stools, might need IV hydration. His right knee stump, is showing changes of skin maceration with increasing erythema and drainage. Wound culture drawn today. Also meanwhile his Vanco through is available and it is low at 12.3 for skin infection. I would like the trough to be [id number] for good tissue concentration. hence I have increased his vancomycin to 1gm TID and will need the trough in 48hrs. will get CBC and BMP in Am. i will discuss the issue with Dr. Jaime munroe and hand over patient care to him on Saturday08/19/17.
[2017-08-18] MEDS: Lactobacillus Acidophilus/Lactobacillus Sporogenes (Probiotic) Tab PO SCH (11:38)
[2017-08-18] MEDS: Acetaminophen/HYDROcodone 325-5 MG Tab PO SCH (11:38)
[2017-08-18] MEDS: Spironolactone 25 MG Tab PO SCH (14:26)
[2017-08-18] MEDS: Sodium Chloride 0.9% 10 ML Syringe FLUSH PRN (16:03)
[2017-08-18] MEDS: Finasteride 5 MG Tab PO SCH (20:30)
[2017-08-18] MEDS: Sennosides 8.6 MG Tab PO SCH (20:31)
[2017-08-18] MEDS: Insulin Detemir 100 Units/ML 3 ML Pen SUBCUT SCH (20:32)
[2017-08-18] MEDS: atorvaSTATin 20 MG Tab PO SCH (21:53)
[2017-08-19] MEDS: Piperacillin/Tazobactam 4.5 GM in Sodium Chloride 0.9% 100 ML IV SCH ×5 (03:08→23:05)
[2017-08-19] MEDS: Pantoprazole 40 MG Tab.CR PO SCH (06:51)
--- NOTE | 2017-08-19 08:50 | PCM.PN ---
- General Info Date of Service: 08/19/17 Subjective Update: Patient states he feels fine today. He was resting comfortably. Patient denies any increased sob, no chest pain, no limb pain. Patient denies any fever or chills. Functional Status: Reports: Tolerating Diet - Review of Systems General: Reports: Weakness HEENT: Reports: No Symptoms Pulmonary: Reports: No Symptoms Cardiovascular: Reports: No Symptoms Gastrointestinal: Reports: No Symptoms Genitourinary: Reports: No Symptoms Musculoskeletal: Reports: No Symptoms Skin: Reports: Other (right lower stump wound has increased discharge over the weekend with worsening area of maceration near the area of dehiscence. Left staple line continues to heal well. Erythema remains stable) - Patient Data Vitals - Most Recent: Last Vital Signs Temp 36.4 C 08/19/17 04:00 Pulse 105 H 08/19/17 04:00 Resp 16 08/19/17 04:00 BP 168/85 H 08/19/17 04:00 Pulse Ox 98 08/19/17 00:00 Weight - Most Recent: 96.6 kg I&O - Last 24 Hours: Intake & Output 08/18/17 08/19/17 08/19/17 22:59 06:59 14:59 Intake Total 1385 570 Output Total 1000 475 Balance 385 95 Lab Results Last 24 Hours: Laboratory Results - last 24 hr 08/18/17 08/18/17 08/19/17 Range/Units 10:00 10:00 07:15 WBC 9.2 7.3 D (4.0-11.0) K/uL RBC 3.54 L 3.38 L (4.50-6.50) M/uL Hgb 10.3 L 9.9 L (13.0-18.0) g/dL Hct 32.8 L 31.3 L (40.0-54.0) % MCV 93 93 (76-96) fL MCH 29.1 29.3 (27.0-32.0) pg MCHC 31.4 31.6 (31.0-35.0) g/dL RDW 14.1 14.2 (11.0-16.0) % Plt Count 213 D 198 (150-400) K/uL MPV 8.9 8.8 (6.0-10.0) fL Neut % (Auto) 77.7 H 59.1 (45.0-70.0) % Lymph % (Auto) 9.3 L 19.0 L (20.0-40.0) % [place] % (Auto) 10.1 H 15.3 H (3.0-10.0) % Eos % (Auto) 2.6 5.9 H (1.0-5.0) % Baso % (Auto) 0.3 0.7 H (0.0-0.5) % Neut # (Auto) 7.15 4.32 (2.00-7.50) K/uL Lymph # (Auto) 0.86 L 1.39 L (1.50-4.00) K/uL [place] # (Auto) 0.93 H 1.12 H (0.20-0.80) K/uL Eos # (Auto) 0.24 0.43 H (0.04-0.40) K/uL Baso # (Auto) 0.03 0.05 (0.02-0.10) K/uL Sodium (136-145) mmol/L Potassium (3.5-5.1) mmol/L Chloride (98-107) mmol/L Carbon Dioxide (21.0-32.0) mmol/L Anion Gap (5.0-15.0) mmol/L BUN (8-26) mg/dL Creatinine (0.70-1.30) mg/dL Est Cr Clr Drug Dosing mL/min Estimated GFR (MDRD) (>60) MLS/MIN BUN/Creatinine Ratio (6-25) Glucose (74-100) mg/dL Calcium (8.5-10.1) mg/dL Vancomycin Trough 12.3 H (5.0-10.0) ug/mL 08/19/17 Range/Units 07:15 WBC (4.0-11.0) K/uL RBC (4.50-6.50) M/uL Hgb (13.0-18.0) g/dL Hct (40.0-54.0) % MCV (76-96) fL MCH (27.0-32.0) pg MCHC (31.0-35.0) g/dL RDW (11.0-16.0) % Plt Count (150-400) K/uL MPV (6.0-10.0) fL Neut % (Auto) (45.0-70.0) % Lymph % (Auto) (20.0-40.0) % [place] % (Auto) (3.0-10.0) % Eos % (Auto) (1.0-5.0) % Baso % (Auto) (0.0-0.5) % Neut # (Auto) (2.00-7.50) K/uL Lymph # (Auto) (1.50-4.00) K/uL [place] # (Auto) (0.20-0.80) K/uL Eos # (Auto) (0.04-0.40) K/uL Baso # (Auto) (0.02-0.10) K/uL Sodium 139 (136-145) mmol/L Potassium 3.6 (3.5-5.1) mmol/L Chloride 103 (98-107) mmol/L Carbon Dioxide 29.8 (21.0-32.0) mmol/L Anion Gap 9.8 (5.0-15.0) mmol/L BUN 6 L D (8-26) mg/dL Creatinine 0.64 L (0.70-1.30) mg/dL Est Cr Clr Drug Dosing 107.78 mL/min Estimated GFR (MDRD) > 60 (>60) MLS/MIN BUN/Creatinine Ratio 9.4 (6-25) Glucose 90 D (74-100) mg/dL Calcium 8.7 (8.5-10.1) mg/dL Vancomycin Trough (5.0-10.0) ug/mL Nicolas Results Last 24 Hours: Microbiology 08/18/17 13:30 Gram Stain - Final Stump - Knee, Right 08/13/17 15:58 Aerobic Blood Culture - Final Blood - Arm, Right NO GROWTH AFTER 5 DAYS Anaerobic Blood Culture - Final NO GROWTH AFTER 5 DAYS 08/13/17 15:30 Aerobic Blood Culture - Final Blood - Arm, Left NO GROWTH AFTER 5 DAYS Anaerobic Blood Culture - Final NO GROWTH AFTER 5 DAYS 08/18/17 10:00 Clostridium difficile (PCR) - Final Stool / Feces Med Orders - Current: Current Medications Acetaminophen (Tylenol) 650 mg PO Q6H PRN PRN Reason: Pain Hydrocodone Bitart/Acetaminophen (Norris 325-5 Mg) 1 tab PO DAILY@1100 P[facility]RO Last Admin: 08/18/17 11:38 Dose: 1 tab Hydrocodone Bitart/Acetaminophen (Norris 325-5 Mg) 1 - 2 tab PO Q6HR PRN PRN Reason: Pain Last Admin: 08/17/17 00:22 Dose: 1 tab Al Hydroxide/Mg Hydroxide (Mag-Al Plus) 30 ml PO BIDMEALS [facility] Last Admin: 08/18/17 18:02 Dose: 30 ml Albuterol/Ipratropium (Duoneb 3.0-0.5 Mg/3 Ml) 3 ml NEB Q4H PRN PRN Reason: Wheezing Atorvastatin Calcium (Lipitor) 20 mg PO BEDTIME [facility] Last Admin: 08/18/17 21:53 Dose: 20 mg Cyclobenzaprine HCl (Flexeril) 10 mg PO TID [facility] Last Admin: 08/18/17 20:31 Dose: 10 mg Diphenhydramine HCl (Benadryl) 50 mg PO Q6H PRN PRN Reason: Itching Dipyridamole/Aspirin (Aggrenox 200-25 Mg) 1 cap PO BID [facility] Last Admin: 08/18/17 20:30 Dose: 1 cap Docusate Sodium (Colace) 100 mg PO BID [facility] Last Admin: 08/18/17 20:31 Dose: 100 mg Fentanyl (Duragesic) 12 mcg TRDERM Q72H [facility] Last Admin: 08/17/17 11:01 Dose: 12 mcg Ferrous Sulfate (Ferrous Sulfate) 325 mg PO BIDMEALS [facility] Last Admin: 08/18/17 18:02 Dose: 325 mg Finasteride (Proscar) 5 mg PO QPM [facility] Last Admin: 08/18/17 20:30 Dose: 5 mg Furosemide (Lasix) 20 mg PO DAILY [facility] Last Admin: 08/18/17 07:37 Dose: 20 mg Gabapentin (Neurontin) 300 mg PO TID [facility] Last Admin: 08/18/17 20:30 Dose: 300 mg Sodium Chloride (Normal Saline) 250 mls @ 30 mls/hr IV ASDIRECTED [facility] Last Admin: 08/16/17 23:04 Dose: 30 mls/hr Piperacillin Sod/Tazobactam (Sod 4.5 gm/ Sodium Chloride) 100 mls @ 200 mls/hr IV Q6H [facility] Last Admin: 08/19/17 06:13 Dose: Not Given Vancomycin HCl 1 gm/ Sodium (Chloride) 250 mls @ 200 mls/hr IV Q8H [facility] Last Admin: 08/19/17 05:00 Dose: 200 mls/hr Insulin Detemir (Levemir) 20 unit SUBCUT BEDTIME [facility] Last Admin: 08/18/17 20:32 Dose: 20 unit Lactobacillus Acidophilus (Acidolphilus Extra Strength) 1 tab PO DAILY@1200 [facility] Last Admin: 08/18/17 11:38 Dose: 1 tab Levofloxacin (Levaquin) 750 mg PO DAILY@1600 [facility] Last Admin: 08/15/17 18:00 Dose: 750 mg Loperamide HCl (Imodium) 2 mg PO Q2H PRN PRN Reason: DIARRHEA Magnesium Hydroxide (Milk Of Magnesia) 30 ml PO DAILY PRN PRN Reason: Constipation Meclizine HCl (Antivert) 25 mg PO DAILY@1100 [facility] Last Admin: 08/18/17 11:39 Dose: 25 mg Meclizine HCl (Antivert) 25 mg PO DAILY PRN PRN Reason: DIZZINESS Miscellaneous Information (Remove Patch) 1 ea TRDERM Q72H [facility] Last Admin: 08/17/17 11:01 Dose: 1 ea Multivitamins/Minerals/Vitamin C (Childrens Chewable Vitamin) 1 tab PO DAILY [facility] Last Admin: 08/18/17 07:36 Dose: 1 tab Nystatin (Nystop) 15 gm TOP TID [facility] Last Admin: 08/18/17 21:53 Dose: 1 applic Pantoprazole Sodium (Protonix) 40 mg PO ACBREAKFAST [facility] Last Admin: 08/19/17 06:51 Dose: 40 mg Risperidone (Risperidal) 0.5 mg PO BID [facility] Last Admin: 08/18/17 20:30 Dose: 0.5 mg Senna (Senna) 17.2 mg PO BEDTIME [facility] Last Admin: 08/18/17 20:31 Dose: 17.2 mg Sertraline HCl (Zoloft) 50 mg PO DAILY [facility] Last Admin: 08/18/17 07:37 Dose: 50 mg Sodium Chloride (Saline Flush) 10 ml FLUSH ASDIRECTED PRN PRN Reason: Keep Vein Open Last Admin: 08/18/17 16:03 Dose: 10 ml Spironolactone (Aldactone) 12.5 mg PO Q48H [facility] Last Admin: 08/18/17 14:26 Dose: 12.5 mg Discontinued Medications Albuterol/Ipratropium (Duoneb 3.0-0.5 Mg/3 Ml) 3 ml NEB Q4H [facility] Last Admin: 08/14/17 19:18 Dose: 3 ml Calamine/Phenol (Calmoseptine) Confirm Administered Dose 113 gm TOP .STK-MED ONE Stop: 08/18/17 08:44 Last Admin: 08/18/17 09:58 Dose: 1 applic Furosemide (Lasix) 40 mg IVPUSH NOW ONE Stop: 08/14/17 18:58 Last Admin: 08/14/17 19:19 Dose: 40 mg Piperacillin Sod/Tazobactam (Sod 4.5 gm/ Sodium Chloride) 100 mls @ 200 mls/hr IV Q6H [facility] Last Admin: 08/18/17 16:31 Dose: Not Given Sodium Chloride (Normal Saline) 500 mls @ 30 mls/hr IV ASDIRECTED [facility] Last Admin: 08/16/17 23:03 Dose: 30 mls/hr Vancomycin HCl 1 gm/ Sodium (Chloride) 250 mls @ 200 mls/hr IV DAILY@1000,2200 [facility] Last Admin: 08/18/17 16:29 Dose: Not Given Vancomycin HCl 1 gm/ Sodium (Chloride) 250 mls @ 200 mls/hr IV ASDIRECTED [facility] Stop: 08/16/17 14:30 Vancomycin HCl 1 gm/ Sodium (Chloride) 250 mls @ 200 mls/hr IV ASDIRECTED [facility] Stop: 08/16/17 16:00 Vancomycin HCl 1 gm/ Sodium (Chloride) 250 mls @ 200 mls/hr IV ASDIRECTED [facility] Stop: 08/16/17 16:00 Last Admin: 08/16/17 15:11 Dose: 200 mls/hr Piperacillin Sod/Tazobactam (Sod 4.5 gm/ Sodium Chloride) 100 mls @ 200 mls/hr IV Q6H [facility] Last Admin: 08/18/17 16:28 Dose: Not Given Vancomycin HCl (Vancomycin) Confirm Administered Dose 1 gm .ROUTE .STK-MED ONE Stop: 08/17/17 00:32 Last Admin: 08/17/17 01:26 Dose: Not Given - Exam General: Alert, Oriented, Cooperative HEENT: Pupils Equal, Pupils Reactive Neck: Supple Lungs: Normal Respiratory Effort, Rhonchi Cardiovascular: Regular Rate, Regular Rhythm GI/Abdominal Exam: Normal Bowel Sounds, Soft, Non-Tender Extremities: Other (right lower stump increased drainage and maceration of the right staple line 2-3cm area and right 1.2cm necrotic tissue stable) - Problem List & Annotations (1) Below knee amputation status SNOMED Code(s): 986763476 Code(s): Z89.519 - ACQUIRED ABSENCE OF UNSPECIFIED LEG BELOW KNEE Status: Acute Priority: High Current Visit: Yes Qualifiers: Laterality: right Qualified Code(s): Z89.511 - Acquired absence of right leg below knee (2) Empyema lung SNOMED Code(s): 776767018 Code(s): J86.9 - PYOTHORAX WITHOUT FISTULA Status: Acute Priority: High Current Visit: Yes (3) Pneumonia SNOMED Code(s): 418787377 Code(s): J18.9 - PNEUMONIA, UNSPECIFIED ORGANISM Status: Acute Priority: High Current Visit: Yes Qualifiers: Pneumonia type: due to unspecified organism (4) Diabetes SNOMED Code(s): 63771165 Code(s): E11.9 - TYPE 2 DIABETES MELLITUS WITHOUT COMPLICATIONS Status: Chronic Priority: High Current Visit: Yes (5) 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 SNOMED Code(s): 74133460 Code(s): I69.359 - HEMIPLGA FOLLOWING CEREBRAL INFARCTION AFFECTING UNSP SIDE Status: Chronic Priority: Medium Current Visit: Yes (6) History of CVA (cerebrovascular accident) SNOMED Code(s): 695099517 Code(s): Z86.73 - PRSNL HX OF TIA (TIA), AND CEREB INFRC W/O RESID DEFICITS Status: Chronic Priority: Medium Current Visit: Yes (7) Wound infection after surgery SNOMED Code(s): 17923804 Code(s): T81.4XXA - INFECTION FOLLOWING A PROCEDURE, INITIAL ENCOUNTER Status: Acute Priority: High Current Visit: No - Problem List Review Problem List Initiated/Reviewed/Updated: Yes - My Orders Last 24 Hours: My Active Orders 08/18/17 11:00 Piperacillin/Tazobactam [Zosyn] 4.5 gm Sodium Chloride 0.9% [Normal Saline] 100 ml IV Q6H 08/18/17 12:00 Vancomycin 1 gm Sodium Chloride 0.9% [Normal Saline] 250 ml IV Q8H 08/19/17 08:20 Chest 1V Frontal [CR] Routine - Assessment Assessment:: left lower extremity empyema 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 Discussed pneumonia and the possibility of transfer as needed. At this time patient and would like to try IV antibiotics and measure here at the hospital and monitor for further eval prior to consideration of transfer. We will start Zosyn and continue oral levaquin and wound care daily. F/u labs and CXR in AM. 08/17/17 Afebrile. Status unchanged. the wound is the right BKA slowly healing. No new symptoms over the past 24 hrs.Will continue IV antibiotics . Will repeat CBC in Am and reassess. 08/18/17 Pt is doing better. He has been afebrile and asymptomatic.His short episode of confusion is nonspecific. I dont think he is having stroke or TIA. HE is very alert and at his baseline mental function today. Pt does have decreased air entry to left lower lobe, which could be from his on going pneumonia with possible empyema.He has been on vancomycin and zosyn for it. He does not have any clinical worsening of his symptoms. Will continue present regime and incentive spirometry exercise to expand the lungs. He has developed diarrhea. His white count is stable. This could be antibiotic induced diarrhea. His C-diff is negative. Will continue probiotics and encourage hydration. If he does have frequent and large volume loose stools, might need IV hydration. His right knee stump, is showing changes of skin maceration with increasing erythema and drainage. Wound culture drawn today. Also meanwhile his Vanco through is available and it is low at 12.3 for skin infection. I would like the trough to be [id number] for good tissue concentration. hence I have increased his vancomycin to 1gm TID and will need the trough in 48hrs. will get CBC and BMP in Am. i will discuss the issue with Dr. Jaime munroe and hand over patient care to him on Saturday08/19/17. 08/19/17 Patient appears stable. Wound of right stump is worse as reported by Dr. Gilbert. There is increased drainage and maceration of right side of staple line. Left side of staple line remains stable and healing well. Discussed vancomycin trough level and increased dosing. Discussed continued follow up and recheck for the next 48hrs for progress. Discussed lung findings - will f/u CXR today. Patient remains afebrile and normal WBC despite known Empyema and cellulitis of stump. We will continue current antibiotics as directed.
[2017-08-19] MEDS: Multivitamin, Childrens Tab.Chew PO SCH (08:57)
[2017-08-19] MEDS: Docusate Sodium 100 MG Cap PO SCH ×2 (08:57→20:05)
[2017-08-19] MEDS: Aluminum Hydroxide/Magnesium Hydroxide/Simethicone Susp 30 ML Cup PO SCH ×2 (08:57→17:29)
[2017-08-19] MEDS: Sertraline 50 MG Tab PO SCH (08:57)
[2017-08-19] MEDS: Gabapentin 300 MG Cap PO SCH ×3 (08:57→20:05)
[2017-08-19] MEDS: Aspirin/Dipyridamole 200-25 MG Cap.ER PO SCH ×2 (08:57→20:04)
[2017-08-19] MEDS: Cyclobenzaprine 10 MG Tab PO SCH ×3 (08:57→20:05)
[2017-08-19] MEDS: risperiDONE 1 MG Tab PO SCH ×2 (08:58→19:59)
[2017-08-19] MEDS: Furosemide 20 MG Tab PO SCH (08:58)
[2017-08-19] MEDS: Nystatin Topical Powder 15 GM Bottle TOP SCH ×3 (08:58→22:24)
[2017-08-19] MEDS: Ferrous Sulfate 325 MG Tab PO SCH ×2 (08:58→17:29)
[2017-08-19] MEDS: Lactobacillus Acidophilus/Lactobacillus Sporogenes (Probiotic) Tab PO SCH (11:46)
[2017-08-19] MEDS: Acetaminophen/HYDROcodone 325-5 MG Tab PO SCH (11:46)
--- NOTE | 2017-08-19 12:53 | CR ---
DATE OF SERVICE: 08/19/2017 CLINICAL DATA: Empyema. AP PORTABLE CHEST: There is a persistent large left pleural effusion that is unchanged. There is persistent dense atelectasis and consolidation of the left mid and lower lung. The heart size is stable. The patient has taken a poor inspiration. The right lung appears relatively clear. The exam is otherwise unchanged from the prior. [id number] MTDD
[2017-08-19] MEDS: Insulin Detemir 100 Units/ML 3 ML Pen SUBCUT SCH (19:55)
[2017-08-19] MEDS: Sennosides 8.6 MG Tab PO SCH (19:59)
[2017-08-19] MEDS: atorvaSTATin 20 MG Tab PO SCH (20:05)
[2017-08-19] MEDS: Finasteride 5 MG Tab PO SCH (20:05)
[2017-08-20] MEDS: Sodium Chloride 0.9% 10 ML Syringe FLUSH PRN (04:29)
[2017-08-20] MEDS: Piperacillin/Tazobactam 4.5 GM in Sodium Chloride 0.9% 100 ML IV SCH ×4 (06:00→22:09)
[2017-08-20] MEDS: Cyclobenzaprine 10 MG Tab PO SCH ×3 (07:52→20:03)
[2017-08-20] MEDS: Aspirin/Dipyridamole 200-25 MG Cap.ER PO SCH ×2 (07:52→20:05)
[2017-08-20] MEDS: Sertraline 50 MG Tab PO SCH (07:52)
[2017-08-20] MEDS: Docusate Sodium 100 MG Cap PO SCH ×2 (07:52→20:04)
[2017-08-20] MEDS: Aluminum Hydroxide/Magnesium Hydroxide/Simethicone Susp 30 ML Cup PO SCH ×2 (07:52→16:24)
[2017-08-20] MEDS: Gabapentin 300 MG Cap PO SCH ×3 (07:52→20:03)
[2017-08-20] MEDS: Pantoprazole 40 MG Tab.CR PO SCH (07:52)
[2017-08-20] MEDS: Furosemide 20 MG Tab PO SCH (07:52)
[2017-08-20] MEDS: Nystatin Topical Powder 15 GM Bottle TOP SCH ×3 (07:53→22:07)
[2017-08-20] MEDS: Multivitamin, Childrens Tab.Chew PO SCH (07:53)
[2017-08-20] MEDS: risperiDONE 1 MG Tab PO SCH ×2 (07:53→20:00)
[2017-08-20] MEDS: Ferrous Sulfate 325 MG Tab PO SCH ×2 (07:53→16:24)
--- NOTE | 2017-08-20 08:58 | PCM.PN ---
- General Info Date of Service: 08/20/17 Subjective Update: This is a 76yo M inpatient with pneumonia complicated by an empyema and cellulitis of his post op right stump staple line. He states he feels the same and denies any worsening symptoms or concerns. Patient denies any pain or sob. There is a family meeting scheduled for Saturday 1pm. To date the plan has been more conservative but to continue parenteral antibiotics for treatment of his pneumonia and cellulitis with continued monitoring of his empyema. - Review of Systems General: Reports: Weakness HEENT: Reports: No Symptoms Pulmonary: Reports: No Symptoms Cardiovascular: Reports: No Symptoms Gastrointestinal: Reports: No Symptoms Musculoskeletal: Reports: Joint Pain Skin: Reports: Other (wound of right stump) Neurological: Reports: No Symptoms - Patient Data Vitals - Most Recent: Last Vital Signs Temp 36.5 C 08/20/17 04:00 Pulse 90 08/19/17 23:55 Resp 15 08/20/17 04:00 BP 129/61 08/19/17 23:55 Pulse Ox 97 08/19/17 23:55 Weight - Most Recent: 96.6 kg I&O - Last 24 Hours: Intake & Output 08/19/17 08/20/17 08/20/17 22:59 06:59 14:59 Intake Total 1110 470 Output Total 675 475 Balance 435 -5 Lab Results Last 24 Hours: Laboratory Results - last 24 hr 08/18/17 08/18/17 08/19/17 Range/Units 06:32 19:45 18:51 POC Glucose 87 145 H 135 H (74-110) mg/dL Nicolas Results Last 24 Hours: Microbiology 08/18/17 13:30 Gram Stain - Final Stump - Knee, Right Wound Culture - Preliminary No Growth Med Orders - Current: Current Medications Acetaminophen (Tylenol) 650 mg PO Q6H PRN PRN Reason: Pain Hydrocodone Bitart/Acetaminophen ([place] 325-5 Mg) 1 tab PO DAILY@1100 [facility] Last Admin: 08/19/17 11:46 Dose: 1 tab Hydrocodone Bitart/Acetaminophen ([place] 325-5 Mg) 1 - 2 tab PO Q6HR PRN PRN Reason: Pain Last Admin: 08/17/17 00:22 Dose: 1 tab Al Hydroxide/Mg Hydroxide (Mag-Al Plus) 30 ml PO BIDMEALS [facility] Last Admin: 08/20/17 07:52 Dose: 30 ml Albuterol/Ipratropium (Duoneb 3.0-0.5 Mg/3 Ml) 3 ml NEB Q4H PRN PRN Reason: Wheezing Atorvastatin Calcium (Lipitor) 20 mg PO BEDTIME [facility] Last Admin: 08/19/17 20:05 Dose: 20 mg Cyclobenzaprine HCl (Flexeril) 10 mg PO TID [facility] Last Admin: 08/20/17 07:52 Dose: 10 mg Diphenhydramine HCl (Benadryl) 50 mg PO Q6H PRN PRN Reason: Itching Dipyridamole/Aspirin (Aggrenox 200-25 Mg) 1 cap PO BID [facility] Last Admin: 08/20/17 07:52 Dose: 1 cap Docusate Sodium (Colace) 100 mg PO BID [facility] Last Admin: 08/20/17 07:52 Dose: 100 mg Fentanyl (Duragesic) 12 mcg TRDERM Q72H [facility] Last Admin: 08/17/17 11:01 Dose: 12 mcg Ferrous Sulfate (Ferrous Sulfate) 325 mg PO BIDMEALS [facility] Last Admin: 08/20/17 07:53 Dose: 325 mg Finasteride (Proscar) 5 mg PO QPM [facility] Last Admin: 08/19/17 20:05 Dose: 5 mg Furosemide (Lasix) 20 mg PO DAILY [facility] Last Admin: 08/20/17 07:52 Dose: 20 mg Gabapentin (Neurontin) 300 mg PO TID [facility] Last Admin: 08/20/17 07:52 Dose: 300 mg Sodium Chloride (Normal Saline) 250 mls @ 30 mls/hr IV ASDIRECTED [facility] Last Admin: 08/16/17 23:04 Dose: 30 mls/hr Piperacillin Sod/Tazobactam (Sod 4.5 gm/ Sodium Chloride) 100 mls @ 200 mls/hr IV Q6H [facility] Last Admin: 08/20/17 06:00 Dose: 200 mls/hr Vancomycin HCl 1 gm/ Sodium (Chloride) 250 mls @ 200 mls/hr IV Q8H [facility] Last Admin: 08/20/17 04:38 Dose: 200 mls/hr Insulin Detemir (Levemir) 20 unit SUBCUT BEDTIME [facility] Last Admin: 08/19/17 19:55 Dose: 20 unit Lactobacillus Acidophilus (Acidolphilus Extra Strength) 1 tab PO DAILY@1200 [facility] Last Admin: 08/19/17 11:46 Dose: 1 tab Levofloxacin (Levaquin) 750 mg PO DAILY@1600 [facility] Last Admin: 08/15/17 18:00 Dose: 750 mg Loperamide HCl (Imodium) 2 mg PO Q2H PRN PRN Reason: DIARRHEA Magnesium Hydroxide (Milk Of Magnesia) 30 ml PO DAILY PRN PRN Reason: Constipation Meclizine HCl (Antivert) 25 mg PO DAILY@1100 [facility] Last Admin: 08/19/17 11:46 Dose: 25 mg Meclizine HCl (Antivert) 25 mg PO DAILY PRN PRN Reason: DIZZINESS Miscellaneous Information (Remove Patch) 1 ea TRDERM Q72H [facility] Last Admin: 08/17/17 11:01 Dose: 1 ea Multivitamins/Minerals/Vitamin C (Childrens Chewable Vitamin) 1 tab PO DAILY [facility] Last Admin: 08/20/17 07:53 Dose: 1 tab Nystatin (Nystop) 15 gm TOP TID [facility] Last Admin: 08/20/17 07:53 Dose: 1 applic Pantoprazole Sodium (Protonix) 40 mg PO ACBREAKFAST [facility] Last Admin: 08/20/17 07:52 Dose: 40 mg Risperidone (Risperidal) 0.5 mg PO BID [facility] Last Admin: 08/20/17 07:53 Dose: 0.5 mg Senna (Senna) 17.2 mg PO BEDTIME [facility] Last Admin: 08/19/17 19:59 Dose: 17.2 mg Sertraline HCl (Zoloft) 50 mg PO DAILY [facility] Last Admin: 08/20/17 07:52 Dose: 50 mg Sodium Chloride (Saline Flush) 10 ml FLUSH ASDIRECTED PRN PRN Reason: Keep Vein Open Last Admin: 08/20/17 04:29 Dose: 10 ml Spironolactone (Aldactone) 12.5 mg PO Q48H [facility] Last Admin: 08/18/17 14:26 Dose: 12.5 mg Discontinued Medications Albuterol/Ipratropium (Duoneb 3.0-0.5 Mg/3 Ml) 3 ml NEB Q4H [facility] Last Admin: 08/14/17 19:18 Dose: 3 ml Calamine/Phenol (Calmoseptine) Confirm Administered Dose 113 gm TOP .STK-MED ONE Stop: 08/18/17 08:44 Last Admin: 08/18/17 09:58 Dose: 1 applic Furosemide (Lasix) 40 mg IVPUSH NOW ONE Stop: 08/14/17 18:58 Last Admin: 08/14/17 19:19 Dose: 40 mg Piperacillin Sod/Tazobactam (Sod 4.5 gm/ Sodium Chloride) 100 mls @ 200 mls/hr IV Q6H [facility] Last Admin: 08/18/17 16:31 Dose: Not Given Sodium Chloride (Normal Saline) 500 mls @ 30 mls/hr IV ASDIRECTED [facility] Last Admin: 08/16/17 23:03 Dose: 30 mls/hr Vancomycin HCl 1 gm/ Sodium (Chloride) 250 mls @ 200 mls/hr IV DAILY@1000,2200 [facility] Last Admin: 08/18/17 16:29 Dose: Not Given Vancomycin HCl 1 gm/ Sodium (Chloride) 250 mls @ 200 mls/hr IV ASDIRECTED [facility] Stop: 08/16/17 14:30 Vancomycin HCl 1 gm/ Sodium (Chloride) 250 mls @ 200 mls/hr IV ASDIRECTED [facility] Stop: 08/16/17 16:00 Vancomycin HCl 1 gm/ Sodium (Chloride) 250 mls @ 200 mls/hr IV ASDIRECTED [facility] Stop: 08/16/17 16:00 Last Admin: 08/16/17 15:11 Dose: 200 mls/hr Piperacillin Sod/Tazobactam (Sod 4.5 gm/ Sodium Chloride) 100 mls @ 200 mls/hr IV Q6H [facility] Last Admin: 08/18/17 16:28 Dose: Not Given Vancomycin HCl 1 gm/ Sodium (Chloride) 250 mls @ 200 mls/hr IV Q8H [facility] Last Admin: 08/19/17 05:00 Dose: 200 mls/hr Vancomycin HCl (Vancomycin) Confirm Administered Dose 1 gm .ROUTE .STK-MED ONE Stop: 08/17/17 00:32 Last Admin: 08/17/17 01:26 Dose: Not Given - Exam General: Alert, Oriented HEENT: Pupils Equal, Pupils Reactive, EOMI Neck: Supple Lungs: Decreased Breath Sounds, Rhonchi Cardiovascular: Regular Rate, Regular Rhythm GI/Abdominal Exam: Normal Bowel Sounds, Soft, Non-Tender Extremities: Other Skin: Other (right wound of stump improved from yesterday. Escar of necrotic tissue of right dog ear slightly enlarged at 1.3x1.3cm) Psy/Mental Status: Alert, Normal Affect - Problem List & Annotations (1) Below knee amputation status SNOMED Code(s): 180576352 Code(s): Z89.519 - ACQUIRED ABSENCE OF UNSPECIFIED LEG BELOW KNEE Status: Acute Priority: High Current Visit: Yes Qualifiers: Laterality: right Qualified Code(s): Z89.511 - Acquired absence of right leg below knee (2) Empyema lung SNOMED Code(s): 111581763 Code(s): J86.9 - PYOTHORAX WITHOUT FISTULA Status: Acute Priority: High Current Visit: Yes (3) Pneumonia SNOMED Code(s): 717692523 Code(s): J18.9 - PNEUMONIA, UNSPECIFIED ORGANISM Status: Acute Priority: High Current Visit: Yes Qualifiers: Pneumonia type: due to unspecified organism (4) Diabetes SNOMED Code(s): 48267453 Code(s): E11.9 - TYPE 2 DIABETES MELLITUS WITHOUT COMPLICATIONS Status: Chronic Priority: High Current Visit: Yes (5) 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 SNOMED Code(s): 26412353 Code(s): I69.359 - HEMIPLGA FOLLOWING CEREBRAL INFARCTION AFFECTING UNSP SIDE Status: Chronic Priority: Medium Current Visit: Yes (6) History of CVA (cerebrovascular accident) SNOMED Code(s): 155107896 Code(s): Z86.73 - PRSNL HX OF TIA (TIA), AND CEREB INFRC W/O RESID DEFICITS Status: Chronic Priority: Medium Current Visit: Yes (7) Wound infection after surgery SNOMED Code(s): 98304221 Code(s): T81.4XXA - INFECTION FOLLOWING A PROCEDURE, INITIAL ENCOUNTER Status: Acute Priority: High Current Visit: No - Problem List Review Problem List Initiated/Reviewed/Updated: Yes - My Orders Last 24 Hours: My Active Orders 08/19/17 11:50 Vancomycin 1 gm Sodium Chloride 0.9% [Normal Saline] 250 ml IV Q8H 08/21/17 05:11 BASIC METABOLIC PANEL,BMP [CHEM] AM CBC WITH AUTO DIFF [HEME] AM - Assessment Assessment:: left lower extremity empyema 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 Discussed pneumonia and the possibility of transfer as needed. At this time patient and would like to try IV antibiotics and measure here at the hospital and monitor for further eval prior to consideration of transfer. We will start Zosyn and continue oral levaquin and wound care daily. F/u labs and CXR in AM. 08/17/17 Afebrile. Status unchanged. the wound is the right BKA slowly healing. No new symptoms over the past 24 hrs.Will continue IV antibiotics . Will repeat CBC in Am and reassess. 08/18/17 Pt is doing better. He has been afebrile and asymptomatic.His short episode of confusion is nonspecific. I dont think he is having stroke or TIA. HE is very alert and at his baseline mental function today. Pt does have decreased air entry to left lower lobe, which could be from his on going pneumonia with possible empyema.He has been on vancomycin and zosyn for it. He does not have any clinical worsening of his symptoms. Will continue present regime and incentive spirometry exercise to expand the lungs. He has developed diarrhea. His white count is stable. This could be antibiotic induced diarrhea. His C-diff is negative. Will continue probiotics and encourage hydration. If he does have frequent and large volume loose stools, might need IV hydration. His right knee stump, is showing changes of skin maceration with increasing erythema and drainage. Wound culture drawn today. Also meanwhile his Vanco through is available and it is low at 12.3 for skin infection. I would like the trough to be [id number] for good tissue concentration. hence I have increased his vancomycin to 1gm TID and will need the trough in 48hrs. will get CBC and BMP in Am. i will discuss the issue with Dr. Jaime munroe and hand over patient care to him on Saturday08/19/17. 08/19/17 Patient appears stable. Wound of right stump is worse as reported by Dr. Gilbert. There is increased drainage and maceration of right side of staple line. Left side of staple line remains stable and healing well. Discussed vancomycin trough level and increased dosing. Discussed continued follow up and recheck for the next 48hrs for progress. Discussed lung findings - will f/u CXR today. Patient remains afebrile and normal WBC despite known Empyema and cellulitis of stump. We will continue current antibiotics as directed. 08/20/17 Improved wound of stump. Elvin PT/wound care will debride today. Continue current antibiotics. No changes. Labs in AM. CT chest f/u for empyema on Saturday AM.
[2017-08-20] MEDS: Acetaminophen/HYDROcodone 325-5 MG Tab PO SCH (10:53)
[2017-08-20] MEDS: Lactobacillus Acidophilus/Lactobacillus Sporogenes (Probiotic) Tab PO SCH (11:24)
[2017-08-20] MEDS: fentaNYL 12 MCG/HR Transdermal Patch TRDERM SCH (11:26)
[2017-08-20] MEDS: Spironolactone 25 MG Tab PO SCH (11:27)
[2017-08-20] MEDS: Sodium Chloride 0.9% 250 ML IV SCH (16:38)
[2017-08-20] MEDS: Acetaminophen/HYDROcodone 325-5 MG Tab PO PRN (20:01)
[2017-08-20] MEDS: atorvaSTATin 20 MG Tab PO SCH (20:01)
[2017-08-20] MEDS: Finasteride 5 MG Tab PO SCH (20:03)
[2017-08-20] MEDS: Sennosides 8.6 MG Tab PO SCH (20:04)
[2017-08-20] MEDS: Insulin Detemir 100 Units/ML 3 ML Pen SUBCUT SCH (20:06)
[2017-08-21] MEDS: Piperacillin/Tazobactam 4.5 GM in Sodium Chloride 0.9% 100 ML IV SCH ×4 (04:56→22:04)
[2017-08-21] MEDS: Pantoprazole 40 MG Tab.CR PO SCH (06:33)
[2017-08-21] MEDS: Aluminum Hydroxide/Magnesium Hydroxide/Simethicone Susp 30 ML Cup PO SCH ×2 (08:00→18:10)
[2017-08-21] MEDS: Multivitamin, Childrens Tab.Chew PO SCH (08:01)
[2017-08-21] MEDS: Aspirin/Dipyridamole 200-25 MG Cap.ER PO SCH ×2 (08:01→20:02)
[2017-08-21] MEDS: Gabapentin 300 MG Cap PO SCH ×3 (08:01→20:01)
[2017-08-21] MEDS: Nystatin Topical Powder 15 GM Bottle TOP SCH ×3 (08:01→20:03)
[2017-08-21] MEDS: Ferrous Sulfate 325 MG Tab PO SCH ×2 (08:01→18:10)
[2017-08-21] MEDS: Sertraline 50 MG Tab PO SCH (08:01)
[2017-08-21] MEDS: Cyclobenzaprine 10 MG Tab PO SCH ×3 (08:01→20:02)
[2017-08-21] MEDS: Docusate Sodium 100 MG Cap PO SCH ×2 (08:01→20:02)
[2017-08-21] MEDS: Furosemide 20 MG Tab PO SCH (08:01)
[2017-08-21] MEDS: risperiDONE 1 MG Tab PO SCH ×2 (08:01→20:00)
[2017-08-21] MEDS: Acetaminophen/HYDROcodone 325-5 MG Tab PO SCH (12:12)
[2017-08-21] MEDS: Lactobacillus Acidophilus/Lactobacillus Sporogenes (Probiotic) Tab PO SCH (12:28)
--- NOTE | 2017-08-21 16:46 | PCM.PN ---
- General Info Date of Service: 08/21/17 Subjective Update: Patient states he feels improved today. He denies any discomfort or pain at this time. He is eating well. Functional Status: Reports: Pain Controlled, Tolerating Diet - Review of Systems HEENT: Reports: No Symptoms Pulmonary: Reports: No Symptoms Cardiovascular: Reports: No Symptoms Gastrointestinal: Reports: No Symptoms Musculoskeletal: Reports: No Symptoms Skin: Reports: Other (improved erythema and decreased drainage of right staple line) Neurological: Reports: Pre-Existing Deficit - Patient Data Vitals - Most Recent: Last Vital Signs Temp 36.5 C 08/21/17 12:00 Pulse 98 08/21/17 12:00 Resp 20 08/21/17 12:00 BP 152/71 H 08/21/17 12:00 Pulse Ox 99 08/21/17 12:00 Weight - Most Recent: 96.6 kg I&O - Last 24 Hours: Intake & Output 08/21/17 08/21/17 08/21/17 06:59 14:59 22:59 Intake Total 940 Output Total 1025 Balance -85 Lab Results Last 24 Hours: Laboratory Results - last 24 hr 08/20/17 08/21/17 08/21/17 Range/Units 18:58 06:37 07:45 WBC 9.2 D (4.0-11.0) K/uL RBC 2.97 L (4.50-6.50) M/uL Hgb 8.9 L (13.0-18.0) g/dL Hct 28.8 L (40.0-54.0) % MCV 97 H (76-96) fL MCH 30.0 (27.0-32.0) pg MCHC 30.9 L (31.0-35.0) g/dL RDW 14.1 (11.0-16.0) % Plt Count 139 L D (150-400) K/uL MPV 10.8 H (6.0-10.0) fL Neut % (Auto) 65.3 (45.0-70.0) % Lymph % (Auto) 12.9 L (20.0-40.0) % [place] % (Auto) 11.6 H (3.0-10.0) % Eos % (Auto) 9.5 H (1.0-5.0) % Baso % (Auto) 0.7 H (0.0-0.5) % Neut # (Auto) 6.02 (2.00-7.50) K/uL Lymph # (Auto) 1.19 L (1.50-4.00) K/uL [place] # (Auto) 1.07 H (0.20-0.80) K/uL Eos # (Auto) 0.88 H (0.04-0.40) K/uL Baso # (Auto) 0.06 (0.02-0.10) K/uL Sodium (136-145) mmol/L Potassium (3.5-5.1) mmol/L Chloride (98-107) mmol/L Carbon Dioxide (21.0-32.0) mmol/L Anion Gap (5.0-15.0) mmol/L BUN (8-26) mg/dL Creatinine (0.70-1.30) mg/dL Est Cr Clr Drug Dosing mL/min Estimated GFR (MDRD) (>60) MLS/MIN BUN/Creatinine Ratio (6-25) Glucose (74-100) mg/dL POC Glucose 319 H 89 (74-110) mg/dL Calcium (8.5-10.1) mg/dL Vancomycin Trough (10.0-15.0) ug/mL 08/21/17 08/21/17 Range/Units 07:45 11:55 WBC (4.0-11.0) K/uL RBC (4.50-6.50) M/uL Hgb (13.0-18.0) g/dL Hct (40.0-54.0) % MCV (76-96) fL MCH (27.0-32.0) pg MCHC (31.0-35.0) g/dL RDW (11.0-16.0) % Plt Count (150-400) K/uL MPV (6.0-10.0) fL Neut % (Auto) (45.0-70.0) % Lymph % (Auto) (20.0-40.0) % [place] % (Auto) (3.0-10.0) % Eos % (Auto) (1.0-5.0) % Baso % (Auto) (0.0-0.5) % Neut # (Auto) (2.00-7.50) K/uL Lymph # (Auto) (1.50-4.00) K/uL [place] # (Auto) (0.20-0.80) K/uL Eos # (Auto) (0.04-0.40) K/uL Baso # (Auto) (0.02-0.10) K/uL Sodium 131 L (136-145) mmol/L Potassium 3.3 L (3.5-5.1) mmol/L Chloride 103 (98-107) mmol/L Carbon Dioxide 27.5 (21.0-32.0) mmol/L Anion Gap 3.8 L (5.0-15.0) mmol/L BUN 7 L (8-26) mg/dL Creatinine 0.71 (0.70-1.30) mg/dL Est Cr Clr Drug Dosing 97.15 mL/min Estimated GFR (MDRD) > 60 (>60) MLS/MIN BUN/Creatinine Ratio 9.9 (6-25) Glucose 57 L D (74-100) mg/dL POC Glucose (74-110) mg/dL Calcium 8.4 L (8.5-10.1) mg/dL Vancomycin Trough 29.2 H (10.0-15.0) ug/mL Nicolas Results Last 24 Hours: Microbiology 08/18/17 13:30 Gram Stain - Final Stump - Knee, Right Wound Culture - Final NO GROWTH AFTER 3 DAYS Med Orders - Current: Current Medications Acetaminophen (Tylenol) 650 mg PO Q6H PRN PRN Reason: Pain Hydrocodone Bitart/Acetaminophen ([place] 325-5 Mg) 1 tab PO DAILY@1100 [facility] Last Admin: 08/21/17 12:12 Dose: 1 tab Hydrocodone Bitart/Acetaminophen ([place] 325-5 Mg) 1 - 2 tab PO Q6HR PRN PRN Reason: Pain Last Admin: 08/20/17 20:01 Dose: 2 tab Al Hydroxide/Mg Hydroxide (Mag-Al Plus) 30 ml PO BIDMEALS [facility] Last Admin: 08/21/17 08:00 Dose: 30 ml Albuterol/Ipratropium (Duoneb 3.0-0.5 Mg/3 Ml) 3 ml NEB Q4H PRN PRN Reason: Wheezing Atorvastatin Calcium (Lipitor) 20 mg PO BEDTIME [facility] Last Admin: 08/20/17 20:01 Dose: 20 mg Cyclobenzaprine HCl (Flexeril) 10 mg PO TID [facility] Last Admin: 08/21/17 13:43 Dose: 10 mg Diphenhydramine HCl (Benadryl) 50 mg PO Q6H PRN PRN Reason: Itching Dipyridamole/Aspirin (Aggrenox 200-25 Mg) 1 cap PO BID [facility] Last Admin: 08/21/17 08:01 Dose: 1 cap Docusate Sodium (Colace) 100 mg PO BID [facility] Last Admin: 08/21/17 08:01 Dose: 100 mg Fentanyl (Duragesic) 12 mcg TRDERM Q72H [facility] Last Admin: 08/20/17 11:26 Dose: 12 mcg Ferrous Sulfate (Ferrous Sulfate) 325 mg PO BIDMEALS [facility] Last Admin: 08/21/17 08:01 Dose: 325 mg Finasteride (Proscar) 5 mg PO QPM [facility] Last Admin: 08/20/17 20:03 Dose: 5 mg Furosemide (Lasix) 20 mg PO DAILY [facility] Last Admin: 08/21/17 08:01 Dose: 20 mg Gabapentin (Neurontin) 300 mg PO TID [facility] Last Admin: 08/21/17 13:43 Dose: 300 mg Sodium Chloride (Normal Saline) 250 mls @ 30 mls/hr IV ASDIRECTED [facility] Last Admin: 08/20/17 16:38 Dose: 30 mls/hr Piperacillin Sod/Tazobactam (Sod 4.5 gm/ Sodium Chloride) 100 mls @ 200 mls/hr IV Q6H [facility] Last Admin: 08/21/17 12:14 Dose: 200 mls/hr Vancomycin HCl 1,250 gm/ (Sodium Chloride) 250 mls @ 200 mls/hr IV BID@0900, 2100 [facility] Insulin Detemir (Levemir) 20 unit SUBCUT BEDTIME [facility] Last Admin: 08/20/17 20:06 Dose: 20 unit Lactobacillus Acidophilus (Acidolphilus Extra Strength) 1 tab PO DAILY@1200 [facility] Last Admin: 08/21/17 12:28 Dose: 1 tab Levofloxacin (Levaquin) 750 mg PO DAILY@1600 [facility] Last Admin: 08/15/17 18:00 Dose: 750 mg Loperamide HCl (Imodium) 2 mg PO Q2H PRN PRN Reason: DIARRHEA Magnesium Hydroxide (Milk Of Magnesia) 30 ml PO DAILY PRN PRN Reason: Constipation Meclizine HCl (Antivert) 25 mg PO DAILY@1100 [facility] Last Admin: 08/21/17 12:14 Dose: 25 mg Meclizine HCl (Antivert) 25 mg PO DAILY PRN PRN Reason: DIZZINESS Miscellaneous Information (Remove Patch) 1 ea TRDERM Q72H [facility] Last Admin: 08/20/17 13:19 Dose: 1 ea Multivitamins/Minerals/Vitamin C (Childrens Chewable Vitamin) 1 tab PO DAILY [facility] Last Admin: 08/21/17 08:01 Dose: 1 tab Nystatin (Nystop) 15 gm TOP TID [facility] Last Admin: 08/21/17 14:11 Dose: 1 applic Pantoprazole Sodium (Protonix) 40 mg PO ACBREAKFAST [facility] Last Admin: 08/21/17 06:33 Dose: 40 mg Risperidone (Risperidal) 0.5 mg PO BID [facility] Last Admin: 08/21/17 08:01 Dose: 0.5 mg Senna (Senna) 17.2 mg PO BEDTIME [facility] Last Admin: 08/20/17 20:04 Dose: 17.2 mg Sertraline HCl (Zoloft) 50 mg PO DAILY [facility] Last Admin: 08/21/17 08:01 Dose: 50 mg Sodium Chloride (Saline Flush) 10 ml FLUSH ASDIRECTED PRN PRN Reason: Keep Vein Open Last Admin: 08/20/17 04:29 Dose: 10 ml Spironolactone (Aldactone) 12.5 mg PO Q48H [facility] Last Admin: 08/20/17 11:27 Dose: 12.5 mg Discontinued Medications Albuterol/Ipratropium (Duoneb 3.0-0.5 Mg/3 Ml) 3 ml NEB Q4H [facility] Last Admin: 08/14/17 19:18 Dose: 3 ml Calamine/Phenol (Calmoseptine) Confirm Administered Dose 113 gm TOP .STK-MED ONE Stop: 08/18/17 08:44 Last Admin: 08/18/17 09:58 Dose: 1 applic Furosemide (Lasix) 40 mg IVPUSH NOW ONE Stop: 08/14/17 18:58 Last Admin: 08/14/17 19:19 Dose: 40 mg Piperacillin Sod/Tazobactam (Sod 4.5 gm/ Sodium Chloride) 100 mls @ 200 mls/hr IV Q6H [facility] Last Admin: 08/18/17 16:31 Dose: Not Given Sodium Chloride (Normal Saline) 500 mls @ 30 mls/hr IV ASDIRECTED [facility] Last Admin: 08/16/17 23:03 Dose: 30 mls/hr Vancomycin HCl 1 gm/ Sodium (Chloride) 250 mls @ 200 mls/hr IV DAILY@1000,2200 [facility] Last Admin: 08/18/17 16:29 Dose: Not Given Vancomycin HCl 1 gm/ Sodium (Chloride) 250 mls @ 200 mls/hr IV ASDIRECTED [facility] Stop: 08/16/17 14:30 Vancomycin HCl 1 gm/ Sodium (Chloride) 250 mls @ 200 mls/hr IV ASDIRECTED [facility] Stop: 08/16/17 16:00 Vancomycin HCl 1 gm/ Sodium (Chloride) 250 mls @ 200 mls/hr IV ASDIRECTED [facility] Stop: 08/16/17 16:00 Last Admin: 08/16/17 15:11 Dose: 200 mls/hr Piperacillin Sod/Tazobactam (Sod 4.5 gm/ Sodium Chloride) 100 mls @ 200 mls/hr IV Q6H [facility] Last Admin: 08/18/17 16:28 Dose: Not Given Vancomycin HCl 1 gm/ Sodium (Chloride) 250 mls @ 200 mls/hr IV Q8H [facility] Last Admin: 08/19/17 05:00 Dose: 200 mls/hr Vancomycin HCl 1 gm/ Sodium (Chloride) 250 mls @ 200 mls/hr IV Q8H [facility] Last Admin: 08/21/17 03:16 Dose: 200 mls/hr Vancomycin HCl (Vancomycin) Confirm Administered Dose 1 gm .ROUTE .STK-MED ONE Stop: 08/17/17 00:32 Last Admin: 08/17/17 01:26 Dose: Not Given - Exam General: Alert, Oriented, Cooperative HEENT: Pupils Equal, Pupils Reactive Neck: Supple Lungs: Normal Respiratory Effort, Decreased Breath Sounds, Rhonchi Cardiovascular: Regular Rate, Regular Rhythm GI/Abdominal Exam: Normal Bowel Sounds Extremities: Other (improved wound and resolving cellulitis) - Problem List & Annotations (1) Below knee amputation status SNOMED Code(s): 078557842 Code(s): Z89.519 - ACQUIRED ABSENCE OF UNSPECIFIED LEG BELOW KNEE Status: Acute Priority: High Current Visit: Yes Qualifiers: Laterality: right Qualified Code(s): Z89.511 - Acquired absence of right leg below knee (2) Empyema lung SNOMED Code(s): 003980201 Code(s): J86.9 - PYOTHORAX WITHOUT FISTULA Status: Acute Priority: High Current Visit: Yes (3) Pneumonia SNOMED Code(s): 332879432 Code(s): J18.9 - PNEUMONIA, UNSPECIFIED ORGANISM Status: Acute Priority: High Current Visit: Yes Qualifiers: Pneumonia type: due to unspecified organism (4) Diabetes SNOMED Code(s): 56792193 Code(s): E11.9 - TYPE 2 DIABETES MELLITUS WITHOUT COMPLICATIONS Status: Chronic Priority: High Current Visit: Yes (5) 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 SNOMED Code(s): 38578866 Code(s): I69.359 - HEMIPLGA FOLLOWING CEREBRAL INFARCTION AFFECTING UNSP SIDE Status: Chronic Priority: Medium Current Visit: Yes (6) History of CVA (cerebrovascular accident) SNOMED Code(s): 377019089 Code(s): Z86.73 - PRSNL HX OF TIA (TIA), AND CEREB INFRC W/O RESID DEFICITS Status: Chronic Priority: Medium Current Visit: Yes (7) Wound infection after surgery SNOMED Code(s): 41301373 Code(s): T81.4XXA - INFECTION FOLLOWING A PROCEDURE, INITIAL ENCOUNTER Status: Acute Priority: High Current Visit: No - Problem List Review Problem List Initiated/Reviewed/Updated: Yes - My Orders Last 24 Hours: My Active Orders 08/22/17 09:00 Vancomycin 1,250 gm Sodium Chloride 0.9% [Normal Saline] 250 ml IV BID@0900, 2100 08/23/17 08:30 Chest w Cont [CT] Routine - Assessment Assessment:: left lower extremity empyema 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 Discussed pneumonia and the possibility of transfer as needed. At this time patient and would like to try IV antibiotics and measure here at the hospital and monitor for further eval prior to consideration of transfer. We will start Zosyn and continue oral levaquin and wound care daily. F/u labs and CXR in AM. 08/17/17 Afebrile. Status unchanged. the wound is the right BKA slowly healing. No new symptoms over the past 24 hrs.Will continue IV antibiotics . Will repeat CBC in Am and reassess. 08/18/17 Pt is doing better. He has been afebrile and asymptomatic.His short episode of confusion is nonspecific. I dont think he is having stroke or TIA. HE is very alert and at his baseline mental function today. Pt does have decreased air entry to left lower lobe, which could be from his on going pneumonia with possible empyema.He has been on vancomycin and zosyn for it. He does not have any clinical worsening of his symptoms. Will continue present regime and incentive spirometry exercise to expand the lungs. He has developed diarrhea. His white count is stable. This could be antibiotic induced diarrhea. His C-diff is negative. Will continue probiotics and encourage hydration. If he does have frequent and large volume loose stools, might need IV hydration. His right knee stump, is showing changes of skin maceration with increasing erythema and drainage. Wound culture drawn today. Also meanwhile his Vanco through is available and it is low at 12.3 for skin infection. I would like the trough to be -28 for good tissue concentration. hence I have increased his vancomycin to 1gm TID and will need the trough in 48hrs. will get CBC and BMP in Am. i will discuss the issue with Dr. Jaime munroe and hand over patient care to him on Saturday08/19/17. 08/19/17 Patient appears stable. Wound of right stump is worse as reported by Dr. Gilbert. There is increased drainage and maceration of right side of staple line. Left side of staple line remains stable and healing well. Discussed vancomycin trough level and increased dosing. Discussed continued follow up and recheck for the next 48hrs for progress. Discussed lung findings - will f/u CXR today. Patient remains afebrile and normal WBC despite known Empyema and cellulitis of stump. We will continue current antibiotics as directed. 08/20/17 Improved wound of stump. Elvin PT/wound care will debride today. Continue current antibiotics. No changes. Labs in AM. CT chest f/u for empyema on Saturday. 08/21/17 Continual improvement of staple like wound. Decreased drainage and erythema. Gradual improvement. Recheck Vancomycin trough - discussed with Pharmacy. F/u in AM.
[2017-08-21] MEDS: Sennosides 8.6 MG Tab PO SCH (20:01)
[2017-08-21] MEDS: atorvaSTATin 20 MG Tab PO SCH (20:02)
[2017-08-21] MEDS: Finasteride 5 MG Tab PO SCH (20:03)
[2017-08-21] MEDS: Insulin Detemir 100 Units/ML 3 ML Pen SUBCUT SCH (20:04)
[2017-08-22] MEDS: Pantoprazole 40 MG Tab.CR PO SCH ×2 (05:43→09:25)
[2017-08-22] MEDS: Piperacillin/Tazobactam 4.5 GM in Sodium Chloride 0.9% 100 ML IV SCH ×4 (05:44→23:36)
[2017-08-22] MEDS: Sodium Chloride 0.9% 250 ML IV SCH (05:47)
[2017-08-22] MEDS ORDERED: Sodium Chloride 0.9% 1,000 ML IV SCH (08:30)
[2017-08-22] MEDS ORDERED: Sodium Chloride 0.9% with KCl 1,000 ML IV SCH (08:30)
[2017-08-22] MEDS: Multivitamin, Childrens Tab.Chew PO SCH (09:21)
[2017-08-22] MEDS: Cyclobenzaprine 10 MG Tab PO SCH ×3 (09:21→20:29)
[2017-08-22] MEDS: Sertraline 50 MG Tab PO SCH (09:21)
[2017-08-22] MEDS: Aspirin/Dipyridamole 200-25 MG Cap.ER PO SCH ×2 (09:21→20:30)
[2017-08-22] MEDS: Ferrous Sulfate 325 MG Tab PO SCH ×2 (09:21→18:37)
[2017-08-22] MEDS: risperiDONE 1 MG Tab PO SCH ×2 (09:21→20:29)
[2017-08-22] MEDS: Gabapentin 300 MG Cap PO SCH ×3 (09:22→20:30)
[2017-08-22] MEDS: Aluminum Hydroxide/Magnesium Hydroxide/Simethicone Susp 30 ML Cup PO SCH ×2 (09:22→18:37)
[2017-08-22] MEDS: Nystatin Topical Powder 15 GM Bottle TOP SCH ×3 (09:22→20:30)
[2017-08-22] MEDS: Furosemide 20 MG Tab PO SCH (09:22)
[2017-08-22] MEDS: Docusate Sodium 100 MG Cap PO SCH ×2 (09:22→20:30)
--- NOTE | 2017-08-22 11:24 | PCM.PN ---
- General Info Date of Service: 08/22/17 Subjective Update: Patient states he is doing fine. He is eating well and denies any fever or chills. He does have chronic shortness of breath. Functional Status: Reports: Pain Controlled, Tolerating Diet - Review of Systems General: Reports: Weakness HEENT: Reports: No Symptoms Pulmonary: Reports: Shortness of Breath Cardiovascular: Reports: No Symptoms Gastrointestinal: Reports: No Symptoms Genitourinary: Reports: No Symptoms Musculoskeletal: Reports: Leg Pain Skin: Reports: Other (wound of right stump) Neurological: Reports: Pre-Existing Deficit Psychiatric: Reports: No Symptoms - Patient Data Vitals - Most Recent: Last Vital Signs Temp 36.5 C 08/21/17 19:58 Pulse 90 08/21/17 19:58 Resp 14 08/21/17 19:58 BP 146/67 H 08/21/17 19:58 Pulse Ox 99 08/21/17 19:58 Weight - Most Recent: 96.6 kg I&O - Last 24 Hours: Intake & Output 08/21/17 08/22/17 08/22/17 22:59 06:59 14:59 Intake Total 1490 450 Output Total 1450 350 Balance 40 100 Lab Results Last 24 Hours: Laboratory Results - last 24 hr 08/21/17 08/21/17 08/22/17 Range/Units 06:37 11:55 08:30 POC Glucose 89 (74-110) mg/dL Vancomycin Trough 29.2 H 18.0 H (10.0-15.0) ug/mL Nicolas Results Last 24 Hours: Microbiology 08/18/17 13:30 Gram Stain - Final Stump - Knee, Right Wound Culture - Final NO GROWTH AFTER 3 DAYS Med Orders - Current: Current Medications Acetaminophen (Tylenol) 650 mg PO Q6H PRN PRN Reason: Pain Hydrocodone Bitart/Acetaminophen ([place] 325-5 Mg) 1 tab PO DAILY@1100 [facility] Last Admin: 08/21/17 12:12 Dose: 1 tab Hydrocodone Bitart/Acetaminophen ([place] 325-5 Mg) 1 - 2 tab PO Q6HR PRN PRN Reason: Pain Last Admin: 08/20/17 20:01 Dose: 2 tab Al Hydroxide/Mg Hydroxide (Mag-Al Plus) 30 ml PO BIDMEALS [facility] Last Admin: 08/22/17 09:22 Dose: 30 ml Albuterol/Ipratropium (Duoneb 3.0-0.5 Mg/3 Ml) 3 ml NEB Q4H PRN PRN Reason: Wheezing Atorvastatin Calcium (Lipitor) 20 mg PO BEDTIME [facility] Last Admin: 08/21/17 20:02 Dose: 20 mg Cyclobenzaprine HCl (Flexeril) 10 mg PO TID [facility] Last Admin: 08/22/17 09:21 Dose: 10 mg Diphenhydramine HCl (Benadryl) 50 mg PO Q6H PRN PRN Reason: Itching Dipyridamole/Aspirin (Aggrenox 200-25 Mg) 1 cap PO BID [facility] Last Admin: 08/22/17 09:21 Dose: 1 cap Docusate Sodium (Colace) 100 mg PO BID [facility] Last Admin: 08/22/17 09:22 Dose: 100 mg Fentanyl (Duragesic) 12 mcg TRDERM Q72H [facility] Last Admin: 08/20/17 11:26 Dose: 12 mcg Ferrous Sulfate (Ferrous Sulfate) 325 mg PO BIDMEALS [facility] Last Admin: 08/22/17 09:21 Dose: 325 mg Finasteride (Proscar) 5 mg PO QPM [facility] Last Admin: 08/21/17 20:03 Dose: 5 mg Furosemide (Lasix) 20 mg PO DAILY [facility] Last Admin: 08/22/17 09:22 Dose: 20 mg Gabapentin (Neurontin) 300 mg PO TID [facility] Last Admin: 08/22/17 09:22 Dose: 300 mg Sodium Chloride (Normal Saline) 250 mls @ 30 mls/hr IV ASDIRECTED [facility] Last Admin: 08/22/17 05:47 Dose: 30 mls/hr Piperacillin Sod/Tazobactam (Sod 4.5 gm/ Sodium Chloride) 100 mls @ 200 mls/hr IV Q6H [facility] Last Admin: 08/22/17 05:44 Dose: 200 mls/hr Potassium Chloride/Sodium Chloride (Normal Saline With 40 Meq Kcl) 1,000 mls @ 125 mls/hr IV ASDIRECTED [facility] Stop: 08/22/17 20:30 Sodium Chloride (Normal Saline) 1,000 mls @ 50 mls/hr IV ASDIRECTED [facility] Vancomycin HCl 1 gm/ Sodium (Chloride) 250 mls @ 200 mls/hr IV BID@0900,2100 [facility] Insulin Detemir (Levemir) 20 unit SUBCUT BEDTIME [facility] Last Admin: 08/21/17 20:04 Dose: 20 unit Lactobacillus Acidophilus (Acidolphilus Extra Strength) 1 tab PO DAILY@1200 [facility] Last Admin: 08/21/17 12:28 Dose: 1 tab Levofloxacin (Levaquin) 750 mg PO DAILY@1600 [facility] Last Admin: 08/15/17 18:00 Dose: 750 mg Loperamide HCl (Imodium) 2 mg PO Q2H PRN PRN Reason: DIARRHEA Magnesium Hydroxide (Milk Of Magnesia) 30 ml PO DAILY PRN PRN Reason: Constipation Meclizine HCl (Antivert) 25 mg PO DAILY@1100 [facility] Last Admin: 08/21/17 12:14 Dose: 25 mg Meclizine HCl (Antivert) 25 mg PO DAILY PRN PRN Reason: DIZZINESS Miscellaneous Information (Remove Patch) 1 ea TRDERM Q72H [facility] Last Admin: 08/20/17 13:19 Dose: 1 ea Multivitamins/Minerals/Vitamin C (Childrens Chewable Vitamin) 1 tab PO DAILY [facility] Last Admin: 08/22/17 09:21 Dose: 1 tab Nystatin (Nystop) 15 gm TOP TID [facility] Last Admin: 08/22/17 09:22 Dose: 1 applic Pantoprazole Sodium (Protonix) 40 mg PO ACBREAKFAST [facility] Last Admin: 08/22/17 09:25 Dose: Not Given Risperidone (Risperidal) 0.5 mg PO BID [facility] Last Admin: 08/22/17 09:21 Dose: 0.5 mg Senna (Senna) 17.2 mg PO BEDTIME [facility] Last Admin: 08/21/17 20:01 Dose: 17.2 mg Sertraline HCl (Zoloft) 50 mg PO DAILY [facility] Last Admin: 08/22/17 09:21 Dose: 50 mg Sodium Chloride (Saline Flush) 10 ml FLUSH ASDIRECTED PRN PRN Reason: Keep Vein Open Last Admin: 08/20/17 04:29 Dose: 10 ml Spironolactone (Aldactone) 12.5 mg PO Q48H [facility] Last Admin: 08/20/17 11:27 Dose: 12.5 mg Discontinued Medications Albuterol/Ipratropium (Duoneb 3.0-0.5 Mg/3 Ml) 3 ml NEB Q4H [facility] Last Admin: 12/06/17 19:18 Dose: 3 ml Calamine/Phenol (Calmoseptine) Confirm Administered Dose 113 gm TOP .STK-MED ONE Stop: 08/18/17 08:44 Last Admin: 08/18/17 09:58 Dose: 1 applic Furosemide (Lasix) 40 mg IVPUSH NOW ONE Stop: 08/14/17 18:58 Last Admin: 08/14/17 19:19 Dose: 40 mg Piperacillin Sod/Tazobactam (Sod 4.5 gm/ Sodium Chloride) 100 mls @ 200 mls/hr IV Q6H [facility] Last Admin: 08/18/17 16:31 Dose: Not Given Sodium Chloride (Normal Saline) 500 mls @ 30 mls/hr IV ASDIRECTED [facility] Last Admin: 08/16/17 23:03 Dose: 30 mls/hr Vancomycin HCl 1 gm/ Sodium (Chloride) 250 mls @ 200 mls/hr IV DAILY@1000,2200 [facility] Last Admin: 08/18/17 16:29 Dose: Not Given Vancomycin HCl 1 gm/ Sodium (Chloride) 250 mls @ 200 mls/hr IV ASDIRECTED [facility] Stop: 08/16/17 14:30 Vancomycin HCl 1 gm/ Sodium (Chloride) 250 mls @ 200 mls/hr IV ASDIRECTED [facility] Stop: 08/16/17 16:00 Vancomycin HCl 1 gm/ Sodium (Chloride) 250 mls @ 200 mls/hr IV ASDIRECTED [facility] Stop: 08/16/17 16:00 Last Admin: 08/16/17 15:11 Dose: 200 mls/hr Piperacillin Sod/Tazobactam (Sod 4.5 gm/ Sodium Chloride) 100 mls @ 200 mls/hr IV Q6H [facility] Last Admin: 08/18/17 16:28 Dose: Not Given Vancomycin HCl 1 gm/ Sodium (Chloride) 250 mls @ 200 mls/hr IV Q8H [facility] Last Admin: 08/19/17 05:00 Dose: 200 mls/hr Vancomycin HCl 1 gm/ Sodium (Chloride) 250 mls @ 200 mls/hr IV Q8H [facility] Last Admin: 08/21/17 17:34 Dose: Not Given Vancomycin HCl 1,250 gm/ (Sodium Chloride) 250 mls @ 200 mls/hr IV BID@0900, 2100 [facility] Vancomycin HCl (Vancomycin) Confirm Administered Dose 1 gm .ROUTE .K-MED ONE Stop: 08/17/17 00:32 Last Admin: 08/17/17 01:26 Dose: Not Given - Exam General: Alert HEENT: Pupils Equal Neck: Supple Lungs: Decreased Breath Sounds, Rhonchi Cardiovascular: Regular Rate, Regular Rhythm GI/Abdominal Exam: Normal Bowel Sounds, Soft, Non-Tender Extremities: Leg Pain Skin: Other (improved right stump irritation, fully healed medial part of staple line) Neurological: No New Focal Deficit Psy/Mental Status: Alert - Problem List & Annotations (1) Below knee amputation status SNOMED Code(s): 969798935 Code(s): Z89.519 - ACQUIRED ABSENCE OF UNSPECIFIED LEG BELOW KNEE Status: Acute Priority: High Qualifiers: Laterality: right Qualified Code(s): Z89.511 - Acquired absence of right leg below knee (2) Empyema lung SNOMED Code(s): 705451872 Code(s): J86.9 - PYOTHORAX WITHOUT FISTULA Status: Acute Priority: High (3) Pneumonia SNOMED Code(s): 510766328 Code(s): J18.9 - PNEUMONIA, UNSPECIFIED ORGANISM Status: Acute Priority: High Qualifiers: Pneumonia type: due to unspecified organism (4) Diabetes SNOMED Code(s): 59942246 Code(s): E11.9 - TYPE 2 DIABETES MELLITUS WITHOUT COMPLICATIONS Status: Chronic Priority: High Qualifiers: Diabetes mellitus complication status: with skin complications Diabetes mellitus complication detail: with other skin complication 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 use: with alf use (5) 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 SNOMED Code(s): 50854665 Code(s): I69.359 - HEMIPLGA FOLLOWING CEREBRAL INFARCTION AFFECTING UNSP SIDE Status: Chronic Priority: Medium (6) History of CVA (cerebrovascular accident) SNOMED Code(s): 859373143 Code(s): Z86.73 - PRSNL HX OF TIA (TIA), AND CEREB INFRC W/O RESID DEFICITS Status: Chronic Priority: Medium (7) Wound infection after surgery SNOMED Code(s): 40300421 Code(s): T81.4XXA - INFECTION FOLLOWING A PROCEDURE, INITIAL ENCOUNTER Status: Acute Priority: High Qualifiers: Encounter type: subsequent encounter Qualified Code(s): T81.4XXD - Infection following a procedure, subsequent encounter (8) Palliative care patient SNOMED Code(s): 299184725 Code(s): Z51.5 - ENCOUNTER FOR PALLIATIVE CARE Status: Chronic Priority: High - Problem List Review Problem List Initiated/Reviewed/Updated: Yes - My Orders Last 24 Hours: My Active Orders 08/22/17 08:30 Chest w Cont [CT] Routine Sodium Chloride 0.9% [Normal Saline] 1,000 ml IV ASDIRECTED Sodium Chloride 0.9% with KCl [Normal Saline with 40 mEq KCl] 1,000 ml IV ASDIRECTED 08/22/17 09:25 Vancomycin 1 gm Sodium Chloride 0.9% [Normal Saline] 250 ml IV BID@0900,2100 08/23/17 05:11 CBC WITH AUTO DIFF [HEME] AM COMPREHENSIVE METABOLIC PN,CMP [CHEM] AM LACTIC ACID [CHEM] Routine 08/23/17 08:30 Chest w Cont [CT] Routine - Assessment Assessment:: left lower extremity empyema 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 Discussed pneumonia and the possibility of transfer as needed. At this time patient and would like to try IV antibiotics and measure here at the hospital and monitor for further eval prior to consideration of transfer. We will start Zosyn and continue oral levaquin and wound care daily. F/u labs and CXR in AM. 08/17/17 Afebrile. Status unchanged. the wound is the right BKA slowly healing. No new symptoms over the past 24 hrs.Will continue IV antibiotics . Will repeat CBC in Am and reassess. 08/18/17 Pt is doing better. He has been afebrile and asymptomatic.His short episode of confusion is nonspecific. I dont think he is having stroke or TIA. HE is very alert and at his baseline mental function today. Pt does have decreased air entry to left lower lobe, which could be from his on going pneumonia with possible empyema.He has been on vancomycin and zosyn for it. He does not have any clinical worsening of his symptoms. Will continue present regime and incentive spirometry exercise to expand the lungs. He has developed diarrhea. His white count is stable. This could be antibiotic induced diarrhea. His C-diff is negative. Will continue probiotics and encourage hydration. If he does have frequent and large volume loose stools, might need IV hydration. His right knee stump, is showing changes of skin maceration with increasing erythema and drainage. Wound culture drawn today. Also meanwhile his Vanco through is available and it is low at 12.3 for skin infection. I would like the trough to be [id number] for good tissue concentration. hence I have increased his vancomycin to 1gm TID and will need the trough in 48hrs. will get CBC and BMP in Am. i will discuss the issue with Dr. Jaime munroe and hand over patient care to him on Saturday08/19/17. 08/19/17 Patient appears stable. Wound of right stump is worse as reported by Dr. Gilbert. There is increased drainage and maceration of right side of staple line. Left side of staple line remains stable and healing well. Discussed vancomycin trough level and increased dosing. Discussed continued follow up and recheck for the next 48hrs for progress. Discussed lung findings - will f/u CXR today. Patient remains afebrile and normal WBC despite known Empyema and cellulitis of stump. We will continue current antibiotics as directed. 08/20/17 Improved wound of stump. Elvin PT/wound care will debride today. Continue current antibiotics. No changes. Labs in AM. CT chest f/u for empyema on Saturday. 08/21/17 Continual improvement of staple like wound. Decreased drainage and erythema. Gradual improvement. Recheck Vancomycin trough - discussed with Pharmacy. F/u in AM. 08/22/17 Continue current antibiotics. Minimal improvement of wound. No changes in lung aeration or status. No worsening. Continue close monitoring and IV antibiotics.
[2017-08-22] MEDS: Lactobacillus Acidophilus/Lactobacillus Sporogenes (Probiotic) Tab PO SCH (11:28)
[2017-08-22] MEDS: Acetaminophen/HYDROcodone 325-5 MG Tab PO SCH ×2 (11:28→14:05)
[2017-08-22] MEDS: Spironolactone 25 MG Tab PO SCH (11:32)
--- NOTE | 2017-08-22 20:24 | CT ---
DATE OF SERVICE: 08/22/2017 CLINICAL DATA: Empyema. ENHANCED CHEST CT: No priors. The patient is status post median sternotomy. There is a large left pleural effusion. The adjacent pleura does appear thickened. The possibility of a empyema should be considered. There is atelectasis and dense consolidation at the left lower lobe. The left lower lobe bronchus is filled with soft tissue density material most likely represent mucus plugging. Tumor cannot be excluded. There is a small right pleural effusion. There are mild atelectatic changes in the dependent portion of the right lung. The right lung is otherwise clear. The heart is enlarged. There are coronary artery calcifications. No significant pericardial effusion. No hilar or mediastinal adenopathy. There is a calcified gallstone noted within the gallbladder. No other significant findings. IMPRESSION: Abnormal exam. See above findings. [id number] [facility]
[2017-08-22] MEDS: Sennosides 8.6 MG Tab PO SCH (20:29)
[2017-08-22] MEDS: Finasteride 5 MG Tab PO SCH (20:30)
[2017-08-22] MEDS: atorvaSTATin 20 MG Tab PO SCH (20:30)
[2017-08-22] MEDS: Insulin Detemir 100 Units/ML 3 ML Pen SUBCUT SCH (20:31)
[2017-08-23] MEDS: Piperacillin/Tazobactam 4.5 GM in Sodium Chloride 0.9% 100 ML IV SCH ×3 (05:29→17:23)
[2017-08-23] MEDS: Pantoprazole 40 MG Tab.CR PO SCH ×2 (05:37→06:19)
[2017-08-23 07:28] VITALS: BP 151/68
[2017-08-23] MEDS: Ferrous Sulfate 325 MG Tab PO SCH ×2 (08:21→17:27)
[2017-08-23] MEDS: Aspirin/Dipyridamole 200-25 MG Cap.ER PO SCH (08:21)
[2017-08-23] MEDS: Furosemide 20 MG Tab PO SCH (08:21)
[2017-08-23] MEDS: Multivitamin, Childrens Tab.Chew PO SCH (08:21)
[2017-08-23] MEDS: Gabapentin 300 MG Cap PO SCH ×2 (08:21→14:00)
[2017-08-23] MEDS: Aluminum Hydroxide/Magnesium Hydroxide/Simethicone Susp 30 ML Cup PO SCH ×2 (08:21→17:27)
[2017-08-23] MEDS: Docusate Sodium 100 MG Cap PO SCH (08:21)
[2017-08-23] MEDS: Cyclobenzaprine 10 MG Tab PO SCH ×2 (08:21→14:00)
[2017-08-23] MEDS: Nystatin Topical Powder 15 GM Bottle TOP SCH ×2 (08:22→14:00)
[2017-08-23] MEDS: Sertraline 50 MG Tab PO SCH (08:22)
[2017-08-23] MEDS: risperiDONE 1 MG Tab PO SCH (08:23)
[2017-08-23] MEDS: Acetaminophen/HYDROcodone 325-5 MG Tab PO SCH (11:44)
[2017-08-23] MEDS: Lactobacillus Acidophilus/Lactobacillus Sporogenes (Probiotic) Tab PO SCH (11:44)
[2017-08-23] MEDS: fentaNYL 12 MCG/HR Transdermal Patch TRDERM SCH (11:48)
--- NOTE | 2017-08-23 14:43 | PCM.DCSUM1 ---
Discharge Summary - Discharge Data Discharge Date: 08/23/17 Discharge Disposition: DC/Tfer W/I Hosp To [facility] Condition: Stable - Discharge Diagnosis/Problem(s) (1) Below knee amputation status SNOMED Code(s): 473610505 ICD Code: Z89.519 - ACQUIRED ABSENCE OF UNSPECIFIED LEG BELOW KNEE Status: Acute Priority: High Qualifiers: Laterality: right Qualified Code(s): Z89.511 - Acquired absence of right leg below knee (2) Empyema lung SNOMED Code(s): 798819701 ICD Code: J86.9 - PYOTHORAX WITHOUT FISTULA Status: Acute Priority: High (3) Pneumonia SNOMED Code(s): 261368602 ICD Code: J18.9 - PNEUMONIA, UNSPECIFIED ORGANISM Status: Acute Priority : High Qualifiers: Pneumonia type: due to unspecified organism (4) Diabetes SNOMED Code(s): 57469015 ICD Code: E11.9 - TYPE 2 DIABETES MELLITUS WITHOUT COMPLICATIONS Status: Chronic Priority: High Qualifiers: Diabetes mellitus complication status: with skin complications Diabetes mellitus complication detail: with other skin complication Diabetes mellitus prison insulin use: with admissions coordinator use (5) 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 SNOMED Code(s): 08518032 ICD Code: I69.359 - HEMIPLGA FOLLOWING CEREBRAL INFARCTION AFFECTING UNSP SIDE Status: Chronic Priority: Medium (6) History of CVA (cerebrovascular accident) SNOMED Code(s): 098934405 ICD Code: Z86.73 - PRSNL HX OF TIA (TIA), AND CEREB INFRC W/O RESID DEFICITS Status: Chronic Priority: Medium (7) Wound infection after surgery SNOMED Code(s): 96863071 ICD Code: T81.4XXA - INFECTION FOLLOWING A PROCEDURE, INITIAL ENCOUNTER Status: Acute Priority: High Qualifiers: Encounter type: subsequent encounter Qualified Code(s): T81.4XXD - Infection following a procedure, subsequent encounter - Patient Summary/Data Consults: Consultations 08/13/17 14:38 Consult to Pharmacy [CONS] Routine Comment: Physician Instructions: Quantity: 08/14/17 14:09 OT Evaluation and Treatment [CONS] Routine Please Evaluate and Treat. OT Reason for Consult: ADL's This query below is only for informational purposes and is not editable. Admission Diagnosis/Problem: Cellulitis PT Evaluation and Treatment [CONS] Routine Please Evaluate and Treat. PT Reason for Consult: Wound Care This query below is only for informational purposes and is not editable. Admission Diagnosis/Problem: Cellulitis - Discharge Plan Home Medications: Home Meds Acetaminophen [Tylenol] 650 mg PO Q6H PRN 09/21/16 [History] Acetaminophen/HYDROcodone [[place] 325-5 MG] 1 - 2 tab PO Q6HR PRN 09/21/16 [ History] Aspirin/Dipyridamole [Aggrenox 200-25 MG] 1 cap PO BID 09/21/16 [History] Ferrous Sulfate 325 mg PO BIDMEALS 09/21/16 [History] Finasteride [Proscar] 5 mg PO QPM 09/21/16 [History] Furosemide [Lasix] 20 mg PO DAILY 09/21/16 [History] Gabapentin [Neurontin] 300 mg PO TID 09/21/16 [History] Multivitamins [Childrens Chewable Vitamin] 1 tab PO DAILY 09/21/16 [History] Pantoprazole [ProTONIX] 40 mg PO ACBREAKFAST 09/21/16 [History] Sertraline [Zoloft] 50 mg PO DAILY 09/21/16 [History] Spironolactone [Aldactone] 12.5 mg PO Q48H 09/21/16 [History] atorvaSTATin [Lipitor] 20 mg PO BEDTIME 09/21/16 [History] diphenhydrAMINE [Benadryl] 50 mg PO Q6H PRN 09/21/16 [History] Acetaminophen/HYDROcodone [[place] 325-5 MG] 1 tab PO DAILY@1100 10/01/16 [History ] Cyclobenzaprine [Flexeril] 10 mg PO TID 08/01/17 [History] fentaNYL [Duragesic] 12 mcg TD Q72H 08/01/17 [History] Docusate Sodium [Colace] 100 mg PO BID 08/13/17 [History] Insulin Detemir [Levemir] 20 unit SUBCUT BEDTIME 08/13/17 [History] Magnesium Hydroxide [Milk of Magnesia] 30 ml PO DAILY PRN 08/13/17 [History] Nystatin [Nystop] 15 gm TOP TID 08/13/17 [History] Acidophilus/Lactobac Spor [Acidolphilus X-Strength] 1 tab PO DAILY@1200 tablet 08/16/17 [Rx] Albuterol/Ipratropium [DuoNeb 3.0-0.5 MG/3 ML] 3 ml NEB Q4H PRN neb 08/16/17 [ Rx] Alum Hydrox/Mag Hydrox/Simeth [Mag-Al Plus] 30 ml PO BIDMEALS cup 08/16/17 [Rx] Levofloxacin [Levaquin] 750 mg PO DAILY@1600 tablet 08/16/17 [Rx] Loperamide [Imodium] 2 mg PO Q2H PRN cap 08/16/17 [Rx] Meclizine [Antivert] 25 mg PO DAILY PRN tab.chew 08/16/17 [Rx] Meclizine [Antivert] 25 mg PO DAILY@1100 tab.chew 08/16/17 [Rx] Remove Patch 1 ea TRDERM Q72H each 08/16/17 [Rx] Sennosides [Senna] 17.2 mg PO BEDTIME tablet 08/16/17 [Rx] risperiDONE [RisperiDAL] 0.5 mg PO BID tablet 08/16/17 [Rx] - Discharge Summary/Plan Comment DC Time >30 min.: Yes Discharge Summary/Plan Comment: Discussed and counseled in length of prognosis and the need for further intervention including surgical or thoracocentesis. Patient and agree that they do not want further intervention. We will admit to swing for IV antibiotics , Wound care and palliative care. - Patient Data Vitals - Most Recent: Last Vital Signs Temp 36.4 C 08/23/17 07:25 Pulse 91 08/23/17 07:25 Resp 19 08/23/17 07:25 BP 151/68 H 08/23/17 07:25 Pulse Ox 91 L 08/23/17 07:25 Weight - Most Recent: 96.6 kg I&O - Last 24 hours: Intake & Output 08/22/17 08/23/17 08/23/17 22:59 06:59 14:59 Intake Total 1650 1598 Output Total 700 2325 Balance 950 -727 Lab Results - Last 24 hrs: Laboratory Results - last 24 hr 08/23/17 08/23/17 08/23/17 Range/Units 07:18 07:20 07:20 WBC 9.6 (4.0-11.0) K/uL RBC 3.33 L (4.50-6.50) M/uL Hgb 9.8 L (13.0-18.0) g/dL Hct 31.4 L (40.0-54.0) % MCV 94 (76-96) fL MCH 29.4 (27.0-32.0) pg MCHC 31.2 (31.0-35.0) g/dL RDW 14.4 (11.0-16.0) % Plt Count 195 (150-400) K/uL MPV 9.4 (6.0-10.0) fL Neut % (Auto) 78.7 H (45.0-70.0) % Lymph % (Auto) 8.7 L (20.0-40.0) % Newton % (Auto) 10.7 H (3.0-10.0) % Eos % (Auto) 1.7 (1.0-5.0) % Baso % (Auto) 0.2 (0.0-0.5) % Neut # (Auto) 7.57 H (2.00-7.50) K/uL Lymph # (Auto) 0.84 L (1.50-4.00) K/uL Newton # (Auto) 1.03 H (0.20-0.80) K/uL Eos # (Auto) 0.16 (0.04-0.40) K/uL Baso # (Auto) 0.02 (0.02-0.10) K/uL Sodium 139 (136-145) mmol/L Potassium 4.0 D (3.5-5.1) mmol/L Chloride 105 (98-107) mmol/L Carbon Dioxide 30.2 (21.0-32.0) mmol/L Anion Gap 7.8 (5.0-15.0) mmol/L BUN 8 (8-26) mg/dL Creatinine 0.76 (0.70-1.30) mg/dL Est Cr Clr Drug Dosing 90.76 mL/min Estimated GFR (MDRD) > 60 (>60) MLS/MIN BUN/Creatinine Ratio 10.5 (6-25) Glucose 72 L (74-100) mg/dL POC Glucose 76 (74-110) mg/dL Lactic Acid (0.90-1.70) mmol/L Calcium 7.9 L (8.5-10.1) mg/dL Total Bilirubin 0.3 D (0.0-1.0) mg/dL AST 17 (15-37) U/L ALT 12 (12-78) U/L Alkaline Phosphatase 107 (46-116) U/L Total Protein 5.6 L (6.4-8.2) g/dL Albumin 2.1 L (3.4-5.0) g/dL Globulin 3.5 (2.2-4.2) g/dL Albumin/Globulin Ratio 0.6 L (0.8-2.0) 08/23/17 Range/Units 07:20 WBC (4.0-11.0) K/uL RBC (4.50-6.50) M/uL Hgb (13.0-18.0) g/dL Hct (40.0-54.0) % MCV (76-96) fL MCH (27.0-32.0) pg MCHC (31.0-35.0) g/dL RDW (11.0-16.0) % Plt Count (150-400) K/uL MPV (6.0-10.0) fL Neut % (Auto) (45.0-70.0) % Lymph % (Auto) (20.0-40.0) % Newton % (Auto) (3.0-10.0) % Eos % (Auto) (1.0-5.0) % Baso % (Auto) (0.0-0.5) % Neut # (Auto) (2.00-7.50) K/uL Lymph # (Auto) (1.50-4.00) K/uL Newton # (Auto) (0.20-0.80) K/uL Eos # (Auto) (0.04-0.40) K/uL Baso # (Auto) (0.02-0.10) K/uL Sodium (136-145) mmol/L Potassium (3.5-5.1) mmol/L Chloride (98-107) mmol/L Carbon Dioxide (21.0-32.0) mmol/L Anion Gap (5.0-15.0) mmol/L BUN (8-26) mg/dL Creatinine (0.70-1.30) mg/dL Est Cr Clr Drug Dosing mL/min Estimated GFR (MDRD) (>60) MLS/MIN BUN/Creatinine Ratio (6-25) Glucose (74-100) mg/dL POC Glucose (74-110) mg/dL Lactic Acid 0.80 L (0.90-1.70) mmol/L Calcium (8.5-10.1) mg/dL Total Bilirubin (0.0-1.0) mg/dL AST (15-37) U/L ALT (12-78) U/L Alkaline Phosphatase (46-116) U/L Total Protein (6.4-8.2) g/dL Albumin (3.4-5.0) g/dL Globulin (2.2-4.2) g/dL Albumin/Globulin Ratio (0.8-2.0) Med Orders - Current: Current Medications Acetaminophen (Tylenol) 650 mg PO Q6H PRN PRN Reason: Pain Hydrocodone Bitart/Acetaminophen ([place] 325-5 Mg) 1 tab PO DAILY@1100 [facility] Last Admin: 08/23/17 11:44 Dose: 1 tab Hydrocodone Bitart/Acetaminophen (S[place] 325-5 Mg) 1 - 2 tab PO Q6HR PRN PRN Reason: Pain Last Admin: 08/20/17 20:01 Dose: 2 tab Al Hydroxide/Mg Hydroxide (Mag-Al Plus) 30 ml PO BIDMEALS [facility] Last Admin: 08/23/17 08:21 Dose: 30 ml Albuterol/Ipratropium (Duoneb 3.0-0.5 Mg/3 Ml) 3 ml NEB Q4H PRN PRN Reason: Wheezing Atorvastatin Calcium (Lipitor) 20 mg PO BEDTIME [facility] Last Admin: 08/22/17 20:30 Dose: 20 mg Cyclobenzaprine HCl (Flexeril) 10 mg PO TID [facility] Last Admin: 08/23/17 08:21 Dose: 10 mg Diphenhydramine HCl (Benadryl) 50 mg PO Q6H PRN PRN Reason: Itching Dipyridamole/Aspirin (Aggrenox 200-25 Mg) 1 cap PO BID [facility] Last Admin: 08/23/17 08:21 Dose: 1 cap Docusate Sodium (Colace) 100 mg PO BID [facility] Last Admin: 08/23/17 08:21 Dose: 100 mg Fentanyl (Duragesic) 12 mcg TRDERM Q72H [facility] Last Admin: 08/23/17 11:48 Dose: 12 mcg Ferrous Sulfate (Ferrous Sulfate) 325 mg PO BIDMEALS [facility] Last Admin: 08/23/17 08:21 Dose: 325 mg Finasteride (Proscar) 5 mg PO QPM [facility] Last Admin: 08/22/17 20:30 Dose: 5 mg Furosemide (Lasix) 20 mg PO DAILY [facility] Last Admin: 08/23/17 08:21 Dose: 20 mg Gabapentin (Neurontin) 300 mg PO TID [facility] Last Admin: 08/23/17 08:21 Dose: 300 mg Sodium Chloride (Normal Saline) 250 mls @ 30 mls/hr IV ASDIRECTED [facility] Last Admin: 08/22/17 05:47 Dose: 30 mls/hr Piperacillin Sod/Tazobactam (Sod 4.5 gm/ Sodium Chloride) 100 mls @ 200 mls/hr IV Q6H [facility] Last Admin: 08/23/17 11:41 Dose: 200 mls/hr Sodium Chloride (Normal Saline) 1,000 mls @ 50 mls/hr IV ASDIRECTED [facility] Vancomycin HCl 1 gm/ Sodium (Chloride) 250 mls @ 200 mls/hr IV Q12H [facility] Last Admin: 08/23/17 03:13 Dose: 200 mls/hr Insulin Detemir (Levemir) 20 unit SUBCUT BEDTIME [facility] Last Admin: 08/22/17 20:31 Dose: 20 unit Lactobacillus Acidophilus (Acidolphilus Extra Strength) 1 tab PO DAILY@1200 [facility] Last Admin: 08/23/17 11:44 Dose: 1 tab Levofloxacin (Levaquin) 750 mg PO DAILY@1600 [facility] Last Admin: 08/15/17 18:00 Dose: 750 mg Loperamide HCl (Imodium) 2 mg PO Q2H PRN PRN Reason: DIARRHEA Magnesium Hydroxide (Milk Of Magnesia) 30 ml PO DAILY PRN PRN Reason: Constipation Meclizine HCl (Antivert) 25 mg PO DAILY@1100 [facility] Last Admin: 08/23/17 11:44 Dose: 25 mg Meclizine HCl (Antivert) 25 mg PO DAILY PRN PRN Reason: DIZZINESS Miscellaneous Information (Remove Patch) 1 ea TRDERM Q72H [facility] Last Admin: 08/23/17 11:55 Dose: 1 ea Multivitamins/Minerals/Vitamin C (Childrens Chewable Vitamin) 1 tab PO DAILY [facility] Last Admin: 08/23/17 08:21 Dose: 1 tab Nystatin (Nystop) 15 gm TOP TID [facility] Last Admin: 08/23/17 08:22 Dose: 1 applic Pantoprazole Sodium (Protonix) 40 mg PO ACBREAKFAST [facility] Last Admin: 08/23/17 06:19 Dose: Not Given Risperidone (Risperidal) 0.5 mg PO BID [facility] Last Admin: 08/23/17 08:23 Dose: 0.5 mg Senna (Senna) 17.2 mg PO BEDTIME [facility] Last Admin: 08/22/17 20:29 Dose: 17.2 mg Sertraline HCl (Zoloft) 50 mg PO DAILY [facility] Last Admin: 08/23/17 08:22 Dose: 50 mg Sodium Chloride (Saline Flush) 10 ml FLUSH ASDIRECTED PRN PRN Reason: Keep Vein Open Last Admin: 08/20/17 04:29 Dose: 10 ml Spironolactone (Aldactone) 12.5 mg PO Q48H [facility] Last Admin: 08/22/17 11:32 Dose: 12.5 mg Discontinued Medications Albuterol/Ipratropium (Duoneb 3.0-0.5 Mg/3 Ml) 3 ml NEB Q4H [facility] Last Admin: 08/14/17 19:18 Dose: 3 ml Calamine/Phenol (Calmoseptine) Confirm Administered Dose 113 gm TOP .STK-MED ONE Stop: 08/18/17 08:44 Last Admin: 08/18/17 09:58 Dose: 1 applic Furosemide (Lasix) 40 mg IVPUSH NOW ONE Stop: 08/14/17 18:58 Last Admin: 08/14/17 19:19 Dose: 40 mg Piperacillin Sod/Tazobactam (Sod 4.5 gm/ Sodium Chloride) 100 mls @ 200 mls/hr IV Q6H [facility] Last Admin: 08/18/17 16:31 Dose: Not Given Sodium Chloride (Normal Saline) 500 mls @ 30 mls/hr IV ASDIRECTED [facility] Last Admin: 08/16/17 23:03 Dose: 30 mls/hr Vancomycin HCl 1 gm/ Sodium (Chloride) 250 mls @ 200 mls/hr IV DAILY@1000,2200 [facility] Last Admin: 08/18/17 16:29 Dose: Not Given Vancomycin HCl 1 gm/ Sodium (Chloride) 250 mls @ 200 mls/hr IV ASDIRECTED [facility] Stop: 08/16/17 14:30 Vancomycin HCl 1 gm/ Sodium (Chloride) 250 mls @ 200 mls/hr IV ASDIRECTED [facility] Stop: 08/16/17 16:00 Vancomycin HCl 1 gm/ Sodium (Chloride) 250 mls @ 200 mls/hr IV ASDIRECTED [facility] Stop: 08/16/17 16:00 Last Admin: 08/16/17 15:11 Dose: 200 mls/hr Piperacillin Sod/Tazobactam (Sod 4.5 gm/ Sodium Chloride) 100 mls @ 200 mls/hr IV Q6H [facility] Last Admin: 08/18/17 16:28 Dose: Not Given Vancomycin HCl 1 gm/ Sodium (Chloride) 250 mls @ 200 mls/hr IV Q8H [facility] Last Admin: 08/19/17 05:00 Dose: 200 mls/hr Vancomycin HCl 1 gm/ Sodium (Chloride) 250 mls @ 200 mls/hr IV Q8H [facility] Last Admin: 08/21/17 17:34 Dose: Not Given Vancomycin HCl 1,250 gm/ (Sodium Chloride) 250 mls @ 200 mls/hr IV BID@0900, 2100 [facility] Last Admin: 08/22/17 23:12 Dose: Not Given Potassium Chloride/Sodium Chloride (Normal Saline With 40 Meq Kcl) 1,000 mls @ 125 mls/hr IV ASDIRECTED [facility] Stop: 08/22/17 20:30 Last Admin: 08/22/17 21:15 Dose: 125 mls/hr Vancomycin HCl 1 gm/ Sodium (Chloride) 250 mls @ 200 mls/hr IV BID@0900,2100 [facility] Vancomycin HCl (Vancomycin) Confirm Administered Dose 1 gm .ROUTE .STK-MED ONE Stop: 08/17/17 00:32 Last Admin: 08/17/17 01:26 Dose: Not Given *Q Meaningful Use (DIS) - VTE *Q VTE Criteria *Q: - Stroke *Q Stroke Criteria *Q: - AMI *Q AMI Criteria *Q:
[2017-08-23] MEDS: Sodium Chloride 0.9% 250 ML IV SCH (14:54)
== END 2017-08-23 19:50 | disposition swing bed (61) | DRG 193 ==
LOC: UNDOADMIN 09:48 → LB.MS 09:48
PROVIDERS: ADMIT Family Medicine; ATTEND Family Medicine
DX: J18.9 Pneumonia, unspecified organism (principal); J86.9 Pyothorax without fistula; T81.4XXA Infection following a procedure, initial encounter; L03.115 Cellulitis of right lower limb; I69.359 Hemiplegia and hemiparesis following cerebral infarction affecting unspecified side; Z66 Do not resuscitate; E11.9 Type 2 diabetes mellitus without complications; Z89.511 Acquired absence of right leg below knee; I25.10 Atherosclerotic heart disease of native coronary artery without angina pectoris; E78.00 Pure hypercholesterolemia, unspecified; I50.9 Heart failure, unspecified; K21.9 Gastro-esophageal reflux disease without esophagitis; M54.9 Dorsalgia, unspecified; G89.29 Other chronic pain; F32.9 Major depressive disorder, single episode, unspecified; E61.1 Iron deficiency; R19.7 Diarrhea, unspecified; Z95.1 Presence of aortocoronary bypass graft; H91.90 Unspecified hearing loss, unspecified ear; N42.9 Disorder of prostate, unspecified; Z79.82 Long term (current) use of aspirin; Z79.4 Long term (current) use of insulin
CPT/HCPCS: 36415; 71010; 71260; 80048; 80053; 80202; 82962; 83605; 83880; 84484; 85025; 87040; 87070; 87205; 87493; 97140-GO; 97161-GP; 97597-GP; A9270-GY; J1940; J2543; J3370; J3480; J7030; J7040; J7050; J7620

== ENCOUNTER 2017-08-23 14:24 | Inpatient (IN) | payer MEDICARE, OTHER, MEDICAID ==
[2017-08-23] MEDS ORDERED: Tuberculin, PPD 5 Units/0.1 ML 1 ML MDV IDERM ONE (14:45)
--- NOTE | 2017-08-23 14:45 | PCM.HP ---
H&P History of Present Illness - General Date of Service: 08/23/17 Source of Information: Patient, Family, Prison Records, Old Records, RN Notes Reviewed - History of Present Illness Initial Comments - Free Text/Narative: This is a 76yo M from the care center admitted to swing bed for rehabilitation, continued IV antibiotics and wound care of his right lower amputation. Patient does not desire any further intervention or surgical management and agrees. Onset of Symptoms: Reports: Gradual Duration of Symptoms: Reports: Week(s): Location: Reports: Lower Extremity, Right Associated Symptoms: Reports: Weakness - Related Data Allergies/Adverse Reactions: Allergies Allergy/AdvReac Type Severity Reaction Status Date / Time No Known Allergies Allergy Verified 08/24/17 05:01 Home Medications: Home Meds Acetaminophen [Tylenol] 650 mg PO Q6H PRN 09/21/16 [History] Acetaminophen/HYDROcodone [[place] 325-5 MG] 1 - 2 tab PO Q6HR PRN 09/21/16 [ History] Aspirin/Dipyridamole [Aggrenox 200-25 MG] 1 cap PO BID 09/21/16 [History] Ferrous Sulfate 325 mg PO BIDMEALS 09/21/16 [History] Finasteride [Proscar] 5 mg PO QPM 09/21/16 [History] Furosemide [Lasix] 20 mg PO DAILY 09/21/16 [History] Gabapentin [Neurontin] 300 mg PO TID 09/21/16 [History] Multivitamins [Childrens Chewable Vitamin] 1 tab PO DAILY 09/21/16 [History] Pantoprazole [ProTONIX] 40 mg PO ACBREAKFAST 09/21/16 [History] Sertraline [Zoloft] 50 mg PO DAILY 09/21/16 [History] Spironolactone [Aldactone] 12.5 mg PO Q48H 09/21/16 [History] atorvaSTATin [Lipitor] 20 mg PO BEDTIME 09/21/16 [History] diphenhydrAMINE [Benadryl] 50 mg PO Q6H PRN 09/21/16 [History] Acetaminophen/HYDROcodone [[place] 325-5 MG] 1 tab PO DAILY@1100 10/01/16 [History ] Cyclobenzaprine [Flexeril] 10 mg PO TID 08/01/17 [History] fentaNYL [Duragesic] 12 mcg TD Q72H 08/01/17 [History] Docusate Sodium [Colace] 100 mg PO BID 08/13/17 [History] Insulin Detemir [Levemir] 20 unit SUBCUT BEDTIME 08/13/17 [History] Magnesium Hydroxide [Milk of Magnesia] 30 ml PO DAILY PRN 08/13/17 [History] Nystatin [Nystop] 15 gm TOP TID 08/13/17 [History] Acidophilus/Lactobac Spor [Acidolphilus X-Strength] 1 tab PO DAILY@1200 tablet 08/16/17 [Rx] Albuterol/Ipratropium [DuoNeb 3.0-0.5 MG/3 ML] 3 ml NEB Q4H PRN neb 08/16/17 [ Rx] Alum Hydrox/Mag Hydrox/Simeth [Mag-Al Plus] 30 ml PO BIDMEALS cup 08/16/17 [Rx] Levofloxacin [Levaquin] 750 mg PO DAILY@1600 tablet 08/16/17 [Rx] Loperamide [Imodium] 2 mg PO Q2H PRN cap 08/16/17 [Rx] Meclizine [Antivert] 25 mg PO DAILY PRN tab.chew 08/16/17 [Rx] Meclizine [Antivert] 25 mg PO DAILY@1100 tab.chew 08/16/17 [Rx] Remove Patch 1 ea TRDERM Q72H each 08/16/17 [Rx] Sennosides [Senna] 17.2 mg PO BEDTIME tablet 08/16/17 [Rx] risperiDONE [RisperiDAL] 0.5 mg PO BID tablet 08/16/17 [Rx] Past Medical History HEENT History: Reports: Hard of Hearing, Sinusitis, Other (See Below) Other HEENT History: Wears glasses Cardiovascular History: Reports: CAD, High Cholesterol, Hypertension, Other ( See Below) Other Cardiovascular History: CHF Gastrointestinal History: Reports: Fecal Incontinence, Other (See Below) Other Gastrointestinal History: Esophagitis Reflux Genitourinary History: Reports: Prostate Disorder Musculoskeletal History: Reports: Amputation, Back Pain, Chronic, Gout Other Musculoskeletal History: R BKA Neurological History: Reports: CVA Psychiatric History: Reports: Depression Endocrine/Metabolic History: Reports: Diabetes, Type II Hematologic History: Reports: Other (See Below) Other Hematologic History: 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 Dermatologic History: Reports: Cellulitis - Past Surgical History Cardiovascular Surgical History: Reports: Other (See Below) Other Cardiovascular Surgeries/Procedures: CABG Endocrine Surgical History: Reports: None Neurological Surgical History: Reports: None Musculoskeletal Surgical History: Reports: Amputation Social & Family History - Family History Family Medical History: Noncontributory - Tobacco Use Smoking Status *Q: Never Smoker Second Hand Smoke Exposure: No - Caffeine Use Caffeine Use: Reports: Soda - Recreational Drug Use Recreational Drug Use: No H&P Review of Systems - Review of Systems: Review Of Systems: ROS reveals no pertinent complaints other than HPI. Exam - Exam Exam: See Below - Exam General: Alert, Oriented HEENT: PERRLA Lungs: Decreased Breath Sounds, Rales, Rhonchi Cardiovascular: Regular Rate, Regular Rhythm GI/Abdominal Exam: Normal Bowel Sounds, Soft, Non-Tender Back Exam: Muscle Spasm Extremities: Other (wound healing of right lower stump) Peripheral Pulses: 2+: Dorsalis Pedis (L) Skin: Warm, Dry, Intact, Wound Neurological: Clonus, Other Neuro Extensive - Mental Status: Alert, Disorientation to Time - Patient Data Result Diagrams: 08/29/17 07:20 08/29/17 07:20 *Q Meaningful Use (ADM) - VTE *Q VTE Criteria *Q: - Stroke *Q Stroke Criteria *Q: - AMI *Q AMI Criteria *Q: - Problem List (1) Pleural effusion SNOMED Code(s): 23367715 ICD Code: J90 - PLEURAL EFFUSION, NOT ELSEWHERE CLASSIFIED Status: Acute Priority: High (2) Below knee amputation status SNOMED Code(s): 796928565 ICD Code: Z89.519 - ACQUIRED ABSENCE OF UNSPECIFIED LEG BELOW KNEE Status: Acute Priority: High Qualifiers: Laterality: right Qualified Code(s): Z89.511 - Acquired absence of right leg below knee (3) Empyema lung SNOMED Code(s): 812113794 ICD Code: J86.9 - PYOTHORAX WITHOUT FISTULA Status: Acute Priority: High (4) Wound infection after surgery SNOMED Code(s): 63270004 ICD Code: T81.4XXA - INFECTION FOLLOWING A PROCEDURE, INITIAL ENCOUNTER Status: Acute Priority: High Qualifiers: Encounter type: subsequent encounter Qualified Code(s): T81.4XXD - Infection following a procedure, subsequent encounter (5) Diabetes SNOMED Code(s): 62651238 ICD Code: E11.9 - TYPE 2 DIABETES MELLITUS WITHOUT COMPLICATIONS Status: Chronic Priority: High Qualifiers: Diabetes mellitus complication status: with skin complications Diabetes mellitus complication detail: with other skin complication Diabetes mellitus custodial insulin use: with custodial use (6) 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 He does not want further intervention and absolutely no surgical intervention. Family agree with wishes. Continue normal care, with PT/OT and wound cares. IV antibiotics continued at this time.
[2017-08-23] MEDS: Piperacillin/Tazobactam 4.5 GM in Sodium Chloride 0.9% 100 ML IV SCH ×2 (17:00→23:15)
[2017-08-23] MEDS ORDERED: Loperamide 2 MG Cap PO PRN (21:32)
[2017-08-23] MEDS ORDERED: Acetaminophen 325 MG Tab PO PRN (21:32)
[2017-08-23] MEDS ORDERED: diphenhydrAMINE 50 MG Cap PO PRN (21:32)
[2017-08-23] MEDS ORDERED: Magnesium Hydroxide 400 MG/5 ML Susp 30 ML Cup PO PRN (21:32)
[2017-08-23] MEDS: Acetaminophen/HYDROcodone 325-5 MG Tab PO PRN (22:19)
[2017-08-23] MEDS: Insulin Detemir 100 Units/ML 3 ML Pen SUBCUT SCH (22:30)
[2017-08-23] MEDS: Aspirin/Dipyridamole 200-25 MG Cap.ER PO SCH (22:35)
[2017-08-23] MEDS: Docusate Sodium 100 MG Cap PO SCH (22:35)
[2017-08-23] MEDS: Gabapentin 300 MG Cap PO SCH (22:36)
[2017-08-23] MEDS: Cyclobenzaprine 10 MG Tab PO SCH (22:36)
[2017-08-23] MEDS: atorvaSTATin 20 MG Tab PO SCH (22:36)
[2017-08-23] MEDS: Nystatin Topical Powder 15 GM Bottle TOP SCH (22:36)
[2017-08-23] MEDS: Finasteride 5 MG Tab PO SCH (22:36)
[2017-08-23] MEDS: risperiDONE 1 MG Tab PO SCH (22:37)
[2017-08-23] MEDS: Sennosides 8.6 MG Tab PO SCH (22:38)
[2017-08-23] MEDS: Sodium Chloride 0.9% 500 ML IV SCH (23:00)
[2017-08-23] MEDS ORDERED: Sodium Chloride 0.9% 500 ML IV ONE (23:00)
[2017-08-24] MEDS: Piperacillin/Tazobactam 4.5 GM in Sodium Chloride 0.9% 100 ML IV SCH ×4 (05:00→22:13)
[2017-08-24] MEDS: Pantoprazole 40 MG Tab.CR PO SCH (06:46)
[2017-08-24] MEDS: Gabapentin 300 MG Cap PO SCH ×3 (07:48→20:00)
[2017-08-24] MEDS: Cyclobenzaprine 10 MG Tab PO SCH ×3 (07:48→20:27)
[2017-08-24] MEDS: Aluminum Hydroxide/Magnesium Hydroxide/Simethicone Susp 30 ML Cup PO SCH ×2 (07:48→17:27)
[2017-08-24] MEDS: Docusate Sodium 100 MG Cap PO SCH ×2 (07:49→20:27)
[2017-08-24] MEDS: Ferrous Sulfate 325 MG Tab PO SCH ×2 (07:49→17:27)
[2017-08-24] MEDS: Sertraline 50 MG Tab PO SCH (07:49)
[2017-08-24] MEDS: Furosemide 20 MG Tab PO SCH (07:49)
[2017-08-24] MEDS: Aspirin/Dipyridamole 200-25 MG Cap.ER PO SCH ×2 (07:49→20:26)
[2017-08-24] MEDS: Multivitamin, Childrens Tab.Chew PO SCH (07:49)
[2017-08-24] MEDS: risperiDONE 1 MG Tab PO SCH ×2 (07:50→20:26)
[2017-08-24] MEDS: Nystatin Topical Powder 15 GM Bottle TOP SCH ×3 (08:10→20:28)
[2017-08-24] MEDS: Acetaminophen/HYDROcodone 325-5 MG Tab PO SCH (10:55)
[2017-08-24] MEDS: Lactobacillus Acidophilus/Lactobacillus Sporogenes (Probiotic) Tab PO SCH (11:00)
[2017-08-24] MEDS: Spironolactone 25 MG Tab PO SCH (12:15)
[2017-08-24] MEDS: Finasteride 5 MG Tab PO SCH (20:26)
[2017-08-24] MEDS: Sennosides 8.6 MG Tab PO SCH (20:27)
[2017-08-24] MEDS: atorvaSTATin 20 MG Tab PO SCH (20:27)
[2017-08-24] MEDS: Insulin Detemir 100 Units/ML 3 ML Pen SUBCUT SCH (20:31)
[2017-08-25] MEDS: Piperacillin/Tazobactam 4.5 GM in Sodium Chloride 0.9% 100 ML IV SCH ×4 (04:16→22:19)
[2017-08-25] MEDS: Pantoprazole 40 MG Tab.CR PO SCH (06:10)
[2017-08-25] MEDS: Cyclobenzaprine 10 MG Tab PO SCH ×3 (07:33→20:17)
[2017-08-25] MEDS: Docusate Sodium 100 MG Cap PO SCH ×2 (07:33→20:17)
[2017-08-25] MEDS: Multivitamin, Childrens Tab.Chew PO SCH (07:33)
[2017-08-25] MEDS: Ferrous Sulfate 325 MG Tab PO SCH ×2 (07:33→16:40)
[2017-08-25] MEDS: Aspirin/Dipyridamole 200-25 MG Cap.ER PO SCH ×2 (07:33→20:16)
[2017-08-25] MEDS: Gabapentin 300 MG Cap PO SCH ×3 (07:34→20:16)
[2017-08-25] MEDS: Aluminum Hydroxide/Magnesium Hydroxide/Simethicone Susp 30 ML Cup PO SCH ×2 (07:34→16:40)
[2017-08-25] MEDS: Furosemide 20 MG Tab PO SCH (07:34)
[2017-08-25] MEDS: Sertraline 50 MG Tab PO SCH (07:35)
[2017-08-25] MEDS: Nystatin Topical Powder 15 GM Bottle TOP SCH ×3 (07:35→20:00)
[2017-08-25] MEDS: risperiDONE 1 MG Tab PO SCH ×2 (07:38→20:17)
[2017-08-25] MEDS ORDERED: Tuberculin, PPD 5 Units/0.1 ML 1 ML MDV IDERM ONE (08:00)
[2017-08-25] MEDS: Acetaminophen/HYDROcodone 325-5 MG Tab PO SCH (10:57)
[2017-08-25] MEDS: Lactobacillus Acidophilus/Lactobacillus Sporogenes (Probiotic) Tab PO SCH (11:22)
[2017-08-25] MEDS: atorvaSTATin 20 MG Tab PO SCH (20:16)
[2017-08-25] MEDS: Finasteride 5 MG Tab PO SCH (20:16)
[2017-08-25] MEDS: Sennosides 8.6 MG Tab PO SCH (20:17)
[2017-08-25] MEDS: Insulin Detemir 100 Units/ML 3 ML Pen SUBCUT SCH (20:24)
[2017-08-26] MEDS: Piperacillin/Tazobactam 4.5 GM in Sodium Chloride 0.9% 100 ML IV SCH ×4 (03:49→22:00)
[2017-08-26] MEDS: Pantoprazole 40 MG Tab.CR PO SCH (06:41)
[2017-08-26] MEDS: Aluminum Hydroxide/Magnesium Hydroxide/Simethicone Susp 30 ML Cup PO SCH ×2 (08:55→17:38)
[2017-08-26] MEDS: Multivitamin, Childrens Tab.Chew PO SCH (08:55)
[2017-08-26] MEDS: Furosemide 20 MG Tab PO SCH (08:55)
[2017-08-26] MEDS: Sertraline 50 MG Tab PO SCH (08:56)
[2017-08-26] MEDS: Cyclobenzaprine 10 MG Tab PO SCH ×3 (08:56→20:23)
[2017-08-26] MEDS: risperiDONE 1 MG Tab PO SCH ×2 (08:56→20:24)
[2017-08-26] MEDS: Aspirin/Dipyridamole 200-25 MG Cap.ER PO SCH ×2 (08:56→20:23)
[2017-08-26] MEDS: Ferrous Sulfate 325 MG Tab PO SCH ×2 (08:56→17:38)
[2017-08-26] MEDS: Gabapentin 300 MG Cap PO SCH ×3 (08:56→20:23)
[2017-08-26] MEDS: Nystatin Topical Powder 15 GM Bottle TOP SCH ×3 (08:57→20:24)
[2017-08-26] MEDS: Docusate Sodium 100 MG Cap PO SCH ×2 (08:57→20:24)
[2017-08-26] MEDS: Collagenase Oint 30 GM Tube TOP SCH (09:10)
[2017-08-26] MEDS: Acetaminophen/HYDROcodone 325-5 MG Tab PO SCH (10:00)
--- NOTE | 2017-08-26 11:53 | PCM.PN ---
- General Info Date of Service: 08/26/17 Subjective Update: Patient states he feels fine Functional Status: Reports: Pain Controlled, Tolerating Diet - Review of Systems General: Reports: Weakness HEENT: Reports: No Symptoms Pulmonary: Reports: Shortness of Breath Cardiovascular: Reports: No Symptoms Gastrointestinal: Reports: No Symptoms Musculoskeletal: Reports: Leg Pain Skin: Reports: Other Neurological: Reports: Pre-Existing Deficit - Patient Data Vitals - Most Recent: Last Vital Signs Temp 36.6 C 08/26/17 08:00 Pulse 94 08/26/17 08:00 Resp 18 08/25/17 20:00 BP 149/87 H 08/26/17 08:00 Pulse Ox 100 08/26/17 08:00 Weight - Most Recent: 96.162 kg I&O - Last 24 Hours: Intake & Output 08/25/17 08/26/17 08/26/17 22:59 06:59 14:59 Intake Total 2164 600 Output Total 975 1900 Balance 1189 -1300 Lab Results Last 24 Hours: Laboratory Results - last 24 hr 08/25/17 08/26/17 Range/Units 19:22 07:46 POC Glucose 162 H 57 L (74-110) mg/dL Med Orders - Current: Current Medications Acetaminophen (Tylenol) 650 mg PO Q6H PRN PRN Reason: Pain Hydrocodone Bitart/Acetaminophen ([place] 325-5 Mg) 1 tab PO DAILY@1100 [facility] Last Admin: 08/26/17 10:00 Dose: 1 tab Hydrocodone Bitart/Acetaminophen ([place] 325-5 Mg) 1 - 2 tab PO Q6HR PRN PRN Reason: Pain Last Admin: 08/23/17 22:19 Dose: 2 tab Al Hydroxide/Mg Hydroxide (Mag-Al Plus) 30 ml PO BIDMEALS [facility] Last Admin: 08/26/17 08:55 Dose: 30 ml Albuterol/Ipratropium (Duoneb 3.0-0.5 Mg/3 Ml) 3 ml NEB Q4H PRN PRN Reason: Wheezing Atorvastatin Calcium (Lipitor) 20 mg PO BEDTIME [facility] Last Admin: 08/25/17 20:16 Dose: 20 mg Collagenase (Santyl Oint) 1 gm TOP DAILY [facility] Last Admin: 08/26/17 09:10 Dose: 1 applic Cyclobenzaprine HCl (Flexeril) 10 mg PO TID [facility] Last Admin: 08/26/17 08:56 Dose: 10 mg Diphenhydramine HCl (Benadryl) 50 mg PO Q6H PRN PRN Reason: Itching Dipyridamole/Aspirin (Aggrenox 200-25 Mg) 1 cap PO BID [facility] Last Admin: 08/26/17 08:56 Dose: 1 cap Docusate Sodium (Colace) 100 mg PO BID [facility] Last Admin: 08/26/17 08:57 Dose: Not Given Fentanyl (Duragesic) 12 mcg TRDERM Q72H [facility] Ferrous Sulfate (Ferrous Sulfate) 325 mg PO BIDMEALS [facility] Last Admin: 08/26/17 08:56 Dose: 325 mg Finasteride (Proscar) 5 mg PO QPM [facility] Last Admin: 08/25/17 20:16 Dose: 5 mg Furosemide (Lasix) 20 mg PO DAILY [facility] Last Admin: 08/26/17 08:55 Dose: 20 mg Gabapentin (Neurontin) 300 mg PO TID [facility] Last Admin: 08/26/17 08:56 Dose: 300 mg Piperacillin Sod/Tazobactam (Sod 4.5 gm/ Sodium Chloride) 100 mls @ 200 mls/hr IV Q6H [facility] Last Admin: 08/26/17 09:58 Dose: 200 mls/hr Vancomycin HCl 1 gm/ Sodium (Chloride) 250 mls @ 200 mls/hr IV Q12H [facility] Last Admin: 08/26/17 02:40 Dose: 200 mls/hr Sodium Chloride (Normal Saline) 500 mls @ 30 mls/hr IV ASDIRECTED [facility] Last Admin: 08/23/17 23:00 Dose: 30 mls/hr Insulin Detemir (Levemir) 20 unit SUBCUT BEDTIME [facility] Last Admin: 08/25/17 20:24 Dose: 20 units Lactobacillus Acidophilus (Acidolphilus Extra Strength) 1 tab PO DAILY@1200 [facility] Last Admin: 08/25/17 11:22 Dose: 1 tab Loperamide HCl (Imodium) 2 mg PO Q2H PRN PRN Reason: DIARRHEA Magnesium Hydroxide (Milk Of Magnesia) 30 ml PO DAILY PRN PRN Reason: Constipation Meclizine HCl (Antivert) 25 mg PO DAILY PRN PRN Reason: DIZZINESS Meclizine HCl (Antivert) 25 mg PO DAILY@1100 [facility] Last Admin: 08/26/17 10:00 Dose: 25 mg Miscellaneous Information (Remove Patch) 1 ea TRDERM Q72H [facility] Multivitamins/Minerals/Vitamin C (Childrens Chewable Vitamin) 1 tab PO DAILY [facility] Last Admin: 08/26/17 08:55 Dose: 1 tab Nystatin (Nystop) 0 gm TOP TID [facility] Last Admin: 08/26/17 08:57 Dose: 1 applic Pantoprazole Sodium (Protonix) 40 mg PO ACBREAKFAST [facility] Last Admin: 08/26/17 06:41 Dose: 40 mg Risperidone (Risperidal) 0.5 mg PO BID [facility] Last Admin: 08/26/17 08:56 Dose: 0.5 mg Senna (Senna) 17.2 mg PO BEDTIME [facility] Last Admin: 08/25/17 20:17 Dose: Not Given Sertraline HCl (Zoloft) 50 mg PO DAILY [facility] Last Admin: 08/26/17 08:56 Dose: 50 mg Spironolactone (Aldactone) 12.5 mg PO Q48H [facility] Last Admin: 08/24/17 12:15 Dose: 12.5 mg Discontinued Medications Vancomycin HCl 1 gm/ Sodium (Chloride) 250 mls @ 200 mls/hr IV Q12H [facility] Last Admin: 08/23/17 21:18 Dose: Not Given Senna/Docusate Sodium (Senna Plus) Confirm Administered Dose 2 tab .ROUTE .STK- MED ONE Stop: 08/23/17 21:56 Last Admin: 08/23/17 22:23 Dose: 2 tab Tuberculin PPD (Aplisol) 5 unit IDERM ONETIME ONE Stop: 08/23/17 14:46 Last Admin: 08/24/17 12:05 Dose: Not Given Tuberculin PPD (Aplisol) 5 unit IDERM ONETIME ONE Stop: 08/25/17 08:01 - Exam General: Alert HEENT: Pupils Equal, Pupils Reactive, EOMI Neck: Supple Lungs: Decreased Breath Sounds, Rales, Rhonchi Cardiovascular: Regular Rate, Regular Rhythm GI/Abdominal Exam: Normal Bowel Sounds, Soft, Non-Tender - Problem List & Annotations (1) Palliative care patient SNOMED Code(s): 730681821 Code(s): Z51.5 - ENCOUNTER FOR PALLIATIVE CARE Status: Chronic Priority: High (2) Below knee amputation status SNOMED Code(s): 025211763 Code(s): Z89.519 - ACQUIRED ABSENCE OF UNSPECIFIED LEG BELOW KNEE Status: Acute Priority: High Qualifiers: Laterality: right Qualified Code(s): Z89.511 - Acquired absence of right leg below knee (3) Cellulitis of toe of right foot SNOMED Code(s): 43811248 Code(s): L03.031 - CELLULITIS OF RIGHT TOE Status: Acute Priority: High (4) Empyema lung SNOMED Code(s): 556507544 Code(s): J86.9 - PYOTHORAX WITHOUT FISTULA Status: Acute Priority: High (5) Pleural effusion SNOMED Code(s): 08458145 Code(s): J90 - PLEURAL EFFUSION, NOT ELSEWHERE CLASSIFIED Status: Acute Priority: High (6) Pneumonia SNOMED Code(s): 379155092 Code(s): J18.9 - PNEUMONIA, UNSPECIFIED ORGANISM Status: Acute Priority: High Qualifiers: Pneumonia type: due to unspecified organism (7) Wound infection after surgery SNOMED Code(s): 28232627 Code(s): T81.4XXA - INFECTION FOLLOWING A PROCEDURE, INITIAL ENCOUNTER Status: Acute Priority: High Qualifiers: Encounter type: subsequent encounter Qualified Code(s): T81.4XXD - Infection following a procedure, subsequent encounter (8) Diabetes SNOMED Code(s): 64530047 Code(s): E11.9 - TYPE 2 DIABETES MELLITUS WITHOUT COMPLICATIONS Status: Chronic Priority: High Qualifiers: Diabetes mellitus complication status: with skin complications Diabetes mellitus complication detail: with other skin complication Diabetes mellitus 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 insulin 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: with 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 (9) 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 SNOMED Code(s): 76050533 Code(s): I69.359 - HEMIPLGA FOLLOWING CEREBRAL INFARCTION AFFECTING UNSP SIDE Status: Chronic Priority: Medium (10) History of CVA (cerebrovascular accident) SNOMED Code(s): 627125788 Code(s): Z86.73 - PRSNL HX OF TIA (TIA), AND CEREB INFRC W/O RESID DEFICITS Status: Chronic Priority: Medium - Problem List Review Problem List Initiated/Reviewed/Updated: Yes - My Orders Last 24 Hours: My Active Orders 08/26/17 08:30 Collagenase [Santyl Oint] 1 gm TOP DAILY 08/26/17 12:00 Remove Patch 1 ea TRDERM Q72H fentaNYL [Duragesic] 12 mcg TRDERM Q72H 08/26/17 14:30 VANCOMYCIN TROUGH [CHEM] Routine - Plan Plan:: Discussed the need for thoracocentesis with patient and family. Patient refuses any further intervention but does want antibiotics continued. We will continue current cares and comfort cares.
[2017-08-26] MEDS: Spironolactone 25 MG Tab PO SCH (12:39)
[2017-08-26] MEDS: Lactobacillus Acidophilus/Lactobacillus Sporogenes (Probiotic) Tab PO SCH (12:39)
[2017-08-26] MEDS: fentaNYL 12 MCG/HR Transdermal Patch TRDERM SCH (12:40)
[2017-08-26] MEDS: Acetaminophen/HYDROcodone 325-5 MG Tab PO PRN (12:48)
[2017-08-26] MEDS: Sodium Chloride 0.9% 500 ML IV SCH (16:32)
[2017-08-26] MEDS: atorvaSTATin 20 MG Tab PO SCH (20:23)
[2017-08-26] MEDS: Finasteride 5 MG Tab PO SCH (20:23)
[2017-08-26] MEDS: Sennosides 8.6 MG Tab PO SCH (20:26)
[2017-08-26] MEDS: Insulin Detemir 100 Units/ML 3 ML Pen SUBCUT SCH (20:28)
[2017-08-27] MEDS: Piperacillin/Tazobactam 4.5 GM in Sodium Chloride 0.9% 100 ML IV SCH ×4 (04:20→21:59)
[2017-08-27] MEDS ORDERED: Pantoprazole 40 MG Tab.CR ONE (10:00)
[2017-08-27] MEDS ORDERED: Piperacillin/Tazobactam 4.5 GM Vial ONE (10:00)
[2017-08-27] MEDS ORDERED: risperiDONE 1 MG Tab ONE (10:00)
[2017-08-27] MEDS ORDERED: Aspirin/Dipyridamole 200-25 MG Cap.ER ONE (10:00)
[2017-08-27] MEDS ORDERED: Aluminum Hydroxide/Magnesium Hydroxide/Simethicone Susp 30 ML Cup ONE (10:00)
[2017-08-27] MEDS ORDERED: Cyclobenzaprine 10 MG Tab ONE ×2 (10:00)
[2017-08-27] MEDS ORDERED: Multivitamins with Iron/Calcium/Folic Acid/Minerals Tab ONE (10:00)
[2017-08-27] MEDS ORDERED: Vancomycin 1 GM SDV ONE (10:00)
[2017-08-27] MEDS ORDERED: Sertraline 50 MG Tab ONE (10:00)
[2017-08-27] MEDS ORDERED: Acetaminophen/HYDROcodone 325-5 MG Tab ONE (10:00)
[2017-08-27] MEDS ORDERED: Lactobacillus Acidophilus/Lactobacillus Sporogenes (Probiotic) Tab ONE (10:00)
[2017-08-27] MEDS ORDERED: Ferrous Sulfate 325 MG Tab ONE (10:00)
[2017-08-27] MEDS ORDERED: Furosemide 20 MG Tab ONE (10:00)
[2017-08-27] MEDS ORDERED: Gabapentin 300 MG Cap ONE ×2 (10:00)
--- NOTE | 2017-08-27 15:29 | PCM.SN ---
- Free Text/Narrative Note: Patient doing well and denies any sob or pain. Wound checked and medial side healed with middle to lateral wound healing with areas of irritation but improved from 2-3 days ago. Continue current wound care management. Continue antibiotics and repeat CXR on with labs.
[2017-08-27] MEDS: Multivitamin, Childrens Tab.Chew PO SCH (16:01)
[2017-08-27] MEDS: Pantoprazole 40 MG Tab.CR PO SCH (16:01)
[2017-08-27] MEDS: Aspirin/Dipyridamole 200-25 MG Cap.ER PO SCH ×2 (16:01→21:08)
[2017-08-27] MEDS: Aluminum Hydroxide/Magnesium Hydroxide/Simethicone Susp 30 ML Cup PO SCH ×2 (16:02→16:48)
[2017-08-27] MEDS: Ferrous Sulfate 325 MG Tab PO SCH ×2 (16:02→16:49)
[2017-08-27] MEDS: Docusate Sodium 100 MG Cap PO SCH ×2 (16:02→21:10)
[2017-08-27] MEDS: Nystatin Topical Powder 15 GM Bottle TOP SCH ×3 (16:02→21:10)
[2017-08-27] MEDS: Furosemide 20 MG Tab PO SCH (16:02)
[2017-08-27] MEDS: Gabapentin 300 MG Cap PO SCH ×2 (16:02→21:07)
[2017-08-27] MEDS: Cyclobenzaprine 10 MG Tab PO SCH ×2 (16:02→21:09)
[2017-08-27] MEDS: Collagenase Oint 30 GM Tube TOP SCH (16:03)
[2017-08-27] MEDS: Sertraline 50 MG Tab PO SCH (16:03)
[2017-08-27] MEDS: risperiDONE 1 MG Tab PO SCH ×2 (16:03→21:13)
[2017-08-27] MEDS: Lactobacillus Acidophilus/Lactobacillus Sporogenes (Probiotic) Tab PO SCH (16:04)
[2017-08-27] MEDS: Acetaminophen/HYDROcodone 325-5 MG Tab PO SCH (16:04)
[2017-08-27] MEDS: Albuterol/Ipratropium 3.0-0.5 MG/3 ML Neb Soln NEB PRN ×2 (18:14→22:52)
[2017-08-27] MEDS: Finasteride 5 MG Tab PO SCH (21:08)
[2017-08-27] MEDS: Sennosides 8.6 MG Tab PO SCH (21:08)
[2017-08-27] MEDS: atorvaSTATin 20 MG Tab PO SCH (21:09)
[2017-08-27] MEDS: Insulin Detemir 100 Units/ML 3 ML Pen SUBCUT SCH (21:11)
[2017-08-28] MEDS: Piperacillin/Tazobactam 4.5 GM in Sodium Chloride 0.9% 100 ML IV SCH ×4 (04:53→21:17)
[2017-08-28] MEDS: Pantoprazole 40 MG Tab.CR PO SCH (06:37)
[2017-08-28] MEDS: Gabapentin 300 MG Cap PO SCH ×3 (09:40→21:12)
[2017-08-28] MEDS: Multivitamin, Childrens Tab.Chew PO SCH (09:40)
[2017-08-28] MEDS: Aspirin/Dipyridamole 200-25 MG Cap.ER PO SCH ×2 (09:40→21:12)
[2017-08-28] MEDS: Cyclobenzaprine 10 MG Tab PO SCH ×3 (09:40→21:13)
[2017-08-28] MEDS: Aluminum Hydroxide/Magnesium Hydroxide/Simethicone Susp 30 ML Cup PO SCH ×2 (09:40→17:46)
[2017-08-28] MEDS: Sertraline 50 MG Tab PO SCH (09:40)
[2017-08-28] MEDS: Ferrous Sulfate 325 MG Tab PO SCH ×2 (09:41→17:46)
[2017-08-28] MEDS: Furosemide 20 MG Tab PO SCH ×2 (09:41→21:13)
[2017-08-28] MEDS: Nystatin Topical Powder 15 GM Bottle TOP SCH ×3 (09:41→20:00)
[2017-08-28] MEDS: Docusate Sodium 100 MG Cap PO SCH ×2 (09:41→21:13)
[2017-08-28] MEDS: risperiDONE 1 MG Tab PO SCH ×2 (09:42→21:14)
[2017-08-28] MEDS: Lactobacillus Acidophilus/Lactobacillus Sporogenes (Probiotic) Tab PO SCH (11:15)
[2017-08-28] MEDS: Acetaminophen/HYDROcodone 325-5 MG Tab PO SCH (11:16)
--- NOTE | 2017-08-28 11:16 | PCM.SN ---
- Free Text/Narrative Note: Patient denies any sob or chest pain. No complaints but states he doesn't feel great. Nursing report a rash of the abdomen and some abdominal distention. Examination shows dependent edema of the left leg and flank with likely venous stasis dermatitis. Right lower leg wound healing well and stable with wound care follow up. Left upper lung slight expiratory wheezes with decreased air sounds. No air sound of left lower lung. Discussed plan of care with patient and discussed thoracocentesis if pleural effusion worsens. Patient states he wants no surgical intervention and understands it could prevent him from breathing and kill him. He would rather than go for any further surgical procedures.
[2017-08-28] MEDS: Collagenase Oint 30 GM Tube TOP SCH (14:34)
[2017-08-28] MEDS: atorvaSTATin 20 MG Tab PO SCH (21:13)
[2017-08-28] MEDS: Sennosides 8.6 MG Tab PO SCH (21:14)
[2017-08-28] MEDS: Finasteride 5 MG Tab PO SCH (21:14)
[2017-08-28] MEDS: Insulin Detemir 100 Units/ML 3 ML Pen SUBCUT SCH (21:37)
[2017-08-29] MEDS: Piperacillin/Tazobactam 4.5 GM in Sodium Chloride 0.9% 100 ML IV SCH ×3 (04:00→16:00)
[2017-08-29] MEDS: Pantoprazole 40 MG Tab.CR PO SCH (06:13)
[2017-08-29] MEDS: Sodium Chloride 0.9% 500 ML IV SCH (07:36)
[2017-08-29] MEDS: risperiDONE 1 MG Tab PO SCH (07:39)
[2017-08-29] MEDS: Docusate Sodium 100 MG Cap PO SCH (07:39)
[2017-08-29] MEDS: Multivitamin, Childrens Tab.Chew PO SCH (07:45)
[2017-08-29] MEDS: Gabapentin 300 MG Cap PO SCH ×2 (07:45→14:45)
[2017-08-29] MEDS: Aspirin/Dipyridamole 200-25 MG Cap.ER PO SCH (07:45)
[2017-08-29] MEDS: Furosemide 20 MG Tab PO SCH (07:45)
[2017-08-29] MEDS: Sertraline 50 MG Tab PO SCH (07:45)
[2017-08-29] MEDS: Cyclobenzaprine 10 MG Tab PO SCH ×2 (07:45→14:45)
[2017-08-29] MEDS: Ferrous Sulfate 325 MG Tab PO SCH ×2 (07:46→17:32)
[2017-08-29] MEDS: Nystatin Topical Powder 15 GM Bottle TOP SCH ×2 (07:47→14:00)
[2017-08-29] MEDS: Aluminum Hydroxide/Magnesium Hydroxide/Simethicone Susp 30 ML Cup PO SCH ×2 (07:47→17:32)
[2017-08-29] MEDS ORDERED: Spironolactone 25 MG Tab PO SCH (08:00)
[2017-08-29] MEDS: Collagenase Oint 30 GM Tube TOP SCH (08:45)
[2017-08-29] MEDS: Lactobacillus Acidophilus/Lactobacillus Sporogenes (Probiotic) Tab PO SCH (11:25)
[2017-08-29] MEDS: Acetaminophen/HYDROcodone 325-5 MG Tab PO SCH (11:26)
--- NOTE | 2017-08-29 12:44 | CR ---
DATE OF SERVICE: 08/29/2017 CLINICAL DATA: Pleural effusion vs empyema. PORTABLE CHEST: Comparison is made to a prior exam dated 08/19/2017. The patient is rotated to the left and in an apical lordotic position. The patient is status post median sternotomy. The heart size cannot be adequately determined due to the large left pleural effusion. It does not appear grossly changed from the prior study. There is a persistent large left pleural effusion. It appears essentially unchanged from the prior exam. There is persistent atelectasis and consolidation of the left mid and lower lung with residual aerated lung in the left apical region. There are mild atelectatic changes in the right lung base. The right lung is otherwise clear. The exam is otherwise unchanged from the prior. [id number] [facility]
[2017-08-29] MEDS: fentaNYL 12 MCG/HR Transdermal Patch TRDERM SCH (14:00)
[2017-08-29 15:43] VITALS: BP 138/64
[2017-08-29] MEDS: Insulin Detemir 100 Units/ML 3 ML Pen SUBCUT SCH (19:35)
[2017-08-29] MEDS ORDERED: Ondansetron 4 MG/2 ML SDV ONE (19:44)
[2017-08-29] MEDS ORDERED: Morphine 2 MG/ML Syringe ONE (19:44)
[2017-08-29] MEDS ORDERED: Potassium Chloride 20 MEQ Tab.ER PO SCH (20:00)
--- NOTE | 2017-09-06 19:26 | PCM.DCSUM1 ---
Discharge Summary - Discharge Data Discharge Date: 08/29/17 Discharge Disposition: 20 Preliminary Cause of *Q: Respiratory Failure Condition: - Discharge Diagnosis/Problem(s) (1) Palliative care patient SNOMED Code(s): 369576136 ICD Code: Z51.5 - ENCOUNTER FOR PALLIATIVE CARE Status: Chronic Priority : High (2) Below knee amputation status SNOMED Code(s): 378974527 ICD Code: Z89.519 - ACQUIRED ABSENCE OF UNSPECIFIED LEG BELOW KNEE Status: Acute Priority: High Qualifiers: Laterality: right Qualified Code(s): Z89.511 - Acquired absence of right leg below knee (3) Cellulitis of toe of right foot SNOMED Code(s): 84568462 ICD Code: L03.031 - CELLULITIS OF RIGHT TOE Status: Acute Priority: High (4) Empyema lung SNOMED Code(s): 388222589 ICD Code: J86.9 - PYOTHORAX WITHOUT FISTULA Status: Acute Priority: High (5) Pleural effusion SNOMED Code(s): 89291268 ICD Code: J90 - PLEURAL EFFUSION, NOT ELSEWHERE CLASSIFIED Status: Acute Priority: High (6) Pneumonia SNOMED Code(s): 280187309 ICD Code: J18.9 - PNEUMONIA, UNSPECIFIED ORGANISM Status: Acute Priority : High Qualifiers: Pneumonia type: due to unspecified organism (7) Wound infection after surgery SNOMED Code(s): 23763130 ICD Code: T81.4XXA - INFECTION FOLLOWING A PROCEDURE, INITIAL ENCOUNTER Status: Acute Priority: High Qualifiers: Encounter type: subsequent encounter Qualified Code(s): T81.4XXD - Infection following a procedure, subsequent encounter (8) Diabetes SNOMED Code(s): 72314114 ICD Code: E11.9 - TYPE 2 DIABETES MELLITUS WITHOUT COMPLICATIONS Status: Chronic Priority: High Qualifiers: Diabetes mellitus complication status: with skin complications Diabetes mellitus complication detail: with other skin complication Diabetes mellitus retirement insulin use: with 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 (9) 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 SNOMED Code(s): 80659676 ICD Code: I69.359 - HEMIPLGA FOLLOWING CEREBRAL INFARCTION AFFECTING UNSP SIDE Status: Chronic Priority: Medium (10) History of CVA (cerebrovascular accident) SNOMED Code(s): 914228849 ICD Code: Z86.73 - PRSNL HX OF TIA (TIA), AND CEREB INFRC W/O RESID DEFICITS Status: Chronic Priority: Medium - Patient Summary/Data Consults: Consultations 08/23/17 14:45 Consult to Php Wordpress Developer [CONS] Routine Comment: Physician Instructions: Quantity: Consult to Home Health [CONS] Routine Comment: Physician Instructions: Consult to Infection Prevention [CONS] Routine Comment: Physician Instructions: Consult to Metal Grader [CONS] Routine Comment: Physician Instructions: Consult to Wound Care Services [CONS] Routine Comment: Physician Instructions: OT Evaluation and Treatment [CONS] Routine Please Evaluate and Treat. OT Reason for Consult: ADL's This query below is only for informational purposes and is not editable. Admission Diagnosis/Problem: Weakness PT Evaluation and Treatment [CONS] Routine Please Evaluate and Treat. PT Reason for Consult: Wound Care This query below is only for informational purposes and is not editable. Admission Diagnosis/Problem: Weakness - Discharge Plan Home Medications: Home Meds Acetaminophen [Tylenol] 650 mg PO Q6H PRN 09/21/16 [History] Acetaminophen/HYDROcodone [[place] 325-5 MG] 1 - 2 tab PO Q6HR PRN 09/21/16 [ History] Aspirin/Dipyridamole [Aggrenox 200-25 MG] 1 cap PO BID 09/21/16 [History] Ferrous Sulfate 325 mg PO BIDMEALS 09/21/16 [History] Finasteride [Proscar] 5 mg PO QPM 09/21/16 [History] Furosemide [Lasix] 20 mg PO DAILY 09/21/16 [History] Gabapentin [Neurontin] 300 mg PO TID 09/21/16 [History] Multivitamins [Childrens Chewable Vitamin] 1 tab PO DAILY 09/21/16 [History] Pantoprazole [ProTONIX] 40 mg PO ACBREAKFAST 09/21/16 [History] Sertraline [Zoloft] 50 mg PO DAILY 09/21/16 [History] Spironolactone [Aldactone] 12.5 mg PO Q48H 09/21/16 [History] atorvaSTATin [Lipitor] 20 mg PO BEDTIME 09/21/16 [History] diphenhydrAMINE [Benadryl] 50 mg PO Q6H PRN 09/21/16 [History] Acetaminophen/HYDROcodone [[place] 325-5 MG] 1 tab PO DAILY@1100 10/01/16 [History ] Cyclobenzaprine [Flexeril] 10 mg PO TID 08/01/17 [History] fentaNYL [Duragesic] 12 mcg TD Q72H 08/01/17 [History] Docusate Sodium [Colace] 100 mg PO BID 08/13/17 [History] Insulin Detemir [Levemir] 20 unit SUBCUT BEDTIME 08/13/17 [History] Magnesium Hydroxide [Milk of Magnesia] 30 ml PO DAILY PRN 08/13/17 [History] Nystatin [Nystop] 15 gm TOP TID 08/13/17 [History] Acidophilus/Lactobac Spor [Acidolphilus X-Strength] 1 tab PO DAILY@1200 tablet 08/16/17 [Rx] Albuterol/Ipratropium [DuoNeb 3.0-0.5 MG/3 ML] 3 ml NEB Q4H PRN neb 08/16/17 [ Rx] Alum Hydrox/Mag Hydrox/Simeth [Mag-Al Plus] 30 ml PO BIDMEALS cup 08/16/17 [Rx] Levofloxacin [Levaquin] 750 mg PO DAILY@1600 tablet 08/16/17 [Rx] Loperamide [Imodium] 2 mg PO Q2H PRN cap 08/16/17 [Rx] Meclizine [Antivert] 25 mg PO DAILY PRN tab.chew 08/16/17 [Rx] Meclizine [Antivert] 25 mg PO DAILY@1100 tab.chew 08/16/17 [Rx] Remove Patch 1 ea TRDERM Q72H each 08/16/17 [Rx] Sennosides [Senna] 17.2 mg PO BEDTIME tablet 08/16/17 [Rx] risperiDONE [RisperiDAL] 0.5 mg PO BID tablet 08/16/17 [Rx] - Discharge Summary/Plan Comment DC Time >30 min.: No Discharge Summary/Plan Comment: Patient passed in the presence of nursing staff. Patient is DNR/DNI. Family notified. - Patient Data Vitals - Most Recent: Last Vital Signs Temp 36.6 C 08/29/17 08:00 Pulse 93 08/29/17 08:00 Resp 15 08/29/17 08:00 BP 138/64 08/29/17 08:00 Pulse Ox 96 08/29/17 08:00 Weight - Most Recent: 96.162 kg Med Orders - Current: Current Medications Discontinued Medications Acetaminophen (Tylenol) 650 mg PO Q6H PRN PRN Reason: Pain Hydrocodone Bitart/Acetaminophen ([place] 325-5 Mg) 1 tab PO DAILY@1100 [facility] Last Admin: 08/29/17 11:26 Dose: 1 tab Hydrocodone Bitart/Acetaminophen ([place] 325-5 Mg) 1 - 2 tab PO Q6HR PRN PRN Reason: Pain Last Admin: 08/26/17 12:48 Dose: 1 tab Hydrocodone Bitart/Acetaminophen ([place] 325-5 Mg) 1 tab .ROUTE .STK-MED ONE Stop: 08/27/17 10:01 Al Hydroxide/Mg Hydroxide (Mag-Al Plus) 30 ml PO BIDMEALS [facility] Last Admin: 08/29/17 17:32 Dose: 30 ml Al Hydroxide/Mg Hydroxide (Mag-Al Plus) 30 ml .ROUTE .STK-MED ONE Stop: 08/27/17 10:01 Albuterol/Ipratropium (Duoneb 3.0-0.5 Mg/3 Ml) 3 ml NEB Q4H PRN PRN Reason: Wheezing Last Admin: 08/27/17 22:52 Dose: 3 ml Atorvastatin Calcium (Lipitor) 20 mg PO BEDTIME [facility] Last Admin: 08/28/17 21:13 Dose: 20 mg Collagenase (Santyl Oint) 1 gm TOP DAILY [facility] Last Admin: 08/29/17 08:45 Dose: 1 applic Cyclobenzaprine HCl (Flexeril) 10 mg PO TID [facility] Last Admin: 08/29/17 14:45 Dose: 10 mg Cyclobenzaprine HCl (Flexeril) 10 mg .ROUTE .STK-MED ONE Stop: 08/27/17 10:01 Cyclobenzaprine HCl (Flexeril) 10 mg .ROUTE .STK-MED ONE Stop: 08/27/17 10:01 Diphenhydramine HCl (Benadryl) 50 mg PO Q6H PRN PRN Reason: Itching Dipyridamole/Aspirin (Aggrenox 200-25 Mg) 1 cap PO BID [facility] Last Admin: 08/29/17 07:45 Dose: 1 cap Dipyridamole/Aspirin (Aggrenox 200-25 Mg) 1 cap .ROUTE .STK-MED ONE Stop: 08/27/17 10:01 Docusate Sodium (Colace) 100 mg PO BID [facility] Last Admin: 08/29/17 07:39 Dose: 100 mg Fentanyl (Duragesic) 12 mcg TRDERM Q72H [facility] Last Admin: 08/29/17 14:00 Dose: 12 mcg Ferrous Sulfate (Ferrous Sulfate) 325 mg PO BIDMEALS [facility] Last Admin: 08/29/17 17:32 Dose: 325 mg Ferrous Sulfate (Ferrous Sulfate) 325 mg .ROUTE .STK-MED ONE Stop: 08/27/17 10:01 Finasteride (Proscar) 5 mg PO QPM [facility] Last Admin: 08/28/17 21:14 Dose: 5 mg Furosemide (Lasix) 20 mg PO DAILY [facility] Last Admin: 08/28/17 09:41 Dose: 20 mg Furosemide (Lasix) 40 mg PO BID [facility] Last Admin: 08/29/17 07:45 Dose: 40 mg Furosemide (Lasix) 20 mg .ROUTE .STK-MED ONE Stop: 08/27/17 10:01 Gabapentin (Neurontin) 300 mg PO TID [facility] Last Admin: 08/29/17 14:45 Dose: 300 mg Gabapentin (Neurontin) 300 mg .ROUTE .STK-MED ONE Stop: 08/27/17 10:01 Gabapentin (Neurontin) 300 mg .ROUTE .STK-MED ONE Stop: 08/27/17 10:01 Piperacillin Sod/Tazobactam (Sod 4.5 gm/ Sodium Chloride) 100 mls @ 200 mls/hr IV Q6H [facility] Last Admin: 08/29/17 16:00 Dose: Not Given Vancomycin HCl 1 gm/ Sodium (Chloride) 250 mls @ 200 mls/hr IV Q12H [facility] Last Admin: 08/23/17 21:18 Dose: Not Given Vancomycin HCl 1 gm/ Sodium (Chloride) 250 mls @ 200 mls/hr IV Q12H [facility] Last Admin: 08/29/17 16:00 Dose: Not Given Sodium Chloride (Normal Saline) 500 mls @ 30 mls/hr IV ASDIRECTED [facility] Last Admin: 08/29/17 07:36 Dose: 30 mls/hr Insulin Detemir (Levemir) 20 unit SUBCUT BEDTIME [facility] Last Admin: 08/25/17 20:24 Dose: 20 units Insulin Detemir (Levemir) 16 unit SUBCUT DAILY@1999 [facility] Last Admin: 08/27/17 21:11 Dose: 16 unit Insulin Detemir (Levemir) 14 unit SUBCUT DAILY@1999 [facility] Last Admin: 08/29/17 19:35 Dose: 14 unit Lactobacillus Acidophilus (Acidolphilus Extra Strength) 1 tab PO DAILY@1200 [facility] Last Admin: 08/29/17 11:25 Dose: 1 tab Lactobacillus Acidophilus (Acidolphilus Extra Strength) 1 tab .ROUTE .STK-MED ONE Stop: 08/27/17 10:01 Loperamide HCl (Imodium) 2 mg PO Q2H PRN PRN Reason: DIARRHEA Magnesium Hydroxide (Milk Of Magnesia) 30 ml PO DAILY PRN PRN Reason: Constipation Meclizine HCl (Antivert) 25 mg PO DAILY PRN PRN Reason: DIZZINESS Meclizine HCl (Antivert) 25 mg PO DAILY@1100 [facility] Last Admin: 08/29/17 11:26 Dose: 25 mg Meclizine HCl (Antivert) 25 mg .ROUTE .STK-MED ONE Stop: 08/27/17 10:01 Miscellaneous Information (Remove Patch) 1 ea TRDERM Q72H [facility] Last Admin: 08/29/17 15:05 Dose: Not Given Morphine Sulfate (Morphine) Confirm Administered Dose 2 mg .ROUTE .STK-MED ONE Stop: 08/29/17 19:45 Multivitamins/Minerals (Thera M Plus) 1 tab .ROUTE .STK-MED ONE Stop: 08/27/17 10:01 Multivitamins/Minerals/Vitamin C (Childrens Chewable Vitamin) 1 tab PO DAILY [facility] Last Admin: 08/29/17 07:45 Dose: 1 tab Nystatin (Nystop) 0 gm TOP TID [facility] Last Admin: 08/29/17 14:00 Dose: 1 applic Ondansetron HCl (Zofran) Confirm Administered Dose 4 mg .ROUTE .STK-MED ONE Stop: 08/29/17 19:45 Pantoprazole Sodium (Protonix) 40 mg PO ACBREAKFAST [facility] Last Admin: 08/29/17 06:13 Dose: 40 mg Pantoprazole Sodium (Protonix) 40 mg .ROUTE .STK-MED ONE Stop: 08/27/17 10:01 Piperacillin Sod/Tazobactam Sod (Zosyn) 4.5 gm .ROUTE .STK-MED ONE Stop: 08/27/17 10:01 Potassium Chloride (Klor-Con M20) 20 meq PO BID [facility] Risperidone (Risperidal) 0.5 mg PO BID [facility] Last Admin: 08/29/17 07:39 Dose: 0.5 mg Risperidone (Risperidal) 1 mg .ROUTE .STK-MED ONE Stop: 08/27/17 10:01 Senna (Senna) 17.2 mg PO BEDTIME [facility] Last Admin: 08/28/17 21:14 Dose: 17.2 mg Senna/Docusate Sodium (Senna Plus) Confirm Administered Dose 2 tab .ROUTE .STK- MED ONE Stop: 08/23/17 21:56 Last Admin: 08/23/17 22:23 Dose: 2 tab Sertraline HCl (Zoloft) 50 mg PO DAILY [facility] Last Admin: 08/29/17 07:45 Dose: 50 mg Sertraline HCl (Zoloft) 50 mg .ROUTE .STK-MED ONE Stop: 08/27/17 10:01 Spironolactone (Aldactone) 12.5 mg PO Q48H [facility] Last Admin: 08/26/17 12:39 Dose: 12.5 mg Spironolactone (Aldactone) 12.5 mg PO DAILY [facility] Last Admin: 08/29/17 07:43 Dose: 12.5 mg Tuberculin PPD (Aplisol) 5 unit IDERM ONETIME ONE Stop: 08/23/17 14:46 Last Admin: 08/24/17 12:05 Dose: Not Given Tuberculin PPD (Aplisol) 5 unit IDERM ONETIME ONE Stop: 08/25/17 08:01 Last Admin: 08/26/17 17:41 Dose: 5 unit Vancomycin HCl (Vancomycin) 1 gm .ROUTE .STK-MED ONE Stop: 08/27/17 10:01 *Q Meaningful Use (DIS) - VTE *Q VTE Criteria *Q: - Stroke *Q Stroke Criteria *Q: - AMI *Q AMI Criteria *Q:
== END 2017-08-29 19:45 | disposition expired | DRG 948 ==
LOC: LB.MS 14:45
PROVIDERS: ADMIT Family Medicine; ATTEND Family Medicine
DX: R53.1 Weakness (principal); Z66 Do not resuscitate; I87.2 Venous insufficiency (chronic) (peripheral); I25.10 Atherosclerotic heart disease of native coronary artery without angina pectoris; E78.00 Pure hypercholesterolemia, unspecified; I11.0 Hypertensive heart disease with heart failure; I50.9 Heart failure, unspecified; K21.9 Gastro-esophageal reflux disease without esophagitis; E11.9 Type 2 diabetes mellitus without complications; E61.1 Iron deficiency; Z89.511 Acquired absence of right leg below knee; Z86.73 Personal history of transient ischemic attack (TIA), and cerebral infarction without residual deficits; Z95.1 Presence of aortocoronary bypass graft
CPT/HCPCS: 36415; 71010; 80048; 80202; 82962; 83880; 85025; 86580; 97140-GO; 97597-GP; A9270-GY; J2543; J3370; J7030; J7040; J7050; J7620